=== PATIENT | female | born 1930 | race Caucasian/White ===

== ENCOUNTER 2016-11-10 | Outpatient (CLI) | payer MEDICARE, OTHER | END 2016-11-10 08:12 | disposition home or self-care (01) | CPT/HCPCS: A0425; A0428 ==

== ENCOUNTER 2016-11-10 | Outpatient (CLI) | payer MEDICARE, OTHER | END 2016-11-10 02:51 | disposition critical access hospital (66) | CPT/HCPCS: A0425; A0429 ==

== ENCOUNTER 2016-11-10 03:01 | Emergency (ER) | payer MEDICARE, OTHER ==
[2016-11-10] MEDS ORDERED: HYDROcod/ACETAM 5/325 MG TABLET ONE (05:25)
[2016-11-10] MEDS ORDERED: HYDROcod/ACETAM 5/325 MG TABLET PO STA (05:25)
== END 2016-11-10 08:07 | disposition home or self-care (01) ==
DX: S20.229A Contusion of unspecified back wall of thorax, initial encounter (principal); W18.09XA Striking against other object with subsequent fall, initial encounter; Y92.009 Unspecified place in unspecified non-institutional (private) residence as the place of occurrence of the external cause; M81.0 Age-related osteoporosis without current pathological fracture; Z79.01 Long term (current) use of anticoagulants; Z86.73 Personal history of transient ischemic attack (TIA), and cerebral infarction without residual deficits
CPT/HCPCS: 70450; 72072; 72125; 99283; A9270

== ENCOUNTER 2017-05-07 07:18 | Outpatient (CLI) | payer MEDICARE, OTHER | END 2017-05-07 07:19 | disposition EMS.NT | LOC: EMS 07:18 | PROVIDERS: ATTEND Surgery | DX: M79.604 Pain in right leg (principal); W01.0XXA Fall on same level from slipping, tripping and stumbling without subsequent striking against object, initial encounter; Y92.009 Unspecified place in unspecified non-institutional (private) residence as the place of occurrence of the external cause ==

== ENCOUNTER 2017-05-07 08:17 | Emergency (ER) | payer MEDICARE, OTHER ==
--- NOTE | 2017-05-07 08:50 | ED Physician Documentation ---
History of Present Illness - Stated complaint Stated Complaint: GLF - Chief complaint Chief Complaint: Ext Problem - History obtained from History obtained from: Patient, Family - Additonal information Additional information: This patient is a 86-year-old female brought in for evaluation of a ground- level fall that occurred shortly prior to arrival. History is obtained from the patient and also her nephew who is present in the room. She reports that she appeared to be a little weak for the past few days. The patient complains of a right-sided headache and right lateral hip pain. She denies any significant injury preceding the fall. She denies any syncopal episode. This patient does have a history of multiple medical problems including many recent falls one where she sustained a humerus fracture in the recent past. She does have chronic kidney disease hypertension and has had a gastrointestinal bleed requiring blood transfusion in the past. She also has epilepsy and a distant history of ovarian cancer. She is on anticoagulation. She takes Plavix not Coumadin and any other novel anticoagulant. She denies any chest pain or shortness of breath. She denies any nausea, vomiting, constipation, diarrhea or lower urinary symptoms. There is no complaints of neck pain weakness numbness or tingling. Review of systems: For pertinent positive and negative questions for the review of systems please see history of present illness. Otherwise all other systems have been reviewed and are negative. Dragon disclaimer: Parts of this medical record were created using voice recognition technology. Because of the inherent limitations of this system occasional same sounding word substitutions do occur and persist despite proofreading. Please read the document for context. 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 cancer : Incontinence HEENT: Macular degeneration Psych: None Musculoskeletal: None - Past Surgical History Past Surgical History: Yes /ORACLE IDENTITY MANAGEMENT CONSULTANT: Hysterectomy - Present Medications Home Medications: Ambulatory Orders Medication Instructions Recorded Confirmed Lisinopril [Zestril] 10 mg PO DAILY 07/18/13 11/10/16 Metoprolol Tartrate [Lopressor] 50 mg PO BID 07/18/13 11/10/16 Amlodipine Besylate 7.5 mg PO DAILY 01/02/16 11/10/16 Clopidogrel [Plavix] 75 mg PO DAILY 01/02/16 11/10/16 Hydrochlorothiazide 25 mg PO DAILY 01/02/16 11/10/16 lamoTRIgine [LaMICtal] 100 mg PO BID 01/02/16 11/10/16 Cyclobenzaprine [Flexeril] 10 mg PO TID PRN #10 tablet 11/10/16 Hydrocodone/Acetaminophen 1 - 2 each PO Q6H PRN #14 tablet 11/10/16 [Hydrocodon-Acetaminophen 5-325] - Allergies Allergies/Adverse Reactions: Allergies Allergy/AdvReac Type Severity Reaction Status Date / Time No Known Drug Allergies Allergy Verified 11/10/16 03:15 - Social History Does the pt smoke?: No Smoking Status: Never smoker Does the pt drink ETOH?: No Does the pt have substance abuse?: No - Immunizations Immunizations are current?: No - POLST Patient has POLST: Yes PD ED PE NORMAL - Vitals Vital signs reviewed: Yes - General General: Alert and oriented X 3, No acute distress, Other (Some mild delay in the patient's verbal responses) - HEENT HEENT: Other (Right posterior lateral cephalohematoma) - Neck Neck: Supple, no meningeal sign, No bony TTP, No adenopathy, Thyroid normal, No JVD, No bruit - Cardiac Cardiac: RRR, No murmur, No gallop, No rub - Respiratory Respiratory: No respiratory distress, Clear bilaterally - Abdomen Abdomen: Normal bowel sounds, Soft, Non tender, Non distended - Back Back: No CVA TTP, No spinal TTP - Derm Derm: Normal color, Other (Small abrasion to the right hand, small bruise to the left anterior chest,Small abrasion to the right hand, small bruise to the left anterior chest,) - Extremities Extremities: Other (Small abrasion right hand, normal range of motion of the right hip without limb length discrepancy, tenderness over the lateral greater trochanter area) - Neuro Neuro: Alert and oriented X 3, director of content and programming 2-12 intact, No motor deficit, No sensory deficit Results - Vitals Vitals: Vital Signs - 24 hr 05/07/17 08:25 Temperature 36.4 C L Heart Rate 69 Respiratory 16 Rate Blood Pressure 180/72 H O2 Saturation 98 Oxygen O2 Source Room air - Labs Labs: Laboratory Tests 05/07/17 05/07/17 05/07/17 09:30 09:35 09:35 WBC 12.0 H RBC 3.82 L Hgb 11.4 L Hct 35.0 L MCV 91.5 MCH 29.9 MCHC 32.6 RDW 13.3 Plt Count 267 MPV 7.8 L Neut # 10.2 H Lymph # 1.0 L Swain # 0.7 Eos # 0.1 Baso # 0.0 Absolute Nucleated RBC 0.00 Nucleated RBCs 0.0 PT 10.9 INR 1.0 APTT 25.3 Sodium Potassium Chloride Carbon Dioxide Anion Gap BUN Creatinine Estimated GFR (MDRD) Glucose Calcium Urine Color YELLOW Urine Clarity CLEAR Urine pH 6.0 Ur Specific [place] 1.010 Urine Protein NEGATIVE Urine Glucose (UA) NEGATIVE Urine Ketones NEGATIVE Urine Occult Blood TRACE-LYSE Urine Nitrite NEGATIVE Urine Bilirubin NEGATIVE Urine Urobilinogen 0.2 (NORMAL) Ur Leukocyte Esterase NEGATIVE Ur Microscopic Review NOT INDICATED Urine Culture Comments NOT INDICATED 05/07/17 09:35 WBC RBC Hgb Hct MCV MCH MCHC RDW Plt Count MPV Neut # Lymph # Swain # Eos # Baso # Absolute Nucleated RBC Nucleated RBCs PT INR APTT Sodium 140 Potassium 4.3 Chloride 104 Carbon Dioxide 26 Anion Gap 10.0 BUN 62 H Creatinine 2.2 H Estimated GFR (MDRD) 21 L Glucose 98 Calcium 9.3 Urine Color Urine Clarity Urine pH Ur Specific [place] Urine Protein Urine Glucose (UA) Urine Ketones Urine Occult Blood Urine Nitrite Urine Bilirubin Urine Urobilinogen Ur Leukocyte Esterase Ur Microscopic Review Urine Culture Comments PD MEDICAL DECISION MAKING - ED course ED course: This patient is elderly female who presents after having a mechanical fall this morning. She denies any preceding illness but her nephew does say that she was a little bit moreWeakness last several days. She was complaining of pain and injury to her right posterior lateral scalp, her right hip, and also her right hand. On examination she has a small parietal, occipital contusion on the right side. In regards to her hip she is tender over the greater trochanter and range of motion of the hip is somewhat normal so I suspect an overt or occult hip fracture much less so. In regards her hand there is a very superficial abrasion but there is no evidence of bony abnormality. A CT scan of the patient's head, neck and bony pelvis were performed, reviewed by me, and read by radiology. All of these studies show age-related changes however there are no acute abnormalities seen. There was a mention of moderate diverticulosis on CT scan of the Pelvis but the patient is asymptomatic for diverticulitis. She was able to demonstrate stability on her feet and blood work on this patient demonstrates chronic kidney disease which is known and persistent. There is no evidence of any acute abnormality and her urine is negative for infection. At this point in time the patient is medically stable for discharge to home. Disposition: To home Clinical impression: 1. Status post mechanical fall at home 2. Right occipital parietal cephalhematoma-small 3. Right greater trochanteric hip 4. Chronic kidney disease-stable 5. History of CVA with right-sided weakness-stableI #6 history of gastrointestinal bleed-stable contusion Departure - Departure Disposition: Home, Self Care Clinical Impression: Fall from ground level Contusion of hip and thigh Qualifiers: Encounter type: initial encounter Laterality: right Qualified Code(s): S70.01XA - Contusion of right hip, initial encounter; S70.11XA - Contusion of right thigh, initial encounter Cephalohematoma, non-, traumatic Qualifiers: Encounter type: initial encounter Qualified Code(s): S00.93XA - Contusion of unspecified part of head, initial encounter Condition: Good Instructions: ED Head Injury Closed, ED Hematoma, ED Contusion Hip Follow-Up: Deejay Mauro MD [Primary Care Provider] -
[2017-05-07] MEDS: SODIUM CHLORIDE 0.9% 1,000 ML IV ONE (09:16)
[2017-05-07 09:42] LABS: BASOPHILS % (AUTO) 0.2 %; EOSINOPHILS # (AUTO) 0.1 10^3/uL (0.0-0.7); EOSINOPHILS % (AUTO) 0.9 %; HGB - HEMOGLOBIN 11.4 g/dL (12.0-16.0); LYMPHOCYTES % (AUTO) 8.2 %; MEAN CORPUSCULAR HEMOGLOBIN 29.9 pg (27.0-31.0); MEAN CORPUSCULAR HGB CONC 32.6 g/dL (32.0-36.0); MEAN CORPUSCULAR VOLUME 91.5 fL (81.0-99.0); MEAN PLATELET VOLUME 7.8 fL (7.9-10.8); MONOCYTES # (AUTO) 0.7 10^3/uL (0.0-1.0); MONOCYTES % (AUTO) 5.9 %; NEUTROPHILS # (AUTO) 10.2 10^3/uL (1.5-6.6); NEUTROPHILS % (AUTO) 84.8 %; RED BLOOD COUNT 3.82 10^6/uL (4.20-5.40); RED CELL DISTRIBUTION WIDTH 13.3 % (12.0-15.0)
[2017-05-07 09:47] LABS: BILIRUBIN,URINE NEGATIVE (NEGATIVE)
[2017-05-07 09:49] LABS: CALCIUM 9.3 mg/dL (8.5-10.3); CREATININE 2.2 mg/dL (0.4-1.0); POTASSIUM 4.3 mmol/L (3.5-5.0)
--- NOTE | 2017-05-07 09:51 | CT Preliminary Report ---
Exam: CT Head W/O IMPRESSION: Moderate sized right posterior scalp hematoma. No acute intracranial process. 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 [facility] SITE ID: [id number]
--- NOTE | 2017-05-07 09:53 | CT Report ---
EXAM: CT HEAD WITHOUT CONTRAST EXAM DATE: 05/07/2017 09:07 AM. CLINICAL HISTORY: 86 year-old female post fall with right-sided cephalohematoma. Cephalohematoma. COMPARISON: 11/10/2016 and previous. TECHNIQUE: Multiaxial CT images were obtained from the foramen magnum to the vertex on an emergent ba sis. IV contrast: None. Reformats: Coronal. In accordance with CT protocol optimization, one or more of the following dose reduction techniques w ere utilized for this exam: automated exposure control, adjustment of mA and/or KV based on patient s ize, or use of iterative reconstructive technique. FINDINGS: Parenchyma: Generalized ecvw-sd-tmtkqeik cerebral and cerebellar atrophy, similar to prior exams. No intraparenchymal hemorrhage. No evidence of mass, midline shift, or CT findings of acute infarction. Areas of encephalomalacia in the left frontoparietal region consistent with old CVA, as previously. G ray-white differentiation is distinct. Extraaxial Spaces: Normal for age. No subdural or epidural collections identified. Ventricles: The ventricles and cortical sulci are enlarged, consistent with age-related tissue loss. Sinuses: Imaged paranasal sinuses, orbits, and mastoids show no significant abnormality. Bones: No evidence of fracture or calvarial defect. Other: Diffuse mild chronic microangiopathic white matter changes are evident. Small to moderate sized right posterior parietal scalp hematoma without underlying osseous abnormalit y. IMPRESSION: Moderate sized right posterior scalp hematoma. No acute intracranial process. 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 [facility] Referring Provider Line: [phone] SITE ID: [id number]
[2017-05-07 09:57] LABS: UA CHARGE (STRIP ONLY) YES; UR CULTURE IF IND NOT INDICATED
--- NOTE | 2017-05-07 09:57 | CT Preliminary Report ---
Exam: CT Cervical Spine W/O IMPRESSION: Stable cervical spine. No acute process or acute posttraumatic abnormality. Mild chronic compression deformities lower cervical and upper thoracic spine, stable. [facility] SITE ID: [id number]
--- NOTE | 2017-05-07 10:00 | CT Report ---
EXAM: CT CERVICAL SPINE WITHOUT CONTRAST DATE: 05/07/2017 09:07 AM HISTORY: 86-year-old female post fall with closed head injury. COMPARISONS: Similar study 11/10/2016 and previous. TECHNIQUE: Thin-section axial images were acquired of the cervical spine without contrast on an emerg ent basis. Post-processing: Coronal and sagittal reformats. Other: None. In accordance with CT protocol optimization, one or more of the following dose reduction techniques w ere utilized for this exam: automated exposure control, adjustment of mA and/or KV based on patient s ize, or use of iterative reconstructive technique. FINDINGS: Alignment: Accentuated cervical lordosis, chronic and stable. No subluxations. Bones: No fracture or acute bone lesion. Question of mild chronic compression deformities of the C6 a nd C7 vertebral bodies, similar to earlier studies. Compression deformities upper thoracic spine as w ell, chronic and stable. Interspace Levels/Facets: Multilevel degenerative disk disease, mild to moderate throughout the cervi emily and upper thoracic spine, chronic and stable. Associated degenerative facet disease. Musculature: Normal. No fatty atrophy. Other: The paravertebral and prevertebral soft tissues are normal. The lung apices are clear. Incidental note made of small low-attenuation bilateral thyroid nodules, similar to prior studies. IMPRESSION: Stable cervical spine. No acute process or acute posttraumatic abnormality. Mild chronic compression deformities lower cervical and upper thoracic spine, stable. [facility] Referring Provider Line: [phone] SITE ID: [id number]
[2017-05-07 10:03] LABS: PT - PROTHROMBIN TIME 10.9 secs (9.9-12.6)
--- NOTE | 2017-05-07 10:04 | CT Preliminary Report ---
Exam: CT Pelvis W/O IMPRESSION: No acute process or posttraumatic abnormality involving the pelvis or hips. 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 Incidental note made of moderate to severe diverticulosis of the visualized distal left and sigmoid c olon, without inflammatory change. [facility] SITE ID: [id number]
--- NOTE | 2017-05-07 10:07 | CT Report ---
EXAM: CT BONY PELVIS WITHOUT CONTRAST EXAM DATE: 05/07/2017 09:07 AM. CLINICAL HISTORY: Right hip pain post-fall in an 86-year-old female. COMPARISON: Pelvis and right hip radiographic study performed on 09/08/2011. TECHNIQUE: Thin-section axial images were acquired of the pelvis and both hips without contrast on an emergent basis. Post-processing: Coronal and sagittal reformats. Other: None. In accordance with CT protocol optimization, one or more of the following dose reduction techniques w ere utilized for this exam: automated exposure control, adjustment of mA and/or KV based on patient s ize, or use of iterative reconstructive technique. FINDINGS: Bones: No fracture or acute bone lesion. Sacroiliac Joints: Mild/moderate osteoarthritic changes, age appropriate. No subluxation. Symphysis Pubis: Unremarkable. Right Hip: Moderate to severe osteoarthritis with near kyjt-cv-agbt configuration. No subluxation or joint effusion. Left Hip: Moderate to severe osteoarthritis with near auqy-cd-ioew configuration. No subluxation or j oint effusion. Musculature: Normal. No fatty atrophy. Pelvic Cavity: Moderate to severe diverticulosis of the visualized distal left and sigmoid colon with out inflammatory change. Urinary bladder unremarkable. Uterus surgically absent. No free fluid or hem atoma. Other: No lymphadenopathy. No free air or free fluid. The other visualized soft tissues are unremarka ble. IMPRESSION: No acute process or posttraumatic abnormality involving the pelvis or hips. 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 Incidental note made of moderate to severe diverticulosis of the visualized distal left and sigmoid c olon, without inflammatory change. [facility] Referring Provider Line: [phone] SITE ID: [id number]
[2017-05-07 10:10] LABS: PARTIAL THROMBOPLASTIN TIME 25.3 secs (24.9-33.3)
[2017-05-07 10:29] VITALS: BP 175/63
== END 2017-05-07 10:37 | disposition home or self-care (01) ==
LOC: ED 08:17
DX: S70.01XA Contusion of right hip, initial encounter (principal); S70.11XA Contusion of right thigh, initial encounter; S00.83XA Contusion of other part of head, initial encounter; S60.511A Abrasion of right hand, initial encounter; W01.0XXA Fall on same level from slipping, tripping and stumbling without subsequent striking against object, initial encounter; I45.10 Unspecified right bundle-branch block; R94.31 Abnormal electrocardiogram [ECG] [EKG]; I10 Essential (primary) hypertension; Z86.73 Personal history of transient ischemic attack (TIA), and cerebral infarction without residual deficits; Z85.43 Personal history of malignant neoplasm of ovary
CPT/HCPCS: 36415; 70450; 72125; 72192; 80048; 81001; 81003; 85025; 85610; 85730; 87086; 93005; 99283; 99284

== ENCOUNTER 2017-05-30 09:32 | Outpatient (CLI) | payer MEDICARE, OTHER | END 2017-05-30 09:33 | disposition EMS.NT | LOC: EMS 09:32 | PROVIDERS: ATTEND Surgery | DX: S51.811A Laceration without foreign body of right forearm, initial encounter (principal); W01.0XXA Fall on same level from slipping, tripping and stumbling without subsequent striking against object, initial encounter; Y93.01 Activity, walking, marching and hiking; Y92.008 Other place in unspecified non-institutional (private) residence as the place of occurrence of the external cause ==

== ENCOUNTER 2017-08-19 17:08 | Outpatient (CLI) | payer MEDICARE, OTHER | END 2017-08-19 17:09 | disposition critical access hospital (66) | LOC: EMS 17:08 | PROVIDERS: ATTEND Surgery | DX: R07.89 Other chest pain (principal); S09.90XA Unspecified injury of head, initial encounter; W01.0XXA Fall on same level from slipping, tripping and stumbling without subsequent striking against object, initial encounter; Z79.01 Long term (current) use of anticoagulants; Y93.01 Activity, walking, marching and hiking; Y92.009 Unspecified place in unspecified non-institutional (private) residence as the place of occurrence of the external cause | CPT/HCPCS: A0425; A0427 ==

== ENCOUNTER 2017-08-19 17:20 | Emergency (ER) | payer MEDICARE, OTHER ==
--- NOTE | 2017-08-19 17:41 | ED Physician Documentation ---
History of Present Illness - Stated complaint Stated Complaint: GLF - Chief complaint Chief Complaint: Ext Problem - History obtained from History obtained from: Patient, EMS - History of Present Illness Timing: Today, How many hours ago (1) Pain level max: 5 Pain level now: 5 Improved by: nothing Worsened by: palpation - Additonal information Additional information: Patient is an 86-year-old female who was walking today, slipped tripped and fell backward striking her head. Also landed on the right ribs. Also complains of mild pain to the right hip. Unknown loss of consciousness. She does take Plavix. Nothing makes the pain better, worse with palpation and movement. She was not c-collared or backboarded with EMS. Review of Systems Ten Systems: 10 systems reviewed and negative Constitutional: denies: Fever, Chills Eyes: denies: Decreased vision, Photophobia Ears: denies: Ear pain Nose: denies: Rhinorrhea / runny nose, Congestion Throat: denies: Sore throat Cardiac: denies: Chest pain / pressure Respiratory: denies: Cough, Wheezing GI: denies: Abdominal Pain, Nausea, Vomiting, Diarrhea : denies: Dysuria Skin: denies: Rash Musculoskeletal: denies: Neck pain, Back pain Neurologic: denies: Focal weakness, Numbness, Confused, Altered mental status, Headache PD PAST MEDICAL HISTORY - Past Medical History Past Medical History: Yes Cardiovascular: Hypertension Respiratory: None Neuro: CVA Endocrine/Autoimmune: None GI: Chronic constipation 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 : Incontinence HEENT: Macular degeneration Psych: None Musculoskeletal: None - Past Surgical History Past Surgical History: Yes /SUPERVISOR 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: Hysterectomy - Present Medications Home Medications: Ambulatory Orders Medication Instructions Recorded Confirmed Lisinopril [Zestril] 1 tab PO DAILY 07/18/13 08/19/17 Metoprolol Tartrate [Lopressor] 50 mg PO BID 07/18/13 08/19/17 Amlodipine Besylate 7.5 mg PO DAILY 01/02/16 08/19/17 Clopidogrel [Plavix] 75 mg PO DAILY 01/02/16 08/19/17 Hydrochlorothiazide 25 mg PO DAILY 01/02/16 08/19/17 lamoTRIgine [LaMICtal] 100 mg PO BID 01/02/16 08/19/17 Hydrocodone/Acetaminophen 1 - 2 each PO Q6H PRN #14 tablet 11/10/16 [Hydrocodon-Acetaminophen 5-325] - Allergies Allergies/Adverse Reactions: Allergies Allergy/AdvReac Type Severity Reaction Status Date / Time No Known Drug Allergies Allergy Verified 08/19/17 17:29 - Social History Does the pt smoke?: No Smoking Status: Never smoker Does the pt drink ETOH?: No Does the pt have substance abuse?: No - Immunizations Immunizations are current?: No - POLST Patient has POLST: Yes PD ED PE NORMAL - Vitals Vital signs reviewed: Yes - General General: Alert and oriented X 3, No acute distress, Well developed/nourished - HEENT HEENT: PERRL, EOMI, Ears normal, Moist mucous membranes, Other (Mild occipital hematoma and abrasion to the right occiput.) - Neck Neck: Supple, no meningeal sign, Other (Mild cervical spine tenderness to palpation. No step-off or deformity) - Cardiac Cardiac: RRR, Strong equal pulses - Respiratory Respiratory: No respiratory distress, Clear bilaterally - Abdomen Abdomen: Soft, Non tender, Non distended - Back Back: No spinal TTP - Derm Derm: Warm and dry, Other (Tender to palpation over the right anterior lower ribs, approximately 10 through 12. No crepitus. No ecchymosis.) - Extremities Extremities: No deformity, Other (Mild tenderness to palpation over the right hip. Full range of motion present. Neurovascularly intact) - Neuro Neuro: Alert and oriented X 3, personal security specialist 2-12 intact, No motor deficit, No sensory deficit, Normal speech - Psych Psych: Normal mood, Normal affect Results - Vitals Vitals: Vital Signs - 24 hr 08/19/17 08/19/17 08/19/17 17:26 18:40 20:06 Temperature 36.5 C 36.6 C 36.5 C Heart Rate 80 85 Respiratory 16 15 Rate Blood Pressure 171/73 H 166/77 H O2 Saturation 97 97 Oxygen O2 Source Room air - Labs Labs: Laboratory Tests 08/19/17 08/19/17 08/19/17 17:59 17:59 17:59 WBC 6.9 RBC 4.04 L Hgb 12.3 Hct 37.9 MCV 93.7 MCH 30.5 MCHC 32.6 RDW 14.0 Plt Count 251 MPV 8.0 Neut # 5.4 Lymph # 1.0 L [place] # 0.5 Eos # 0.1 Baso # 0.0 Absolute Nucleated RBC 0.00 Nucleated RBC % 0.0 PT 10.5 INR 0.9 Sodium 138 Potassium 4.0 Chloride 100 L Carbon Dioxide 26 Anion Gap 12.0 BUN 46 H Creatinine 1.8 H Estimated GFR (MDRD) 27 L Glucose 94 Calcium 9.2 Total Bilirubin 0.4 AST 18 ALT 12 Alkaline Phosphatase 95 Total Protein 7.5 Albumin 4.5 Globulin 3.0 Albumin/Globulin Ratio 1.5 Lipase 31 - Rads (name of study) Head CT Radiology: Prelim report reviewed, EMP read contemporaneously, See rad report ( Small to moderate right parieto-occipital scalp hematoma and swelling. No calvarial fracture. 2. Generalized age-related cortical atrophic changes without evidence of acute intracranial abnormality. 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 ) cervical spine CT Radiology: Prelim report reviewed, EMP read contemporaneously, See rad report ( No fracture. Stable anterior compression fractures most notable at C6, C7, T1, T2, and T3 levels. 2. No spondylolisthesis. Exaggerated cervical extension is noted. Normal prevertebral soft tissues. 3. Multilevel degenerative disk and facet arthropathy is unchanged. ) R ribs w chest Radiology: Prelim report reviewed, EMP read contemporaneously, See rad report ( No definite acute fracture; right posterior fifth and sixth rib fractures are of uncertain age. Multiple old left rib fractures. 2. Mild cardiomegaly, increased slightly since 2010, with vascular fullness. ) R hip xray Radiology: Prelim report reviewed, EMP read contemporaneously, See rad report ( No definite acute disease.) PD MEDICAL DECISION MAKING - ED course Complexity details: reviewed results, re-evaluated patient, considered differential, d/w patient, d/w family ED course: Patient is an 86-year-old female who sustained a ground-level fall today. No acute findings on head CT, cervical spine CT, chest and rib x-rays as well as right hip x-ray. Wounds were cleansed and bandaged. No laceration repair. Warnings of infection and instructions on wound care given at bedside. head injury instructions given at bedside Patient and family counseled regarding signs and symptoms for which I believe and urgent re-evaluation would be necessary. Patient with good understanding of and agreement to plan and is comfortable going home at this time This document was made in part using voice recognition software. While efforts are made to proofread this document, sound alike and grammatical errors may occur. Departure - Departure Disposition: 01 Home, Self Care Clinical Impression: Abrasion Fall Qualifiers: Encounter type: initial encounter Qualified Code(s): W19.XXXA - Unspecified fall, initial encounter Head injury Qualifiers: Encounter type: initial encounter Qualified Code(s): S09.90XA - Unspecified injury of head, initial encounter Contusion of rib on right side Qualifiers: Encounter type: initial encounter Qualified Code(s): S20.211A - Contusion of right front wall of thorax, initial encounter Contusion, hip Qualifiers: Encounter type: initial encounter Laterality: right Qualified Code(s): S70.01XA - Contusion of right hip, initial encounter Condition: Good Instructions: ED Contusion Soft Tissue, ED Head Injury Closed Follow-Up: Deejay Mauro MD [Primary Care Provider] - Within 1 week Comments: Your CT scans and xray are normal tonight. Return if you worsen. You can use tylenol for pain. Discharge Date/Time: 08/19/17 20:46
[2017-08-19 18:10] LABS: BASOPHILS % (AUTO) 0.4 %; EOSINOPHILS # (AUTO) 0.1 10^3/uL (0.0-0.7); EOSINOPHILS % (AUTO) 0.9 %; HCT - HEMATOCRIT 37.9 % (37.0-47.0); HGB - HEMOGLOBIN 12.3 g/dL (12.0-16.0); LYMPHOCYTES % (AUTO) 13.9 %; MEAN CORPUSCULAR HEMOGLOBIN 30.5 pg (27.0-31.0); MEAN CORPUSCULAR HGB CONC 32.6 g/dL (32.0-36.0); MEAN CORPUSCULAR VOLUME 93.7 fL (81.0-99.0); MONOCYTES # (AUTO) 0.5 10^3/uL (0.0-1.0); MONOCYTES % (AUTO) 7.4 %; NEUTROPHILS # (AUTO) 5.4 10^3/uL (1.5-6.6); NEUTROPHILS % (AUTO) 77.4 %; RED BLOOD COUNT 4.04 10^6/uL (4.20-5.40); UNCORRECTED WHITE BLOOD COUNT 6.9 x10^3/uL; WHITE BLOOD COUNT 6.9 x10^3/uL (4.8-10.8)
[2017-08-19 18:15] LABS: INR 0.9 (0.8-1.2); PT - PROTHROMBIN TIME 10.5 secs (9.9-12.6)
[2017-08-19 18:23] LABS: ALBUMIN/GLOBULIN RATIO 1.5 (1.0-2.2); BILIRUBIN,TOTAL 0.4 mg/dL (0.2-1.0); CALCIUM 9.2 mg/dL (8.5-10.3); CREATININE 1.8 mg/dL (0.4-1.0); TOTAL PROTEIN 7.5 g/dL (6.7-8.2)
--- NOTE | 2017-08-19 19:02 | XRAY Preliminary Report ---
Exam: XR RIBS W/PA CHEST RT IMPRESSION: 1. No definite acute fracture; right posterior fifth and sixth rib fractures are of uncertain age. Mu ltiple old left rib fractures. 2. Mild cardiomegaly, increased slightly since 2010, with vascular fullness. [facility] SITE ID: [id number]
--- NOTE | 2017-08-19 19:04 | XRAY Report ---
EXAM: RIGHT RIB RADIOGRAPHY EXAM DATE: 08/19/2017 06:01 PM. CLINICAL HISTORY: Fall, R lower rib injury, anterior. COMPARISON: Chest dated 08/31/2011. TECHNIQUE: 1 view of the chest and 2 views of the ribs. Suboptimal penetration and resolution. FINDINGS: Bones: Fractures of posterior right fifth and sixth ribs, age unknown; skin marker is much more cauda l. Multiple old left rib fractures. Osteopenia, degenerative changes. Lungs: Clear. No effusion or pneumothorax. Mediastinum: Mild cardiomegaly, increased. Diffuse ectasia of aorta. Chronic hilar fullness, mild vas cular fullness. Other: None. IMPRESSION: 1. No definite acute fracture; right posterior fifth and sixth rib fractures are of uncertain age. Mu ltiple old left rib fractures. 2. Mild cardiomegaly, increased slightly since 2010, with vascular fullness. [facility] Referring Provider Line: [phone] SITE ID: [id number]
--- NOTE | 2017-08-19 19:05 | XRAY Preliminary Report ---
Exam: XR HIP W/PELVIS 2-3V RT IMPRESSION: No definite acute disease. [facility] SITE ID: [id number]
--- NOTE | 2017-08-19 19:07 | XRAY Report ---
EXAM: RIGHT HIP AND PELVIS RADIOGRAPHY EXAM DATE: 08/19/2017 06:45 PM. HISTORY: Fall, R hip injury. COMPARISONS: 09/08/2011. TECHNIQUE: 1 view of the pelvis and 1 view of the hip. FINDINGS: Bones: Normal. No fracture or bone lesion. Joints: Bilateral hip joint space narrowing with marginal lipping on the left. Unremarkable SI joints and pubic symphysis. Degenerative changes lower lumbar spine. Soft Tissues: Soft tissue calcifications related to left greater trochanter. IMPRESSION: No definite acute disease. [facility] Referring Provider Line: [phone] SITE ID: [id number]
--- NOTE | 2017-08-19 19:54 | CT Preliminary Report ---
Exam: CT HEAD W/O IMPRESSION: 1. Small to moderate right parieto-occipital scalp hematoma and swelling. No calvarial fracture. 2. Generalized age-related cortical atrophic changes without evidence of acute intracranial abnormali ty. 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 [facility] SITE ID: [id number]
[2017-08-19 20:06] VITALS: BP 166/77
--- NOTE | 2017-08-19 20:12 | CT Preliminary Report ---
Exam: CT CERVICAL SPINE W/O IMPRESSION: 1. No fracture. Stable anterior compression fractures most notable at C6, C7, T1, T2 and T3 levels. 2. No spondylolisthesis. Exaggerated cervical extension is noted. Normal prevertebral soft tissues. 3. Multilevel degenerative disk and facet arthropathy is unchanged. [facility] SITE ID: [id number]
--- NOTE | 2017-08-19 20:15 | CT Report ---
EXAM: CT HEAD EXAM DATE: 08/19/2017 07:23 PM. CLINICAL HISTORY: Fall, occipital head injury. COMPARISON: 05/07/2017. TECHNIQUE: Multiaxial CT images were obtained from the foramen magnum to the vertex. IV contrast: Non e. Reformats: Coronal. In accordance with CT protocol optimization, one or more of the following dose reduction techniques w ere utilized for this exam: automated exposure control, adjustment of mA and/or KV based on patient s ize, or use of iterative reconstructive technique. FINDINGS: Parenchyma: No intraparenchymal hemorrhage. No evidence of mass, midline shift, or CT findings of acu te infarction. Burleson-white differentiation is distinct. Chronic cortical infarct in the left frontal l obe middle vertex. Moderate soft tissue swelling in the right occipital parietal region. No calvarial fracture. Extraaxial Spaces: Normal for age. No subdural or epidural collections identified. Ventricles: The ventricles and cortical sulci are enlarged, consistent with age-related tissue loss. Sinuses and orbits: Small right maxillary sinus polyp. Otherwise, the imaged paranasal sinuses, orbit s, and mastoids show no significant abnormality. Bones: No evidence of fracture or calvarial defect. Other: Diffuse chronic microangiopathic white matter changes are evident. Extensive coronary artery c alcifications are present in the cavernous carotid regions. IMPRESSION: 1. Small to moderate right parieto-occipital scalp hematoma and swelling. No calvarial fracture. 2. Generalized age-related cortical atrophic changes without evidence of acute intracranial abnormali ty. 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 [facility] Referring Provider Line: [phone] SITE ID: [id number]
--- NOTE | 2017-08-19 21:09 | CT Report ---
EXAM: CT CERVICAL SPINE WITHOUT CONTRAST DATE: 08/19/2017 07:32 PM HISTORY: Fall, neck pain. COMPARISONS: None. TECHNIQUE: Thin-section axial images were acquired of the cervical spine without contrast. Post-proce ssing: Coronal and sagittal reformats. Other: None. In accordance with CT protocol optimization, one or more of the following dose reduction techniques w ere utilized for this exam: automated exposure control, adjustment of mA and/or KV based on patient s ize, or use of iterative reconstructive technique. FINDINGS: Alignment: Exaggerated hyperextension of the cervical spine is noted. No spondylolisthesis is present . Bones: Osteopenic patient with no acute fracture noted. There are multiple stable lower cervical and upper thoracic spine compression fractures unchanged since a study performed 05/07/2017. There is a s table 30% superior endplate anterior wedging fracture at C6. Stable 40% anterior wedging at C7. Stabl e 10% T1 anterior, 40% T2, and 30% T3 anterior wedging. Interspace Levels/Facets: Stable multilevel degenerative disk and facet arthropathy noted throughout the cervical spine. Overall degree is unchanged since the prior study. No evidence of focal progressi ve facet or degenerative disk disease. Musculature: Normal. No fatty atrophy. Other: The paravertebral and prevertebral soft tissues are normal. The lung apices are clear. 0.9 cm low-density right thyroid nodule on image 61. IMPRESSION: 1. No fracture. Stable anterior compression fractures most notable at C6, C7, T1, T2, and T3 levels. 2. No spondylolisthesis. Exaggerated cervical extension is noted. Normal prevertebral soft tissues. 3. Multilevel degenerative disk and facet arthropathy is unchanged. [facility] Referring Provider Line: [phone] SITE ID: [id number]
== END 2017-08-19 20:46 | disposition home or self-care (01) ==
LOC: EDUNIT# → ED 17:20
DX: S09.90XA Unspecified injury of head, initial encounter (principal); S20.211A Contusion of right front wall of thorax, initial encounter; S70.01XA Contusion of right hip, initial encounter; W01.0XXA Fall on same level from slipping, tripping and stumbling without subsequent striking against object, initial encounter; I10 Essential (primary) hypertension; Z86.73 Personal history of transient ischemic attack (TIA), and cerebral infarction without residual deficits; Z85.43 Personal history of malignant neoplasm of ovary
CPT/HCPCS: 36415; 70450; 72125; 80053; 83690; 85025; 85610; 99283; 99284

== ENCOUNTER 2017-09-10 15:20 | Outpatient (CLI) | payer MEDICARE, OTHER | END 2017-09-10 15:21 | disposition EMS.NT | LOC: EMS 15:20 | PROVIDERS: ATTEND Surgery | DX: Z03.89 Encounter for observation for other suspected diseases and conditions ruled out (principal); W18.30XA Fall on same level, unspecified, initial encounter; Y92.003 Bedroom of unspecified non-institutional (private) residence as the place of occurrence of the external cause ==

== ENCOUNTER 2017-11-05 06:12 | Outpatient (CLI) | payer MEDICARE, OTHER ==
[2017-11-05] MEDS ORDERED: SODIUM CHLORIDE 0.9% 1,000 ML IV ONE (12:20)
[2017-11-05] MEDS ORDERED: BUPIVACAINE 0.25%-EPI 1:200000 PF 30 ML VIAL SUBQ ONE (13:06)
[2017-11-05] MEDS ORDERED: LACTATED RINGERS 1,000 ML IV ONE (13:40)
--- NOTE | 2017-11-05 18:02 | XRAY Report ---
EXAM: FLUOROSCOPIC GUIDANCE EXAM DATE: 11/05/2017 02:03 PM. CLINICAL HISTORY: Right hip fracture. COMPARISON: None. FINDINGS: Intraoperative fluoroscopy for surgical guidance IMPRESSION: Fluoroscopic guidance provided for Dr. Mancera. Total fluoroscopy time: 27 seconds. Number o f images: 4. CANDICE Referring Provider Line: [phone] SITE ID: [id number]
== END 2017-11-05 06:13 | disposition critical access hospital (66) ==
LOC: EMS 06:12
PROVIDERS: ATTEND Surgery
DX: M25.551 Pain in right hip (principal); S09.90XA Unspecified injury of head, initial encounter; Z79.01 Long term (current) use of anticoagulants; W22.8XXA Striking against or struck by other objects, initial encounter; W18.30XA Fall on same level, unspecified, initial encounter; Y92.009 Unspecified place in unspecified non-institutional (private) residence as the place of occurrence of the external cause
CPT/HCPCS: 73501; A0425; A0429; C1713; J7120

== ENCOUNTER 2017-11-05 06:21 | Inpatient (IN) | payer MEDICARE, OTHER ==
--- NOTE | 2017-11-05 07:33 | XRAY Report ---
EXAM: RIGHT HIP AND PELVIS RADIOGRAPHY EXAM DATE: 11/05/2017 07:16 AM. HISTORY: Fall, right hip pain. COMPARISONS: 08/19/2017. TECHNIQUE: 1 view of the pelvis and 2 views of the hip. FINDINGS: Bones: Mildly displaced and comminuted intertrochanteric right proximal femur fracture. Osteopenia. Joints: No malalignment. Moderate degenerative changes in both hips. Soft Tissues: Normal. No soft tissue swelling. IMPRESSION: Mildly displaced and comminuted intertrochanteric right proximal femur fracture. [facility] Referring Provider Line: [phone] SITE ID: [id number]
--- NOTE | 2017-11-05 07:33 | XRAY Preliminary Report ---
Exam: XR HIP W/PELVIS 2-3V RT IMPRESSION: Mildly displaced and comminuted intertrochanteric right proximal femur fracture. [facility] SITE ID: [id number]
--- NOTE | 2017-11-05 07:40 | CT Report ---
EXAM: CT HEAD EXAM DATE: 11/05/2017 07:14 AM. CLINICAL HISTORY: 86-year-old woman status post fall with head injury and currently on Plavix. COMPARISON: 08/19/2017. TECHNIQUE: Multiaxial CT images were obtained from the foramen magnum to the vertex. Reformats: Coron al. IV contrast: None. In accordance with CT protocol optimization, one or more of the following dose reduction techniques w ere utilized for this exam: automated exposure control, adjustment of mA and/or KV based on patient s ize, or use of iterative reconstructive technique. FINDINGS: Parenchyma: No evidence of acute infarct, hemorrhage, or mass lesion. Scattered encephalomalacia is p resent in the posteromedial left frontal lobe, unchanged from the 08/19/2017 exam and consistent with remote infarct. Otherwise, the parenchyma demonstrates mild periventricular hypoattenuation, a commo n finding in this age group and also unchanged. Ventricles and Extra-axial Spaces: Ventricles are symmetric and unchanged in size. No extra-axial hem orrhage or fluid collection. Orbits: Unremarkable except for left-sided lens replacement surgery. Sinuses: The paranasal sinuses are clear except for a mucous retention cyst in the right maxillary si nus. Mastoid air cells are clear. Extracranial Soft Tissues and Bones: Subgaleal hematoma is present over the right parietal bone. No c alvarial fractures. IMPRESSION: 1. No acute intracranial abnormality. Specifically, no evidence of intracranial hemorrhage or calvari al fracture. 2. Right parietal scalp hematoma. 3. Encephalomalacia in the left frontal lobe, unchanged from the 08/19/2017 exam and consistent with remote infarct. [facility] Referring Provider Line: [phone] SITE ID: [id number]
--- NOTE | 2017-11-05 07:53 | CT Report ---
EXAM: CT CERVICAL SPINE WITHOUT CONTRAST DATE: 11/05/2017 07:15 AM. HISTORY: 86-year-old woman status post fall with head injury and on Plavix. COMPARISONS: 08/19/2017. TECHNIQUE: Thin-section axial images were acquired of the cervical spine without contrast. Post-proce ssing: Coronal and sagittal reformats. Other: None. In accordance with CT protocol optimization, one or more of the following dose reduction techniques w ere utilized for this exam: automated exposure control, adjustment of mA and/or KV based on patient s ize, or use of iterative reconstructive technique. FINDINGS: Alignment: No significant spondylolisthesis. There is exaggeration of normal cervical lordosis, as on 08/19/2017 exam. Bones: No fracture or bone lesion. Interspace Levels/Facets: C1-C2: Unremarkable. C2-C3: Unremarkable. C3-C4: Posterior disk osteophyte complex resulting mild narrowing of the central canal, unchanged. Un covertebral joint hypertrophy and facet hypertrophy results in mild narrowing of the neural foramina bilaterally, unchanged. C4-C5: Posterior disk osteophyte complex results in mild narrowing of the central canal, unchanged. T here is mild uncovertebral joint hypertrophy without significant narrowing of the neural foramina. C5-C6: No significant central canal stenosis. Uncovertebral joint hypertrophy and facet hypertrophy r esult in minimal narrowing of the neural foramina bilaterally, unchanged. C6-C7: Posterior disk osteophyte complex results in minimal narrowing of the central canal, unchanged . No significant neural foraminal narrowing. C7-T1: Unremarkable. Musculature: Normal. No fatty atrophy. Other: The paravertebral and prevertebral soft tissues are unremarkable. IMPRESSION: 1. No acute fracture or malalignment. 2. Mild multilevel degenerative changes without significant central canal or neural foraminal narrowi ng, unchanged from the 08/19/2017 exam. [facility] Referring Provider Line: [phone] SITE ID: [id number]
[2017-11-05] MEDS ORDERED: SODIUM CHLORIDE 0.9% 1,000 ML IV ONE ×2 (07:56→12:20)
[2017-11-05] MEDS ORDERED: HYDROmorphone 1 MG/ML SYRINGE IVP STA (07:56)
[2017-11-05] MEDS ORDERED: ONDANSETRON 4 MG/2 ML VIAL IVP STA (07:56)
--- NOTE | 2017-11-05 07:59 | ED Physician Documentation ---
PD HPI LOWER EXT INJURY - Stated complaint Stated Complaint: GLF - Chief complaint Chief Complaint: Trauma Ext - History obtained from History obtained from: Patient, Family - History of Present Illness PD HPI LOW EXT INJURY LOCATION: Right, Hip Type of injury: Fall Where injury occurred: Home Timing - onset: Enter time (0200), Today Timing - duration: Hours Timing - details: Abrupt onset, Still present Improved by: Rest, Immobilization Worsened by: Moving, Palpating Associated symptoms: No: Weakness, Numbness, Tingling Contributing factors: No: Anticoagulated Similar symptoms before: Has not had sx before Recently seen: Clinic - Additional information Additional information: 86-year-old noncompliant female has had a fall in her closet this morning at 2: 00 in the morning. She does have a grand nephew that cares for her in her home and he put her back into her bed. She was unable to get comfortable even with some Tylenol and eventually called the ambulance. The patient does have some shortening of the right lower extremity and more could hip pain. She does have a cephalhematoma on her head but did not have loss of consciousness. Review of Systems Constitutional: denies: Fever Eyes: denies: Decreased vision Ears: denies: Ear pain Nose: denies: Congestion Throat: denies: Sore throat Cardiac: denies: Chest pain / pressure, Palpitations Respiratory: denies: Dyspnea, Cough GI: denies: Abdominal Pain, Nausea, Vomiting, Constipation, Diarrhea : denies: Dysuria Skin: denies: Rash Musculoskeletal: reports: Neck pain, Extremity pain, Joint pain Neurologic: reports: Generalized weakness. denies: Focal weakness, Numbness PD PAST MEDICAL HISTORY - Past Medical History Cardiovascular: Hypertension Respiratory: None Neuro: CVA Endocrine/Autoimmune: None GI: Chronic constipation [employer]: Ovarian cancer : Incontinence HEENT: Macular degeneration Psych: None Musculoskeletal: None - Past Surgical History Past Surgical History: Yes /[employer]: Hysterectomy - Present Medications Home Medications: Ambulatory Orders Medication Instructions Recorded Confirmed Lisinopril [Zestril] 1 tab PO DAILY 07/18/13 08/19/17 Metoprolol Tartrate [Lopressor] 50 mg PO BID 07/18/13 08/19/17 Amlodipine Besylate 7.5 mg PO DAILY 01/02/16 08/19/17 Clopidogrel [Plavix] 75 mg PO DAILY 01/02/16 08/19/17 Hydrochlorothiazide 25 mg PO DAILY 01/02/16 08/19/17 lamoTRIgine [LaMICtal] 100 mg PO BID 01/02/16 08/19/17 - Allergies Allergies/Adverse Reactions: Allergies Allergy/AdvReac Type Severity Reaction Status Date / Time No Known Drug Allergies Allergy Verified 11/05/17 06:29 - Social History Does the pt smoke?: No Smoking Status: Never smoker Does the pt drink ETOH?: No Does the pt have substance abuse?: No - Immunizations Immunizations are current?: No - POLST Patient has POLST: Yes PD ED PE NORMAL - Vitals Vital signs reviewed: Yes (hypertension) - General General: Alert and oriented X 3, No acute distress, Well developed/nourished - HEENT HEENT: PERRL, EOMI, Other (There is a firm hematoma to the right parietal/ occipital area. The mucous membranes are dry. ) - Neck Neck: Supple, no meningeal sign, Other (There is mild mid cervical spine tenderness) - Cardiac Cardiac: RRR, Other (2/6 holosystolic murmer at LSB) - Respiratory Respiratory: No respiratory distress, Clear bilaterally - Abdomen Abdomen: Soft - Back Back: No CVA TTP, No spinal TTP - Derm Derm: Normal color, Warm and dry, No rash - Extremities Extremities: Other (There is shortening and external rotation to the right LE with pain over the trohchanter. ROM testing is not done. ) - Neuro Neuro: Alert and oriented X 3, No motor deficit, No sensory deficit, Normal speech Eye Opening: Spontaneous Motor: Obeys Commands Verbal: Oriented GCS Score: 15 - Psych Psych: Normal mood, Normal affect Results - Vitals Vitals: Vital Signs - 24 hr 11/05/17 06:28 Temperature 37.0 C Heart Rate 67 Respiratory 18 Rate Blood Pressure 169/72 H O2 Saturation 95 Oxygen O2 Source Room air - Labs Labs: Laboratory Tests 11/05/17 11/05/17 11/05/17 06:10 06:10 06:10 WBC 12.5 H RBC 3.51 L Hgb 10.9 L Hct 32.5 L MCV 92.7 MCH 31.2 H MCHC 33.7 RDW 14.3 Plt Count 260 MPV 8.4 Neut # 11.1 H Lymph # 0.7 L Lyman # 0.6 Eos # 0.0 Baso # 0.0 Absolute Nucleated RBC 0.00 Nucleated RBC % 0.0 Sodium 141 Potassium 4.1 Chloride 104 Carbon Dioxide 27 Anion Gap 10.0 BUN 45 H Creatinine 2.0 H Estimated GFR (MDRD) 24 L Glucose 108 H Calcium 9.1 Total Bilirubin 0.3 AST 16 ALT 14 Alkaline Phosphatase 101 Troponin I < 0.04 Total Protein 6.7 Albumin 3.9 Globulin 2.8 Albumin/Globulin Ratio 1.4 Lipase 23 - Rads (name of study) Right hip Radiology: Prelim report reviewed (Impression: Mildly displaced and comminuted intertrochanteric right proximal femur fracture.), EMP read indepedently, See rad report CT head Radiology: Prelim report reviewed (Impression: 1. No acute intracranial abnormality. Specifically, no evidence of intracranial hemorrhage or calvarial fracture. 2. Right parietal scalp hematoma. 3. Encephalomalacia in the left frontal lobe, unchanged from 08/19/2017 exam and consistent with remote infarct. ), EMP read indepedently, See rad report CT cervical spine without Radiology: Prelim report reviewed (Impression: 1. No acute fracture or malalignment. 2. Mild multi-level degenerative changes without significant central canal or neural foraminal narrowing, unchanged from 08/19/2017 exam.), EMP read indepedently, See rad report Procedures - IVC sono (time) 0750 Bedside IVC sono: IVC measures (cm) (0.9), IVC collapsed c insp (cm) (complete) , Dehydration PD MEDICAL DECISION MAKING - ED course Complexity details: reviewed old records, reviewed results, re-evaluated patient , considered differential, d/w patient, d/w family ED course: 86-year-old female who lives at home with a caregiver has fallen her closet and broken her right hip. A martinez is placed, the patient is given narcotic pain medication for pain control and Dr. Mancera is consulted in the case. Departure - Departure Disposition: 66 [facility] DC/Xfer Clinical Impression: Dehydration Intertrochanteric fracture of right femur Qualifiers: Encounter type: initial encounter Fracture type: closed Fracture alignment: displaced Qualified Code(s): S72.141A - Displaced intertrochanteric fracture of right femur, initial encounter for closed fracture Condition: Stable Discharge Date/Time: 11/05/17 09:53
[2017-11-05 08:10] LABS: BASOPHILS % (AUTO) 0.2 %; EOSINOPHILS % (AUTO) 0.3 %; HGB - HEMOGLOBIN 10.9 g/dL (12.0-16.0); LYMPHOCYTES # (AUTO) 0.7 10^3/uL (1.5-3.5); LYMPHOCYTES % (AUTO) 5.3 %; MEAN CORPUSCULAR HEMOGLOBIN 31.2 pg (27.0-31.0); MEAN CORPUSCULAR HGB CONC 33.7 g/dL (32.0-36.0); MEAN CORPUSCULAR VOLUME 92.7 fL (81.0-99.0); MEAN PLATELET VOLUME 8.4 fL (7.9-10.8); MONOCYTES # (AUTO) 0.6 10^3/uL (0.0-1.0); MONOCYTES % (AUTO) 5.1 %; NEUTROPHILS # (AUTO) 11.1 10^3/uL (1.5-6.6); NEUTROPHILS % (AUTO) 89.1 %; PLT - PLATELET COUNT 260 10^3/uL (130-450); RED BLOOD COUNT 3.51 10^6/uL (4.20-5.40); RED CELL DISTRIBUTION WIDTH 14.3 % (12.0-15.0); WHITE BLOOD COUNT 12.5 x10^3/uL (4.8-10.8)
[2017-11-05 08:21] LABS: ALBUMIN 3.9 g/dL (3.2-5.5); ALBUMIN/GLOBULIN RATIO 1.4 (1.0-2.2); BILIRUBIN,TOTAL 0.3 mg/dL (0.2-1.0); CALCIUM 9.1 mg/dL (8.5-10.3); TOTAL PROTEIN 6.7 g/dL (6.7-8.2)
[2017-11-05] MEDS ORDERED: SODIUM CHLORIDE FLUSH 0.9% 10 ML SYRINGE IVP PRN ×2 (09:07→13:48)
[2017-11-05] MEDS ORDERED: TEMAZEPAM 15 MG CAPSULE PO PRN (09:07)
--- NOTE | 2017-11-05 09:07 | HISTORY & PHYSICAL EXAMINATION ---
Chief Complaint - Chief Complaint Chief Complaint: fall, fractured hip History of Present Illness - Admitted From Admitted From:: ED - History Obtained From Records Reviewed: yes History obtained from: ED, son-Lalo was the primary interviewee, patient Exam Limitations: AMS of patient, able to obtain information from son. - History of Present Illness HPI Comment/Other: Quiana Tijerina is an elderly, well-appearing 86-year old female with a past medical history of CVA-residual mental capacity, hypertension, chronic constipation, ovarian cancer, urinary incontinence, and vision loss. She presented to the ED via EMS who arrived at her home after the life-line alert was activated. Patient was found in a closet around 2AM, because it was reported that she was getting ready for a baby shower later today and was confused about what time it was. According to her son, Osvaldo, she has been more confused for up to a week before this fall. Once the patient arrived in the ED she was found to have a suspected fractured hip, x-ray confirmed, an elevated WBC count of 15.4, and foul smelling urine. Patient will be admitted and cleared for surgery with Dr. Mancera, Orthopedic surgery. 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 She is the only one left living. Living arrangement: At home Living Situation: Alone, With caregiver(s) (daily hired care-givers.) Social History Notes: Patient lives alone. She has always lived on this [place] and currently resides in [place]. 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 Her at age 60, and she has never re-. She had one son, Osvaldo and one daughter who is now . - Substance History Use: Uses substance without health or social issues: NONE Abuse: Recurrent use of substance despite neg consequences: NONE Dependence: Experiences withdrawal or developed tolerances: NONE - POLST Patient has POLST: Yes POLST Status: Full Code Meds/Allgy - Home Medications Home Medications: Ambulatory Orders Medication Instructions Recorded Confirmed Lisinopril [Zestril] 1 tab PO DAILY 07/18/13 08/19/17 Metoprolol Tartrate [Lopressor] 50 mg PO BID 07/18/13 08/19/17 Amlodipine Besylate 7.5 mg PO DAILY 01/02/16 08/19/17 Clopidogrel [Plavix] 75 mg PO DAILY 01/02/16 08/19/17 Hydrochlorothiazide 25 mg PO DAILY 01/02/16 08/19/17 lamoTRIgine [LaMICtal] 100 mg PO BID 01/02/16 08/19/17 - Allergies Allergies/Adverse Reactions: Allergies Allergy/AdvReac Type Severity Reaction Status Date / Time No Known Drug Allergies Allergy Verified 11/05/17 06:29 Review of Systems - Constitutional Constitutional: reports: Poor appetite - Eyes Eyes: reports: Field loss, Vision loss - Gastrointestinal Gastrointestinal: reports: Reflux/heartburn - Genitourinary Genitourinary: reports: Dysuria, Incontinence, Nocturia - Neurological Neurological: reports: Memory problems, Pre-existing deficit, Other (history of CVA) - All Other Systems All Other Systems: reports: Reviewed and negative Exam - Vital Signs Reviewed Vital Signs: Yes Vital Signs: Vital Signs x48h Temp Pulse Resp BP Pulse Ox 11/05/17 06:28 37.0 C 67 18 169/72 H 95 - Physical Exam General Appearance: positive: Alert, Moderate distress, Other (confused, reaching for things in the air, pin-point pupils d/t narcotics.) Eyes Bilateral: positive: Normal inspection ENT: positive: ENT inspection nml, Pharynx nml, Dry mucous membranes Neck: positive: Nml inspection, Thyroid nml, Stiff neck Respiratory: positive: Chest non-tender, No respiratory distress, Breath sounds nml Cardiovascular: positive: Regular rate & rhythm, No murmur, No gallop Peripheral Pulses: positive: 2+ Abdomen: positive: Non-tender, No organomegaly, Nml bowel sounds, No distention Back: positive: Nml inspection Skin: positive: No rash, Warm, Dry Extremities: positive: Nml appearance, Pedal edema, Other (right leg with loss of motion, painful and fracture.) Neurologic/Psychiatric: positive: Disoriented to person, Disoriented to place, Disoriented to time, Weakness, Sensory loss, Depressed mood/affect Reflexes: Bicep (R): 2+, Bicep (L): 2+ Conclusion/Plan - Problem List (1) Intertrochanteric fracture of right femur Conclusion/Plan: Patient was found by EMS in her closet after a fall with injury to right hip. X -rays confirm fracture, ortho surgery plans to operate today. Plan: Medical clearance by hospitalist. Patient has no alarming findings on exam, during admission interview or upon chart review. Risk factor for sudden cardiac event is there due to previous CVA, and patient's age. Informed son, Osvaldo of these finding and Dr. Mancera is aware. Plans to proceed with surgical intervention. Qualifiers: Encounter type: initial encounter Fracture type: closed Fracture alignment: displaced Qualified Code(s): S72.141A - Displaced intertrochanteric fracture of right femur, initial encounter for closed fracture (2) Fall Conclusion/Plan: Patient has a Life-line that is provided by this hospital. Patient has not had several falls, and none with injury prior to this event. I suspect UTI, dehydration was the primary cause. Plan: Fall precautions and avoid long-term narcotics. Qualifiers: Encounter type: initial encounter Qualified Code(s): W19.XXXA - Unspecified fall, initial encounter (3) Hypertension Conclusion/Plan: Patient has a prominent history of this and is on several agents that seems to be the right formula for her per her son, Osvaldo. She has seen a oil field pumper and PCP to make adjustments. Plan: continue medical management. (4) CVA, old, cognitive deficits Conclusion/Plan: Patient has a history of this which has left her with mild memory deficits and cognitive functioning. Plan: Resume plavix after surgery. (5) Chronic constipation Conclusion/Plan: Patient suspected to have slow bowels due to antihypertensive medications. Plan: Prescribed extra bowel medications, especially post op. Code status: FULL per son, who is POA-see POLST. DVT prophlaxis: SCDs, then Lovenox post op, continue Plavix after surgery. - Lab Results Lab results reviewed: Yes Fish Bones: 11/05/17 06:10 11/05/17 06:10 - Diagnostic Imaging Results Diagnostic Imaging Results: positive: Prelim report reviewed, Final report reviewed - EKG Results EKG Interpreted Independently: Yes Core Measures - Anticipated LOS I expect patient to be DC'd or transferred within 96 hours.: Yes - DVT/VTE - Prophylaxis VTE/DVT Device ordered at admit?: Yes VTE/DVT Prophylaxis med ordered at admit?: No Not Ordered - Medical Reason: Contraindicated - Stroke - Rehab Assessment Rehab services assessment to be ordered?: Yes - AMI - Statin at Admit Aspirin Prescribed on Admit: No Not Ordered - Medical Reason: Contraindicated
[2017-11-05 09:29] LABS: BILIRUBIN,URINE NEGATIVE (NEGATIVE); GLUCOSE, URINE (UA) NEGATIVE (NEGATIVE); KETONES,URINE (UA) NEGATIVE (NEGATIVE); LEUKOCYTE ESTERASE, URINE NEGATIVE (NEGATIVE); NITRITE,URINE NEGATIVE (NEGATIVE); OCCULT BLOOD,URINE TRACE-INTA (NEGATIVE); PROTEIN,URINE NEGATIVE (NEGATIVE); UROBILINOGEN,URINE 0.2 (NORMAL) E.U./dL (NORMAL)
[2017-11-05 09:33] LABS: CLARITY,URINE CLEAR (CLEAR)
[2017-11-05] MEDS ORDERED: SODIUM CHLORIDE 0.9% 1,000 ML IV SCH (10:00)
--- NOTE | 2017-11-05 10:51 | PROVIDER PROGRESS NOTE ---
Subjective - Prog Note Date Prog Note Date: 11/05/17 Prog Note Time: 10:47 - Subjective Pt reports feeling: Worse (Painful right hip after a fall this early AM. No LOC or other injury. Unable to stand or weight bear on right after the fall. Taken to ED where XR show her right IT hip fracture. Last ate last PM. No distal weakness/numbness) Objective - Vital Signs/Intake & Output Vital Signs: Vital Signs x48h Temp Pulse Pulse Resp BP Pulse Ox 11/05/17 10:20 36.4 C L 87 18 148/67 H 93 11/05/17 09:36 68 16 Intake & Output: Intake & Output 11/02/17 11/03/17 11/04/17 11/05/17 23:59 23:59 23:59 23:59 Intake Total 1000 Balance 1000 - Lab Results Fish Bones: 11/05/17 06:10 11/05/17 06:10 Other Labs: Lab Results x24hrs 11/05/17 Range/Units 09:26 Urine Color YELLOW Urine Clarity CLEAR (CLEAR) Urine pH 6.0 (5.0-7.5) PH Ur Specific [place] 1.020 (1.002-1.030) Urine Protein NEGATIVE (NEGATIVE) mg/dL Urine Glucose (UA) NEGATIVE (NEGATIVE) mg/dL Urine Ketones NEGATIVE (NEGATIVE) mg/dL Urine Occult Blood TRACE-INTA (NEGATIVE) Urine Nitrite NEGATIVE (NEGATIVE) Urine Bilirubin NEGATIVE (NEGATIVE) Urine Urobilinogen 0.2 (NORMAL) (NORMAL) E.U./dL Ur Leukocyte Esterase NEGATIVE (NEGATIVE) Ur Microscopic Review NOT INDICATED Urine Culture Comments NOT INDICATED - Diagnostic Imaging Diagnostic Imaging Comments: XR show right IT hip fracture Assessment/Plan - Problem List (1) Intertrochanteric fracture of right femur Impression: PLAN: Medical service has cleared for hip surgery today. Plan short interTan nailing of right hip fracture today. Risk and benefits of surgery explained to patient's son, who has POA. Consent signed. Leg marked. Qualifiers: Encounter type: initial encounter Fracture type: closed Fracture alignment: displaced Qualified Code(s): S72.141A - Displaced intertrochanteric fracture of right femur, initial encounter for closed fracture
[2017-11-05] MEDS ORDERED: ceFAZolin 2 GM/50 ML 2 GM/50 ML BAG IV SCH (11:30)
[2017-11-05] MEDS ORDERED: ONDANSETRON 4 MG/2 ML VIAL IVP ONE (13:05)
[2017-11-05] MEDS ORDERED: PROPOFOL 200 MG/20 ML VIAL IVP ONE (13:05)
[2017-11-05] MEDS ORDERED: fentaNYL 100 MCG/2 ML VIAL IVP ONE (13:05)
[2017-11-05] MEDS ORDERED: ACETAMINOPHEN 1,000 MG/100 ML 100 ML IV ONE (13:05)
[2017-11-05] MEDS ORDERED: ePHEDrine 50 MG/ML VIAL IVP ONE (13:05)
[2017-11-05] MEDS ORDERED: LIDOCAINE-MPF 2% 5 ML VIAL IM ONE (13:05)
[2017-11-05] MEDS ORDERED: BUPIVACAINE 0.25%-EPI 1:200000 PF 30 ML VIAL SUBQ ONE (13:06)
[2017-11-05] MEDS: SODIUM CHLORIDE FLUSH 0.9% 10 ML SYRINGE IVP SCH ×2 (13:22→18:20)
[2017-11-05] MEDS ORDERED: LACTATED RINGERS 1,000 ML IV ONE (13:40)
[2017-11-05] MEDS ORDERED: DOCUSATE SODIUM 100 MG CAPSULE PO PRN (13:48)
[2017-11-05] MEDS ORDERED: PROCHLORPERAZINE 10 MG/2 ML VIAL IVP PRN (13:48)
[2017-11-05] MEDS ORDERED: ACETAMINOPHEN 325 MG TABLET PO PRN (13:48)
[2017-11-05] MEDS ORDERED: SENNA 8.6 MG TABLET PO PRN (13:48)
[2017-11-05] MEDS ORDERED: ONDANSETRON 4 MG/2 ML VIAL IVP PRN (13:48)
--- NOTE | 2017-11-05 13:48 | OPERATIVE REPORT ---
Operative Report - General Admit Date: 11/05/17 Procedure Date: 11/05/17 Planned Procedure: Short interTan nailing of right hip fracture Pre-Op Diagnosis: Right hip fracture Procedure Performed: Short interTan nailing of right hip fracture Post Op Diagnosis: Same - Procedure Note Primary Surgeon: Jolanta Mancera Secondary Surgeon: None Anesthesia Provider: Tr Lyles CRNA Anesthesia Technique: General LMA IV Fluids (mL): 1,000 Estimated Blood Loss (mL): 75 Complications: None
[2017-11-05] MEDS ORDERED: SODIUM CHLORIDE FLUSH 0.9% 10 ML SYRINGE IVP SCH (14:00)
[2017-11-05] MEDS ORDERED: HYDROmorphone 1 MG/ML SYRINGE ONE (14:09)
[2017-11-05] MEDS: SODIUM CHLORIDE 0.9% 1,000 ML IV SCH (14:48)
--- NOTE | 2017-11-05 18:02 | XRAY Report ---
REVISED: REPORT ORIGINALLY SIGNED ON 11/05/2017 @1802; REPORT MOVED TO CORRECT ACCOUNT ON 11/22/2017 jll. EXAM: FLUOROSCOPIC GUIDANCE EXAM DATE: 11/05/2017 02:03 PM. CLINICAL HISTORY: Right hip fracture. COMPARISON: None. FINDINGS: Intraoperative fluoroscopy for surgical guidance IMPRESSION: Fluoroscopic guidance provided for Dr. Mancera. Total fluoroscopy time: 27 seconds. Number of images: 4. KENNETHA Referring Provider Line: [phone] SITE ID: [id number]
[2017-11-05] MEDS: ACETAMINOPHEN 1,000 MG/100 ML 100 ML IV PRN (18:07)
[2017-11-05] MEDS: MORPHINE 2 MG/ML SYRINGE IVP PRN ×3 (18:07→22:20)
[2017-11-05] MEDS: ceFAZolin 2 GM/50 ML 2 GM/50 ML BAG IV SCH (18:20)
[2017-11-06] MEDS: SODIUM CHLORIDE 0.9% 1,000 ML IV SCH ×3 (01:32→18:09)
[2017-11-06] MEDS: MORPHINE 2 MG/ML SYRINGE IVP PRN ×2 (01:32→06:57)
[2017-11-06] MEDS: ACETAMINOPHEN 1,000 MG/100 ML 100 ML IV PRN ×3 (01:44→16:22)
[2017-11-06] MEDS: ceFAZolin 2 GM/50 ML 2 GM/50 ML BAG IV SCH (02:20)
[2017-11-06 05:49] LABS: BASOPHILS % (AUTO) 0.2 %; EOSINOPHILS % (AUTO) 0.1 %; HGB - HEMOGLOBIN 7.6 g/dL (12.0-16.0); LYMPHOCYTES # (AUTO) 0.7 10^3/uL (1.5-3.5); LYMPHOCYTES % (AUTO) 6.9 %; MEAN CORPUSCULAR HEMOGLOBIN 31.6 pg (27.0-31.0); MEAN CORPUSCULAR HGB CONC 33.5 g/dL (32.0-36.0); MEAN CORPUSCULAR VOLUME 94.3 fL (81.0-99.0); MEAN PLATELET VOLUME 7.9 fL (7.9-10.8); MONOCYTES # (AUTO) 0.8 10^3/uL (0.0-1.0); MONOCYTES % (AUTO) 7.9 %; NEUTROPHILS % (AUTO) 84.9 %; PLT - PLATELET COUNT 202 10^3/uL (130-450); RED CELL DISTRIBUTION WIDTH 14.5 % (12.0-15.0); WHITE BLOOD COUNT 10.6 x10^3/uL (4.8-10.8)
[2017-11-06] MEDS: SODIUM CHLORIDE FLUSH 0.9% 10 ML SYRINGE IVP SCH ×3 (05:56→19:11)
--- NOTE | 2017-11-06 06:18 | CONSULTATION NOTE ---
DATE OF SERVICE: Physician: Joel Mancera MD DATE OF CONSULTATION: 11/05/2016 REFERRING PHYSICIAN: Zachary Benitez MD HISTORY OF PRESENT ILLNESS: The patient is an 86-year-old woman who apparently fell early on the morning of her admission as she was attempting to retrieve some clothes from a closet at home. She l anded on the right side. Denied any loss of consciousness or other injuries, was unable to stand or weightbea r due to pain. Was taken by ambulance to the emergency room here at [facility] where x-ray reve aled her right intertrochanteric hip fracture. She denied any distal weakness or numbness. No prior hip frac tures. PHYSICAL EXAMINATION: Patient's right leg is slightly shortened and externally rotated. There is pa inful range of motion to the right hip today. She spontaneously moves her toes and ankle today. Sensation appeared to be intact. Good capillary filling noted of the digits as well. X-rays that were taken of the right hip shows some mild comminution to her right intertrochanteric hi p fracture. ASSESSMENT 1. Closed right intertrochanteric hip fracture. 2. Chronic renal insufficiency. 3. History of hypertension. PLAN: Patient has been evaluated by the Medical Service who feels she is clinically stable to geovanna saavedra with surgical stabilization of her hip fracture. I spoke with the patient and her son, who has power of a ttorney with regards to treatment options. They have agreed to proceed with surgical fixation of the hip fra cture. We will plan on a short Intertan nailing of the right hip later this morning. Risk and benefits of s arun were explained to the patient and her son. They appeared to understand the risks and wish to proceed with surgery as planned. Consent has been signed. Leg has been marked. TD: 11/06/2017 07:17
[2017-11-06 06:34] LABS: % IRON SATURATION 4 % (20-50); BUN - BLOOD UREA NITROGEN 38 mg/dL (6-20); CALCIUM 8.1 mg/dL (8.5-10.3); CARBON DIOXIDE - CO2 25 mmol/L (21-32); CHLORIDE 108 mmol/L (101-111); CREATININE 1.8 mg/dL (0.4-1.0); GFR - MDRD 27 (>89); GLUCOSE 124 mg/dL (70-100); IRON 8 ug/dL (28-170); SODIUM 140 mmol/L (135-145); TOTAL IRON BINDING CAPACITY 206 ug/dL (250-450); TRANSFERRIN 147 mg/dL (192-382)
[2017-11-06 07:10] LABS: ALBUMIN 3.1 g/dL (3.2-5.5); ALBUMIN/GLOBULIN RATIO 1.4 (1.0-2.2); ALKALINE PHOSPHATASE 68 IU/L (42-121); ALT ALANINE AMINOTRANSFERASE < 10 IU/L (10-60); AST ASPARTATE AMINOTRANSFERASE 18 IU/L (10-42); BILIRUBIN,TOTAL 0.2 mg/dL (0.2-1.0); TOTAL PROTEIN 5.3 g/dL (6.7-8.2)
--- NOTE | 2017-11-06 08:05 | PROVIDER PROGRESS NOTE ---
Subjective - Prog Note Date Prog Note Date: 11/06/17 Prog Note Time: 08:04 - Subjective Pt reports feeling: Improved Subjective: Quiana says she is feeling well this morning and offers no complaints. She denies SOB, chest pain, N/V or a new cough. Current Medications - Current Medications Current Medications: Active Medications Acetaminophen (Tylenol) 650 mg PO Q4HR PRN PRN Reason: Pain 1 to 4 Acetaminophen (Tylenol) 650 - 975 mg PO Q4HR PRN PRN Reason: PAIN Acetaminophen/Hydrocodone Bitart ([place] 5/325) 1 tab PO Q4HR PRN PRN Reason: Pain 5 to 7 Enoxaparin Sodium (Lovenox) 30 mg SUBQ DAILY ALYSSA Famotidine (Pepcid) 20 mg PO DAILY [facility] Acetaminophen (Ofirmev) 100 mls @ 400 mls/hr IV Q6HR PRN PRN Reason: PAIN Last Infusion: 11/06/17 02:47 Dose: Infused Sodium Chloride (Normal Saline 0.9%) 1,000 mls @ 100 mls/hr IV .Q10H [facility] Last Infusion: 11/06/17 03:31 Dose: 100 mls/hr Morphine Sulfate (Morphine) 2 mg IVP Q2HR PRN PRN Reason: PAIN Last Admin: 11/06/17 06:57 Dose: 2 mg Ondansetron HCl (Zofran Inj) 4 mg IVP Q6HR PRN PRN Reason: Nausea / Vomiting Last Admin: 11/05/17 19:41 Dose: 4 mg Polyethylene Glycol (Miralax) 17 gm PO DAILY [facility] Prochlorperazine Edisylate (Compazine Inj) 10 mg IVP Q6HR PRN PRN Reason: Nausea / Vomiting Sodium Chloride (Normal Saline Flush 0.9%) 10 ml IVP PRN PRN PRN Reason: NEEDED PER PROVIDER ORDERS Last Admin: 11/05/17 11:02 Dose: 10 ml Sodium Chloride (Normal Saline Flush 0.9%) 10 ml IVP Q8HR ALYSSA Last Admin: 11/06/17 05:56 Dose: Not Given Temazepam (Restoril) 15 mg PO QPM PRN PRN Reason: Insomnia Lisinopril [Zestril] 1 tab PO DAILY 07/18/13 Metoprolol Tartrate [Lopressor] 50 mg PO BID 07/18/13 Amlodipine Besylate 7.5 mg PO DAILY 01/02/16 Clopidogrel [Plavix] 75 mg PO DAILY 01/02/16 Hydrochlorothiazide 25 mg PO DAILY 01/02/16 lamoTRIgine [LaMICtal] 100 mg PO BID 01/02/16 Objective - Vital Signs/Intake & Output Reviewed Vital Signs: Yes Vital Signs: Vital Signs x48h Temp Pulse Resp BP Pulse Ox 11/06/17 05:00 36.7 C 87 18 121/43 L 96 11/06/17 00:22 36.8 C 93 18 111/79 96 Intake & Output: Intake & Output 11/03/17 11/04/17 11/05/17 11/06/17 23:59 23:59 23:59 23:59 Intake Total 2250 1170 Output Total 475 300 Balance 1775 870 - Objective General Appearance: positive: No acute distress, Alert Eyes Bilateral: positive: Normal inspection Eyes: OU Conjunctivae pale, OU Scleral icterus ENT: positive: ENT inspection nml, Pharynx nml, No signs of dehydration Neck: positive: Nml inspection, Thyroid nml, No JVD, Trachea midline Respiratory: positive: Chest non-tender, No respiratory distress, Other (few crackles bilateral lower lobes.) Cardiovascular: positive: Regular rate & rhythm, No murmur, No gallop Peripheral Pulses: 2+ Radial (R), 2+ Radial (L) Abdomen: positive: Non-tender, No organomegaly, Nml bowel sounds, No distention Back: positive: Nml inspection Skin: positive: No rash, Warm, Dry, Pallor Extremities: positive: Non-tender, Full ROM, Nml appearance Neurologic/Psychiatric: positive: Oriented x3, CN's nml (2-12), Weakness, Sensory loss, Depressed mood/affect Reflexes: Bicep (R): 2+, Bicep (L): 2+ - Lab Results Fish Bones: 11/06/17 05:31 11/06/17 05:31 Other Labs: Lab Results x24hrs 11/06/17 11/06/17 11/05/17 Range/Units 05:31 05:31 09:26 WBC 10.6 (4.8-10.8) x10^3/uL RBC 2.40 L (4.20-5.40) 10^6/uL Hgb 7.6 L (12.0-16.0) g/dL Hct 22.6 L (37.0-47.0) % MCV 94.3 (81.0-99.0) fL MCH 31.6 H (27.0-31.0) pg MCHC 33.5 (32.0-36.0) g/dL RDW 14.5 (12.0-15.0) % Plt Count 202 (130-450) 10^3/uL MPV 7.9 (7.9-10.8) fL Neut # 9.0 H (1.5-6.6) 10^3/uL Lymph # 0.7 L (1.5-3.5) 10^3/uL [place] # 0.8 (0.0-1.0) 10^3/uL Eos # 0.0 (0.0-0.7) 10^3/uL Baso # 0.0 (0.0-0.1) 10^3/uL Absolute Nucleated RBC 0.01 x10^3/uL Nucleated RBC % 0.1 /100WBC Sodium 140 (135-145) mmol/L Potassium 4.2 (3.5-5.0) mmol/L Chloride 108 (101-111) mmol/L Carbon Dioxide 25 (21-32) mmol/L Anion Gap 7.0 (6-13) BUN 38 H (6-20) mg/dL Creatinine 1.8 H (0.4-1.0) mg/dL Estimated GFR (MDRD) 27 L (>89) Glucose 124 H (70-100) mg/dL Calcium 8.1 L (8.5-10.3) mg/dL Iron 8 L (28-170) ug/dL TIBC 206 L (250-450) ug/dL % Saturation 4 L (20-50) % Transferrin 147 L (192-382) mg/dL Total Bilirubin 0.2 (0.2-1.0) mg/dL AST 18 (10-42) IU/L ALT < 10 L (10-60) IU/L Alkaline Phosphatase 68 (42-121) IU/L Total Protein 5.3 L (6.7-8.2) g/dL Albumin 3.1 L (3.2-5.5) g/dL Globulin 2.2 (2.1-4.2) g/dL Albumin/Globulin Ratio 1.4 (1.0-2.2) Urine Color YELLOW Urine Clarity CLEAR (CLEAR) Urine pH 6.0 (5.0-7.5) PH Ur Specific [place] 1.020 (1.002-1.030) Urine Protein NEGATIVE (NEGATIVE) mg/dL Urine Glucose (UA) NEGATIVE (NEGATIVE) mg/dL Urine Ketones NEGATIVE (NEGATIVE) mg/dL Urine Occult Blood TRACE-INTA (NEGATIVE) Urine Nitrite NEGATIVE (NEGATIVE) Urine Bilirubin NEGATIVE (NEGATIVE) Urine Urobilinogen 0.2 (NORMAL) (NORMAL) E.U./dL Ur Leukocyte Esterase NEGATIVE (NEGATIVE) Ur Microscopic Review NOT INDICATED Urine Culture Comments NOT INDICATED - Diagnostic Imaging Diagnostic Imaging Results: positive: Final report reviewed Assessment/Plan - Problem List (1) Intertrochanteric fracture of right femur Impression: Patient was found by EMS in her closet after a fall with injury to right hip. X -rays confirm fracture. Dr. Mancera performed surgery on 11/06/17, no complications. Blood counts have dropped, but likely from the fall rather than from surgical causes. Plan: PT therapy, but on hold until PRBCs are given and blood counts are greater than 8 and 25. Qualifiers: Encounter type: initial encounter Fracture type: closed Fracture alignment: displaced Qualified Code(s): S72.141A - Displaced intertrochanteric fracture of right femur, initial encounter for closed fracture (2) Fall Impression: Patient has a Life-line that is provided by this hospital. Patient has not had several falls, and none with injury prior to this event. I suspect UTI, dehydration was the primary cause of this fall. Urine studies are inconclusive. Plan: Fall precautions and avoid long-term narcotics. Qualifiers: Encounter type: initial encounter Qualified Code(s): W19.XXXA - Unspecified fall, initial encounter (3) Hypertension Impression: Patient has a prominent history of this and is on several agents that seems to be the right formula for her per her son, Osvaldo. She has seen a sales effectiveness manager and PCP to make adjustments. Plan: continue medical management. (4) Chronic constipation Impression: Patient suspected to have slow bowels due to antihypertensive medications. Plan: Prescribed extra bowel medications, especially post op. Senna resumed, and will add a suppository and an enema. (5) Iron deficiency anemia Impression: Iron studies were abnormal today, and reduced H/H since admission. This morning hemoglobin down to 7.6. Plan: Ferrous sulfate. PRBC's ordered by Dr. Mancera. We will continue to monitor CBC daily. 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 Plan: Resume plavix after surgery and give lovenox per ortho surgery. (7) Delirium due to known physiological condition Impression: Patient has shown signs of confusion and at one point pulled out her IV that was just finishing her PRBCs. Patient has been reaching for things in the air. Plan: Limit narcotics. IV tylenol for pain should be given first.
[2017-11-06] MEDS: SENNA 8.6 MG TABLET PO SCH (09:04)
[2017-11-06] MEDS: POLYETHYLENE GLYCOL 3350 17 GM PACKET PO SCH (09:04)
[2017-11-06] MEDS: FERROUS SULFATE 325 MG TABLET PO SCH ×2 (09:04→16:49)
[2017-11-06] MEDS: FAMOTIDINE 20 MG TABLET PO SCH (09:04)
[2017-11-06] MEDS: ENOXAPARIN 30 MG/0.3 ML SYRINGE SUBQ SCH (09:10)
--- NOTE | 2017-11-06 09:28 | OPERATIVE REPORT ---
DATE OF SERVICE: 11/05/2017 Physician: Joel Mancera MD DATE OF SURGERY: 11/05/2016 PREOPERATIVE DIAGNOSIS: Closed right intertrochanteric hip fracture. POSTOPERATIVE DIAGNOSIS: Closed right intertrochanteric hip fracture. NAME OF PROCEDURE: Closed reduction and short Intertan nailing of right hip fracture. SURGEON: Joel Mancera MD ANESTHESIA: General. DESCRIPTION OF PROCEDURE: The patient was taken to the operating room on the morning of the 2017 where she was placed under general anesthesia without any complications. She was then positione d supine onto the fracture table. Her left un-fractured extremity was then flexed and widely abducted and hel d in a well leg blevins. The fractured right lower extremity was then placed into longitudinal traction with the leg internally rotated about 15 degrees. Fluoroscopic views AP and lateral projection showed a good redu ction of our fracture and good visualization of the proximal femur and hip. We then prepped and draped the la teral aspect of her right hip in usual fashion for our procedure. Small oblique skin incision was made jus t proximal at tip of the greater trochanter. We then dissected to the tip of the greater trochanter. This is where we placed the tip of our threaded guidewire. Fluoroscopic view confirmed the location of the t ip at the tip of the greater trochanter. With power, we did advance this guide pin through the greater trochan ter and into the proximal femur just to the level of the lessor trochanter. A lateral view of our proximal fe mur showed the pin to be in the satisfactory position in the lateral projection as well. Using a soft ti ssue protector, we then proceeded to ream the proximal femur with a 60 mm channel reamer through our tissu e protector. This was advanced to the level of the lessor trochanter. We then removed our guide pin a nd the channel reamer from the bream proximal femur. We then placed a selected right short Intertan nail wi th the insertion rig down the prepared proximal femur. The implant was a 10 mm diameter x 18 cm length, 125 degree angled nail. Fluoroscopic views were then used to determine the length and depth of penetration of o ur nail down the proximal femur. Once this was in satisfactory position, we then proceeded to insert the obl ique guidewire through the oblique hole of the proximal end of our nail using the alignment guide and the appropriate drill sleeves. Fluoroscopic views showed that our guide pin was in the proper position i n both AP and lateral projection and a proper depth to within a few millimeters of subchondral bone in the femo ral head. Satisfied with this, we then proceeded to remove the pin guide from our sleeve and this was then fol lowed up with a cannulated reamer. We reamed over our nail to prepare the proximal femur up to within a few millimeters of subchondral bone of the femoral head. We then removed the cannulated reamer and then inserted our selected subtrochanteric hip lag screw, which measured 105 mm in length x 11 mm in diameter. Thi s was inserted with our insertion guide so that the tip of the nail was within a few millimeters of the sub chondral bone in AP and lateral projections. Satisfied with this, we then removed our guide pin and the inser tion apparatus for putting in the hip lag screw. Through a small skin incision and with the combined silv er and gold drill sleeves, we inserted this into the static hole in the alignment jig, advancing it through the small incision to the lateral femoral cortex of the proximal femur. We then used the 4 mm drill sleeve and advanced it through our drill sleeves until it penetrated both cortices of the proximal femoral shaft. We det ermined after the drill that we would use a 30 mm x 5 mm distal locking screw. This was attached on the inse rtion apparatus and this was then inserted through the gold sleeve after the silver sleeve had been removed . After we seated our screw, x-rays confirmed this was bicortical. We then obtained final x-rays AP and late ral projection of hip and the nail and the proximal end of the nail showing the fracture to be near anato mical position and a nice reduction. We then removed the alignment guide and insertion guide from the prox imal nail. We also locked the set screw in the proximal end of the nail tightening it with the hinged scr ew front loader residential driver and then backing off 90 degrees after we had tightened it completely. We then irrigated the wounds o ut thoroughly with saline. Then closed the wound with layers using varied simple stitch of 0 Vicryl to approximate the fascia casie incision, varied simple stitches of 2-0 Vicryl used to approximate subcut aneous tissues and then proximal 2 incisions. Finally, skin kay used to approximate the skin edges of a ll the wounds. A 20 mL of 0.5% Marcaine with epinephrine was then used to provide local anesthesia of our s urgical sites. Patient then had her wounds dressed. We then transferred off the fracture table onto the bed and taken to recovery room in satisfactory condition. ESTIMATED BLOOD LOSS: 75 mL. REPLACEMENT: 1000 mL crystalloid. INTRAOPERATIVE COMPLICATIONS: None. PLAN: Patient will be walker ambulating with physical therapy, weightbearing as tolerated in this ex tremity. TD: 11/06/2017 10:27
[2017-11-06] MEDS: HYDROcod/ACETAM 5/325 MG TABLET PO PRN (12:16)
--- NOTE | 2017-11-06 12:31 | PROVIDER PROGRESS NOTE ---
Subjective - Prog Note Date Prog Note Date: 11/06/17 Prog Note Time: 12:29 - Subjective Pt reports feeling: Improved (Intermittent pain in hip as expected. No distal weakness/numbness) Objective - Vital Signs/Intake & Output Vital Signs: Vital Signs x48h Temp Pulse Pulse Resp BP BP Pulse Ox 11/06/17 11:54 36.7 C 99 16 147/75 H 11/06/17 11:31 36.7 C 87 14 111/52 L 11/06/17 08:11 36.9 C 89 18 127/50 L 99 11/06/17 05:00 36.7 C 87 18 121/43 L 96 Intake & Output: Intake & Output 11/03/17 11/04/17 11/05/17 11/06/17 23:59 23:59 23:59 23:59 Intake Total 2250 1520 Output Total 475 300 Balance 1775 1220 - Lab Results Fish Bones: 11/06/17 05:31 11/06/17 05:31 Other Labs: Lab Results x24hrs 11/06/17 11/06/17 Range/Units 05:31 05:31 WBC 10.6 (4.8-10.8) x10^3/uL RBC 2.40 L (4.20-5.40) 10^6/uL Hgb 7.6 L (12.0-16.0) g/dL Hct 22.6 L (37.0-47.0) % MCV 94.3 (81.0-99.0) fL MCH 31.6 H (27.0-31.0) pg MCHC 33.5 (32.0-36.0) g/dL RDW 14.5 (12.0-15.0) % Plt Count 202 (130-450) 10^3/uL MPV 7.9 (7.9-10.8) fL Neut # 9.0 H (1.5-6.6) 10^3/uL Lymph # 0.7 L (1.5-3.5) 10^3/uL [place] # 0.8 (0.0-1.0) 10^3/uL Eos # 0.0 (0.0-0.7) 10^3/uL Baso # 0.0 (0.0-0.1) 10^3/uL Absolute Nucleated RBC 0.01 x10^3/uL Nucleated RBC % 0.1 /100WBC Sodium 140 (135-145) mmol/L Potassium 4.2 (3.5-5.0) mmol/L Chloride 108 (101-111) mmol/L Carbon Dioxide 25 (21-32) mmol/L Anion Gap 7.0 (6-13) BUN 38 H (6-20) mg/dL Creatinine 1.8 H (0.4-1.0) mg/dL Estimated GFR (MDRD) 27 L (>89) Glucose 124 H (70-100) mg/dL Calcium 8.1 L (8.5-10.3) mg/dL Iron 8 L (28-170) ug/dL TIBC 206 L (250-450) ug/dL % Saturation 4 L (20-50) % Transferrin 147 L (192-382) mg/dL Total Bilirubin 0.2 (0.2-1.0) mg/dL AST 18 (10-42) IU/L ALT < 10 L (10-60) IU/L Alkaline Phosphatase 68 (42-121) IU/L Total Protein 5.3 L (6.7-8.2) g/dL Albumin 3.1 L (3.2-5.5) g/dL Globulin 2.2 (2.1-4.2) g/dL Albumin/Globulin Ratio 1.4 (1.0-2.2) - Other Results/Comments Other Results/Comments: EXAM: Dressing intact. N/V ok distally. Mild pain with hip rotation. Assessment/Plan - Problem List (1) Intertrochanteric fracture of right femur Impression: - Satis post op PLAN: Mobilize as tolerated. To SNF in 1-2 days. Qualifiers: Encounter type: initial encounter Fracture type: closed Fracture alignment: displaced Qualified Code(s): S72.141A - Displaced intertrochanteric fracture of right femur, initial encounter for closed fracture
--- NOTE | 2017-11-06 15:25 | XRAY Report ---
EXAM: CHEST RADIOGRAPHY EXAM DATE: 11/06/2017 01:26 PM. CLINICAL HISTORY: Shortness of breath. COMPARISON: 02/08/2014. TECHNIQUE: 1 view. FINDINGS: Lungs/Pleura: There is a new linear bandlike density in the right midlung. There is new elevation of the medial left hemidiaphragm with a patchy left lower lobe density obscuring the contour of the diap hragm. Mediastinum: Heart size is normal. There is moderate aortic arch atherosclerosis. Other: There are posterior lateral right rib fractures which appear chronic but new since previous. IMPRESSION: 1. New left lower lobe airspace density with elevated left diaphragm. Differential including pneumoni a and basilar atelectasis. 2. New right midlung zone atelectasis or scar. [facility] Referring Provider Line: [phone] SITE ID: [id number]
[2017-11-06] MEDS: HYDROmorphone 1 MG/ML SYRINGE IVP PRN ×2 (16:22→20:14)
[2017-11-06] MEDS ORDERED: BISACODYL 10 MG SUPP PR SCH (17:49)
[2017-11-06] MEDS: PIPERACILLIN/TAZOBACTAM 3.375 GM in SODIUM CHLORIDE 0.9% MINIBAG 100 ML IV SCH (19:10)
[2017-11-06] MEDS ORDERED: HALOPERIDOL 5 MG/ML VIAL IVP ONE (21:39)
[2017-11-07] MEDS: PIPERACILLIN/TAZOBACTAM 3.375 GM in SODIUM CHLORIDE 0.9% MINIBAG 100 ML IV SCH ×4 (01:47→19:46)
[2017-11-07] MEDS: ACETAMINOPHEN 1,000 MG/100 ML 100 ML IV PRN (03:29)
[2017-11-07] MEDS: HYDROmorphone 1 MG/ML SYRINGE IVP PRN (05:07)
[2017-11-07] MEDS: SODIUM CHLORIDE FLUSH 0.9% 10 ML SYRINGE IVP SCH ×3 (05:08→21:06)
[2017-11-07] MEDS: SODIUM CHLORIDE 0.9% 1,000 ML IV SCH ×2 (05:08→17:28)
[2017-11-07 06:30] LABS: BASOPHILS % (AUTO) 0.2 %; HGB - HEMOGLOBIN 7.8 g/dL (12.0-16.0); LYMPHOCYTES # (AUTO) 0.4 10^3/uL (1.5-3.5); MEAN CORPUSCULAR HEMOGLOBIN 30.4 pg (27.0-31.0); MEAN CORPUSCULAR HGB CONC 32.6 g/dL (32.0-36.0); MEAN CORPUSCULAR VOLUME 93.2 fL (81.0-99.0); MEAN PLATELET VOLUME 8.2 fL (7.9-10.8); MONOCYTES # (AUTO) 0.8 10^3/uL (0.0-1.0); MONOCYTES % (AUTO) 5.5 %; NEUTROPHILS # (AUTO) 13.2 10^3/uL (1.5-6.6); NEUTROPHILS % (AUTO) 91.3 %; PLT - PLATELET COUNT 173 10^3/uL (130-450); RED BLOOD COUNT 2.56 10^6/uL (4.20-5.40); RED CELL DISTRIBUTION WIDTH 15.2 % (12.0-15.0); WHITE BLOOD COUNT 14.4 x10^3/uL (4.8-10.8)
[2017-11-07 06:38] LABS: ALBUMIN 2.6 g/dL (3.2-5.5); ALBUMIN/GLOBULIN RATIO 1.2 (1.0-2.2); ALKALINE PHOSPHATASE 61 IU/L (42-121); ALT ALANINE AMINOTRANSFERASE < 10 IU/L (10-60); AST ASPARTATE AMINOTRANSFERASE 18 IU/L (10-42); BILIRUBIN,TOTAL 0.6 mg/dL (0.2-1.0); BUN - BLOOD UREA NITROGEN 36 mg/dL (6-20); CALCIUM 7.9 mg/dL (8.5-10.3); CARBON DIOXIDE - CO2 22 mmol/L (21-32); CHLORIDE 113 mmol/L (101-111); CREATININE 1.6 mg/dL (0.4-1.0); GFR - MDRD 30 (>89); GLUCOSE 107 mg/dL (70-100); SODIUM 141 mmol/L (135-145); TOTAL PROTEIN 4.8 g/dL (6.7-8.2)
[2017-11-07] MEDS: FAMOTIDINE 20 MG TABLET PO SCH (09:24)
[2017-11-07] MEDS: DOCUSATE SODIUM 250 MG CAPSULE PO SCH (09:24)
[2017-11-07] MEDS: SENNA 8.6 MG TABLET PO SCH (09:24)
[2017-11-07] MEDS: FERROUS SULFATE 325 MG TABLET PO SCH ×2 (09:24→17:29)
[2017-11-07] MEDS: ENOXAPARIN 30 MG/0.3 ML SYRINGE SUBQ SCH (09:25)
[2017-11-07] MEDS: POLYETHYLENE GLYCOL 3350 17 GM PACKET PO SCH (09:25)
--- NOTE | 2017-11-07 10:06 | PROVIDER PROGRESS NOTE ---
Subjective - Prog Note Date Prog Note Date: 11/07/17 Prog Note Time: 10:04 - Subjective Pt reports feeling: No change Subjective: Quiana is much less confused today and she has had visitors for most of the day. She denies SOB, chest pain, N/V or a worsening cough. She had 3 weak attempts at her incentive spirometer. Current Medications - Current Medications Current Medications: Active Medications Acetaminophen (Tylenol) 650 mg PO Q4HR PRN PRN Reason: Pain 1 to 4 Acetaminophen (Tylenol) 650 - 975 mg PO Q4HR PRN PRN Reason: PAIN Acetaminophen/Hydrocodone Bitart ([place] 5/325) 1 tab PO Q4HR PRN PRN Reason: Pain 5 to 7 Last Admin: 11/06/17 12:16 Dose: 1 tab Docusate Sodium (Colace 250mg Capsule) 250 - 500 mg PO DAILY [facility] Last Admin: 11/07/17 09:24 Dose: 250 mg Enoxaparin Sodium (Lovenox) 30 mg SUBQ DAILY [facility] Last Admin: 11/07/17 09:25 Dose: 30 mg Famotidine (Pepcid) 20 mg PO DAILY [facility] Last Admin: 11/07/17 09:24 Dose: 20 mg Ferrous Sulfate (Feosol) 325 mg PO BIDWM [facility] Last Admin: 11/07/17 09:24 Dose: 325 mg Hydromorphone HCl (Dilaudid Inj Syringe) 0.5 mg IVP Q4H PRN PRN Reason: PAIN Last Admin: 11/07/17 05:07 Dose: 0.5 mg Acetaminophen (Ofirmev) 100 mls @ 400 mls/hr IV Q6HR PRN PRN Reason: PAIN Last Infusion: 11/07/17 04:13 Dose: Infused Sodium Chloride (Normal Saline 0.9%) 1,000 mls @ 100 mls/hr IV .Q10H [facility] Last Admin: 11/07/17 05:08 Dose: 100 mls/hr Piperacillin Sod/Tazobactam (Sod 3.375 gm/ Sodium Chloride) 100 mls @ 200 mls/ hr IV Q6H [facility] Last Infusion: 11/07/17 06:50 Dose: Infused Ondansetron HCl (Zofran Inj) 4 mg IVP Q6HR PRN PRN Reason: Nausea / Vomiting Last Admin: 11/05/17 19:41 Dose: 4 mg Polyethylene Glycol (Miralax) 17 gm PO DAILY [facility] Last Admin: 11/07/17 09:25 Dose: Not Given Prochlorperazine Edisylate (Compazine Inj) 10 mg IVP Q6HR PRN PRN Reason: Nausea / Vomiting Senna (Senokot) 8.6 mg PO DAILY [facility] Last Admin: 11/07/17 09:24 Dose: 8.6 mg Sodium Chloride (Normal Saline Flush 0.9%) 10 ml IVP PRN PRN PRN Reason: NEEDED PER PROVIDER ORDERS Last Admin: 11/05/17 11:02 Dose: 10 ml Sodium Chloride (Normal Saline Flush 0.9%) 10 ml IVP Q8HR [facility] Last Admin: 11/07/17 05:08 Dose: Not Given Temazepam (Restoril) 15 mg PO QPM PRN PRN Reason: Insomnia Lisinopril [Zestril] 1 tab PO DAILY 07/18/13 Metoprolol Tartrate [Lopressor] 50 mg PO BID 07/18/13 Amlodipine Besylate 7.5 mg PO DAILY 01/02/16 Clopidogrel [Plavix] 75 mg PO DAILY 01/02/16 Hydrochlorothiazide 25 mg PO DAILY 01/02/16 lamoTRIgine [LaMICtal] 100 mg PO BID 01/02/16 Objective - Vital Signs/Intake & Output Reviewed Vital Signs: Yes Vital Signs: Vital Signs x48h Temp Pulse Resp BP Pulse Ox 11/07/17 07:47 36.7 C 90 16 150/61 H 95 Intake & Output: Intake & Output 11/04/17 11/05/17 11/06/17 11/07/17 23:59 23:59 23:59 23:59 Intake Total 2250 3471 1394.667 Output Total 475 750 375 Balance 1775 2721 1019.667 - Objective General Appearance: positive: No acute distress, Alert Eyes Bilateral: positive: Normal inspection Eyes: OU Conjunctivae pale, OU Scleral icterus ENT: positive: ENT inspection nml, Pharynx nml, Dry mucous membranes Neck: positive: Nml inspection, Thyroid nml, No JVD, Trachea midline Respiratory: positive: Chest non-tender, No respiratory distress, Wheezes, Rales (Left base) Cardiovascular: positive: Regular rate & rhythm, No gallop, Systolic murmur, Decreased pulse(s) Peripheral Pulses: 2+ Radial (R), 2+ Radial (L) Abdomen: positive: Non-tender, No organomegaly, Nml bowel sounds, No distention Back: positive: Nml inspection Skin: positive: No rash, Warm, Dry, Pallor Extremities: positive: Pedal edema, Joint swelling, Other (post op right hip fracture.) Neurologic/Psychiatric: positive: Disoriented to time, Weakness, Sensory loss, Depressed mood/affect Reflexes: Bicep (R): 3+, Bicep (L): 3+ - Lab Results Fish Bones: 11/07/17 06:17 11/07/17 06:17 Other Labs: Lab Results x24hrs 11/07/17 11/07/17 11/07/17 Range/Units 06:17 06:17 06:17 WBC 14.4 H (4.8-10.8) x10^3/uL RBC 2.56 L (4.20-5.40) 10^6/uL Hgb 7.8 L (12.0-16.0) g/dL Hct 23.8 L (37.0-47.0) % MCV 93.2 (81.0-99.0) fL MCH 30.4 (27.0-31.0) pg MCHC 32.6 (32.0-36.0) g/dL RDW 15.2 H (12.0-15.0) % Plt Count 173 (130-450) 10^3/uL MPV 8.2 (7.9-10.8) fL Neut # 13.2 H (1.5-6.6) 10^3/uL Lymph # 0.4 L (1.5-3.5) 10^3/uL [place] # 0.8 (0.0-1.0) 10^3/uL Eos # 0.0 (0.0-0.7) 10^3/uL Baso # 0.0 (0.0-0.1) 10^3/uL Absolute Nucleated RBC 0.00 x10^3/uL Nucleated RBC % 0.0 /100WBC Sodium 141 (135-145) mmol/L Potassium 3.8 (3.5-5.0) mmol/L Chloride 113 H (101-111) mmol/L Carbon Dioxide 22 (21-32) mmol/L Anion Gap 6.0 (6-13) BUN 36 H (6-20) mg/dL Creatinine 1.6 H (0.4-1.0) mg/dL Estimated GFR (MDRD) 30 L (>89) Glucose 107 H (70-100) mg/dL Lactic Acid 0.6 (0.5-2.2) mmol/L Calcium 7.9 L (8.5-10.3) mg/dL Total Bilirubin 0.6 (0.2-1.0) mg/dL AST 18 (10-42) IU/L ALT < 10 L (10-60) IU/L Alkaline Phosphatase 61 (42-121) IU/L Total Protein 4.8 L (6.7-8.2) g/dL Albumin 2.6 L (3.2-5.5) g/dL Globulin 2.2 (2.1-4.2) g/dL Albumin/Globulin Ratio 1.2 (1.0-2.2) - Diagnostic Imaging Diagnostic Imaging Results: positive: Final report reviewed Assessment/Plan - Problem List (1) Intertrochanteric fracture of right femur Impression: Patient was found by EMS in her closet after a fall with injury to right hip. X -rays confirm fracture. Dr. Mancera performed surgery on 11/06/17, no complications. Blood counts have dropped, but likely from the fall rather than from surgical causes. Plan: PT therapy, but on hold until PRBCs are given and blood counts are greater than 8 and 25. Will replace with one PRBCs this evening. Qualifiers: Encounter type: initial encounter Fracture type: closed Fracture alignment: displaced Qualified Code(s): S72.141A - Displaced intertrochanteric fracture of right femur, initial encounter for closed fracture (2) Fall Impression: Patient has a Life-line that is provided by this hospital. Patient has not had several falls, and none with injury prior to this event. I suspect UTI, dehydration was the primary cause of this fall. Urine studies are inconclusive. Plan: Fall precautions and avoid long-term narcotics. Qualifiers: Encounter type: initial encounter Qualified Code(s): W19.XXXA - Unspecified fall, initial encounter (3) Hypertension Impression: Patient has a prominent history of this and is on several agents that seems to be the right formula for her per her son, Osvaldo. She has seen a smasher and PCP to make adjustments. Plan: continue medical management. (4) Chronic constipation Impression: Patient suspected to have slow bowels due to antihypertensive medications. Plan: Prescribed extra bowel medications, especially post op. Senna resumed, and will add a suppository and an enema. (5) Iron deficiency anemia Impression: Post transfusion lab results are hemoglobin increased from 7.6 to 7.8. Physical therapy has agreed to dangle patient, but waiting for hemoglobin to reach 8. Plan: Continue ferrous sulfate PO BID that was started yesterday. 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 Plan: Resume plavix after surgery and give lovenox per ortho surgery. (7) Delirium due to known physiological condition Impression: Patient has shown signs of confusion and at one point pulled out her IV that was just finishing her PRBCs. Patient has been reaching for things in the air. This is improved today and the morphine was changed to IV dilaudid. Plan: Limit narcotics. IV tylenol for pain should be given first.
[2017-11-07] MEDS ORDERED: CARBOXYMETHYLCELLULOSE OPHTH DROPS EACHEYE PRN (13:32)
[2017-11-07] MEDS: ACETAMINOPHEN 325 MG TABLET PO PRN (14:35)
--- NOTE | 2017-11-07 16:37 | PROVIDER PROGRESS NOTE ---
Subjective - Prog Note Date Prog Note Date: 11/07/17 Prog Note Time: 16:35 - Subjective Pt reports feeling: Improved (Mild hip pain. More oriented today) Objective - Vital Signs/Intake & Output Vital Signs: Vital Signs x48h Temp Pulse Pulse Pulse Resp BP BP 11/07/17 15:51 37.1 C 85 18 122/58 L 11/07/17 11:20 90 88 132/49 H BP Pulse Ox 11/07/17 15:51 96 11/07/17 11:20 140/52 H Intake & Output: Intake & Output 11/04/17 11/05/17 11/06/17 11/07/17 23:59 23:59 23:59 23:59 Intake Total 2250 3471 2499.667 Output Total 475 750 725 Balance 1775 2721 1774.667 - Lab Results Fish Bones: 11/07/17 06:17 11/07/17 06:17 Other Labs: Lab Results x24hrs 11/07/17 11/07/17 11/07/17 Range/Units 06:17 06:17 06:17 WBC 14.4 H (4.8-10.8) x10^3/uL RBC 2.56 L (4.20-5.40) 10^6/uL Hgb 7.8 L (12.0-16.0) g/dL Hct 23.8 L (37.0-47.0) % MCV 93.2 (81.0-99.0) fL MCH 30.4 (27.0-31.0) pg MCHC 32.6 (32.0-36.0) g/dL RDW 15.2 H (12.0-15.0) % Plt Count 173 (130-450) 10^3/uL MPV 8.2 (7.9-10.8) fL Neut # 13.2 H (1.5-6.6) 10^3/uL Lymph # 0.4 L (1.5-3.5) 10^3/uL Miller # 0.8 (0.0-1.0) 10^3/uL Eos # 0.0 (0.0-0.7) 10^3/uL Baso # 0.0 (0.0-0.1) 10^3/uL Absolute Nucleated RBC 0.00 x10^3/uL Nucleated RBC % 0.0 /100WBC Sodium 141 (135-145) mmol/L Potassium 3.8 (3.5-5.0) mmol/L Chloride 113 H (101-111) mmol/L Carbon Dioxide 22 (21-32) mmol/L Anion Gap 6.0 (6-13) BUN 36 H (6-20) mg/dL Creatinine 1.6 H (0.4-1.0) mg/dL Estimated GFR (MDRD) 30 L (>89) Glucose 107 H (70-100) mg/dL Lactic Acid 0.6 (0.5-2.2) mmol/L Calcium 7.9 L (8.5-10.3) mg/dL Total Bilirubin 0.6 (0.2-1.0) mg/dL AST 18 (10-42) IU/L ALT < 10 L (10-60) IU/L Alkaline Phosphatase 61 (42-121) IU/L Total Protein 4.8 L (6.7-8.2) g/dL Albumin 2.6 L (3.2-5.5) g/dL Globulin 2.2 (2.1-4.2) g/dL Albumin/Globulin Ratio 1.2 (1.0-2.2) - Other Results/Comments Other Results/Comments: EXAM: Dressing intact. No pain with hip rotation. Up with PT earlier Assessment/Plan - Problem List (1) Intertrochanteric fracture of right femur Impression: Katie post op PLAN: Will transfuse anouther unit of PRBC's tonight. Can go to SNF tomorrow for post op rehab. Continue with PT - walker ambulate - WBAT on right. Follow up in 2 weeks in clinic. Qualifiers: Encounter type: initial encounter Fracture type: closed Fracture alignment: displaced Qualified Code(s): S72.141A - Displaced intertrochanteric fracture of right femur, initial encounter for closed fracture
[2017-11-07] MEDS ORDERED: SODIUM CHLORIDE 0.9% 250 ML IV ONE (19:33)
[2017-11-08] MEDS: PIPERACILLIN/TAZOBACTAM 3.375 GM in SODIUM CHLORIDE 0.9% MINIBAG 100 ML IV SCH ×4 (01:09→21:07)
[2017-11-08 05:57] LABS: BASOPHILS % (AUTO) 0.2 %; EOSINOPHILS % (AUTO) 0.2 %; HGB - HEMOGLOBIN 9.4 g/dL (12.0-16.0); LYMPHOCYTES # (AUTO) 0.5 10^3/uL (1.5-3.5); LYMPHOCYTES % (AUTO) 5.3 %; MEAN CORPUSCULAR HEMOGLOBIN 30.9 pg (27.0-31.0); MEAN CORPUSCULAR HGB CONC 33.5 g/dL (32.0-36.0); MEAN CORPUSCULAR VOLUME 92.1 fL (81.0-99.0); MEAN PLATELET VOLUME 8.2 fL (7.9-10.8); MONOCYTES # (AUTO) 0.7 10^3/uL (0.0-1.0); MONOCYTES % (AUTO) 6.8 %; NEUTROPHILS # (AUTO) 8.7 10^3/uL (1.5-6.6); NEUTROPHILS % (AUTO) 87.5 %; PLT - PLATELET COUNT 183 10^3/uL (130-450); RED BLOOD COUNT 3.04 10^6/uL (4.20-5.40); RED CELL DISTRIBUTION WIDTH 15.6 % (12.0-15.0)
[2017-11-08 06:15] LABS: ALBUMIN 2.7 g/dL (3.2-5.5); ALKALINE PHOSPHATASE 63 IU/L (42-121); ALT ALANINE AMINOTRANSFERASE < 10 IU/L (10-60); AST ASPARTATE AMINOTRANSFERASE 20 IU/L (10-42); BILIRUBIN,TOTAL 0.5 mg/dL (0.2-1.0); BUN - BLOOD UREA NITROGEN 29 mg/dL (6-20); CALCIUM 8.4 mg/dL (8.5-10.3); CARBON DIOXIDE - CO2 20 mmol/L (21-32); CHLORIDE 110 mmol/L (101-111); CREATININE 1.4 mg/dL (0.4-1.0); GFR - MDRD 35 (>89); GLUCOSE 99 mg/dL (70-100); SODIUM 141 mmol/L (135-145); TOTAL PROTEIN 5.4 g/dL (6.7-8.2)
[2017-11-08] MEDS: SODIUM CHLORIDE FLUSH 0.9% 10 ML SYRINGE IVP SCH ×3 (06:39→17:26)
--- NOTE | 2017-11-08 07:42 | PROVIDER PROGRESS NOTE ---
Subjective - Prog Note Date Prog Note Date: 11/08/17 Prog Note Time: 07:40 - Subjective Pt reports feeling: Improved Objective - Vital Signs/Intake & Output Vital Signs: Vital Signs x48h Temp Pulse Resp BP 11/07/17 23:44 36.9 C 93 18 168/75 H Intake & Output: Intake & Output 11/05/17 11/06/17 11/07/17 11/08/17 23:59 23:59 23:59 23:59 Intake Total 2250 3471 3445.000 1050 Output Total 475 750 975 650 Balance 1775 2721 2470.000 400 - Lab Results Fish Bones: 11/08/17 05:35 11/08/17 05:35 Other Labs: Lab Results x24hrs 11/08/17 11/08/17 Range/Units 05:35 05:35 WBC 10.0 (4.8-10.8) x10^3/uL RBC 3.04 L (4.20-5.40) 10^6/uL Hgb 9.4 L (12.0-16.0) g/dL Hct 28.0 L (37.0-47.0) % MCV 92.1 (81.0-99.0) fL MCH 30.9 (27.0-31.0) pg MCHC 33.5 (32.0-36.0) g/dL RDW 15.6 H (12.0-15.0) % Plt Count 183 (130-450) 10^3/uL MPV 8.2 (7.9-10.8) fL Neut # 8.7 H (1.5-6.6) 10^3/uL Lymph # 0.5 L (1.5-3.5) 10^3/uL Wilkes # 0.7 (0.0-1.0) 10^3/uL Eos # 0.0 (0.0-0.7) 10^3/uL Baso # 0.0 (0.0-0.1) 10^3/uL Absolute Nucleated RBC 0.00 x10^3/uL Nucleated RBC % 0.0 /100WBC Sodium 141 (135-145) mmol/L Potassium 3.3 L (3.5-5.0) mmol/L Chloride 110 (101-111) mmol/L Carbon Dioxide 20 L (21-32) mmol/L Anion Gap 11.0 (6-13) BUN 29 H (6-20) mg/dL Creatinine 1.4 H (0.4-1.0) mg/dL Estimated GFR (MDRD) 35 L (>89) Glucose 99 (70-100) mg/dL Calcium 8.4 L (8.5-10.3) mg/dL Total Bilirubin 0.5 (0.2-1.0) mg/dL AST 20 (10-42) IU/L ALT < 10 L (10-60) IU/L Alkaline Phosphatase 63 (42-121) IU/L Total Protein 5.4 L (6.7-8.2) g/dL Albumin 2.7 L (3.2-5.5) g/dL Globulin 2.7 (2.1-4.2) g/dL Albumin/Globulin Ratio 1.0 (1.0-2.2) - Other Results/Comments Other Results/Comments: EXAM: Dressing intact. Moving toes well. Mild hip pain with rotation Assessment/Plan - Problem List (1) Intertrochanteric fracture of right femur Impression: -Satis post op PLAN: To SNF. Orthopedic recommendations per prior note. Qualifiers: Encounter type: initial encounter Fracture type: closed Fracture alignment: displaced Qualified Code(s): S72.141A - Displaced intertrochanteric fracture of right femur, initial encounter for closed fracture
[2017-11-08] MEDS ORDERED: POTASSIUM CHLORIDE 20 MEQ TABLET PO ONE (08:07)
[2017-11-08] MEDS: SODIUM CHLORIDE 0.9% 1,000 ML IV SCH ×3 (10:13→22:21)
[2017-11-08] MEDS: DOCUSATE SODIUM 250 MG CAPSULE PO SCH (10:15)
[2017-11-08] MEDS: FERROUS SULFATE 325 MG TABLET PO SCH ×2 (10:15→17:26)
[2017-11-08] MEDS: FAMOTIDINE 20 MG TABLET PO SCH (10:15)
[2017-11-08] MEDS: ENOXAPARIN 30 MG/0.3 ML SYRINGE SUBQ SCH (10:15)
[2017-11-08] MEDS: POLYETHYLENE GLYCOL 3350 17 GM PACKET PO SCH (10:15)
[2017-11-08] MEDS: SENNA 8.6 MG TABLET PO SCH (10:16)
[2017-11-08] MEDS: ACETAMINOPHEN 325 MG TABLET PO PRN (12:09)
[2017-11-08] MEDS: amLODIPine 5 MG TABLET PO SCH (13:34)
[2017-11-08] MEDS: METOPROLOL TARTRATE 50 MG TABLET PO SCH ×2 (13:34→21:15)
[2017-11-08] MEDS: lamoTRIgine 100 MG TABLET PO SCH ×2 (13:34→21:15)
[2017-11-08] MEDS: hydroCHLOROthiazide 25 MG TABLET PO SCH (13:34)
--- NOTE | 2017-11-08 15:09 | PROVIDER PROGRESS NOTE ---
Subjective - Prog Note Date Prog Note Date: 11/08/17 - Subjective Pt reports feeling: Improved Subjective: pt state she feel fine, no chest pain, fever, cough, shortness of breathing reported Current Medications - Current Medications Current Medications: Active Medications Acetaminophen (Tylenol) 650 mg PO Q4HR PRN PRN Reason: Pain 1 to 4 Last Admin: 11/08/17 12:09 Dose: 650 mg Acetaminophen (Tylenol) 650 - 975 mg PO Q4HR PRN PRN Reason: PAIN Acetaminophen/Hydrocodone Bitart ([place] 5/325) 1 tab PO Q4HR PRN PRN Reason: Pain 5 to 7 Last Admin: 11/06/17 12:16 Dose: 1 tab Amlodipine Besylate (Norvasc) 10 mg PO DAILY [facility] Last Admin: 11/08/17 13:34 Dose: 10 mg Carboxymethylcellulose (Refresh 1% Ophth Drops) 1 drops EACHEYE Q4HR PRN PRN Reason: Dry Eye Clopidogrel Bisulfate (Plavix) 75 mg PO DAILY [facility] Docusate Sodium (Colace 250mg Capsule) 250 - 500 mg PO DAILY [facility] Last Admin: 11/08/17 10:15 Dose: 250 mg Enoxaparin Sodium (Lovenox) 30 mg SUBQ DAILY [facility] Last Admin: 11/08/17 10:15 Dose: 30 mg Famotidine (Pepcid) 20 mg PO DAILY [facility] Last Admin: 11/08/17 10:15 Dose: 20 mg Ferrous Sulfate (Feosol) 325 mg PO BIDWM [facility] Last Admin: 11/08/17 10:15 Dose: 325 mg Hydrochlorothiazide (Hydrodiuril) 25 mg PO DAILY [facility] Last Admin: 11/08/17 13:34 Dose: 25 mg Hydromorphone HCl (Dilaudid Inj Syringe) 0.5 mg IVP Q4H PRN PRN Reason: PAIN Last Admin: 11/07/17 05:07 Dose: 0.5 mg Acetaminophen (Ofirmev) 100 mls @ 400 mls/hr IV Q6HR PRN PRN Reason: PAIN Last Infusion: 11/07/17 04:13 Dose: Infused Sodium Chloride (Normal Saline 0.9%) 1,000 mls @ 100 mls/hr IV .Q10H [facility] Last Admin: 11/08/17 12:13 Dose: Not Given Piperacillin Sod/Tazobactam (Sod 3.375 gm/ Sodium Chloride) 100 mls @ 200 mls/ hr IV Q6H [facility] Last Infusion: 11/08/17 14:08 Dose: Infused Lamotrigine (Lamictal) 100 mg PO BID [facility] Last Admin: 11/08/17 13:34 Dose: 100 mg Metoprolol Tartrate (Lopressor) 50 mg PO BID [facility] Last Admin: 11/08/17 13:34 Dose: 50 mg Ondansetron HCl (Zofran Inj) 4 mg IVP Q6HR PRN PRN Reason: Nausea / Vomiting Last Admin: 11/05/17 19:41 Dose: 4 mg Polyethylene Glycol (Miralax) 17 gm PO DAILY [facility] Last Admin: 11/08/17 10:15 Dose: 17 gm Prochlorperazine Edisylate (Compazine Inj) 10 mg IVP Q6HR PRN PRN Reason: Nausea / Vomiting Senna (Senokot) 8.6 mg PO DAILY [facility] Last Admin: 11/08/17 10:16 Dose: 8.6 mg Sodium Chloride (Normal Saline Flush 0.9%) 10 ml IVP PRN PRN PRN Reason: NEEDED PER PROVIDER ORDERS Last Admin: 11/05/17 11:02 Dose: 10 ml Sodium Chloride (Normal Saline Flush 0.9%) 10 ml IVP Q8HR [facility] Last Admin: 11/08/17 13:40 Dose: Not Given Temazepam (Restoril) 15 mg PO QPM PRN PRN Reason: Insomnia Lisinopril [Zestril] 40 mg PO DAILY 07/18/13 Metoprolol Tartrate [Lopressor] 50 mg PO BID 07/18/13 Clopidogrel [Plavix] 75 mg PO DAILY 01/02/16 Hydrochlorothiazide 25 mg PO DAILY 01/02/16 lamoTRIgine [LaMICtal] 100 mg PO BID 01/02/16 Amlodipine Besylate [Norvasc] 10 mg PO DAILY 11/08/17 Objective - Vital Signs/Intake & Output Reviewed Vital Signs: Yes Vital Signs: Vital Signs x48h Temp Pulse Pulse Pulse Resp BP BP 11/08/17 13:34 162/70 H 11/08/17 12:15 83 18 11/08/17 12:02 90 88 11/08/17 07:39 36.8 C 96 16 172/93 H BP BP BP Pulse Ox 11/08/17 13:34 11/08/17 12:15 183/75 H 97 11/08/17 12:02 132/49 H 140/52 H 11/08/17 07:39 96 Intake & Output: Intake & Output 11/05/17 11/06/17 11/07/17 11/08/17 23:59 23:59 23:59 23:59 Intake Total 2250 3471 3445.000 1620 Output Total 475 750 975 650 Balance 1775 2721 2470.000 970 - Objective General Appearance: positive: No acute distress, Alert. negative: Lethargic Eyes Bilateral: positive: Normal inspection, PERRL, No lid inflammation, Conjunctivae nml ENT: positive: ENT inspection nml, Pharynx nml, No signs of dehydration. negative: Purulent nasal drainage, Pharyngeal erythema, Oral lesions Neck: positive: Nml inspection, Thyroid nml, No JVD, Trachea midline. negative : Thyromegaly, Lymphadenopathy (R), Lymphadenopathy (L) Respiratory: positive: Chest non-tender, No respiratory distress. negative: Wheezes, Rales, Rhonchi Cardiovascular: positive: Regular rate & rhythm, No murmur, No gallop. negative : Irregularly irregular, Extrasystoles, Tachycardia, Bradycardia, Systolic murmur, Diastolic murmur Peripheral Pulses: 2+ Radial (R), 2+ Radial (L), 2+ Dorsalis pedis (R), 2+ Dorsalis pedis (L) Abdomen: positive: Non-tender, No organomegaly, Nml bowel sounds, No distention. negative: Tenderness, Guarding, Rebound Back: positive: Nml inspection. negative: CVA tenderness (R), CVA tenderness (L ) Skin: positive: Color nml, No rash, Warm, Dry. negative: Cyanosis, Diaphoresis , Pallor Extremities: positive: Non-tender, Nml appearance. negative: Calf tenderness, Joint swelling, Yoni's sign/cords Neurologic/Psychiatric: positive: Sensation nml, Mood/affect nml. negative: Sensory loss, Facial droop, Slurred/abnml speech, Depressed mood/affect - Lab Results Fish Bones: 11/08/17 05:35 11/08/17 05:35 Other Labs: Lab Results x24hrs 11/08/17 11/08/17 Range/Units 05:35 05:35 WBC 10.0 (4.8-10.8) x10^3/uL RBC 3.04 L (4.20-5.40) 10^6/uL Hgb 9.4 L (12.0-16.0) g/dL Hct 28.0 L (37.0-47.0) % MCV 92.1 (81.0-99.0) fL MCH 30.9 (27.0-31.0) pg MCHC 33.5 (32.0-36.0) g/dL RDW 15.6 H (12.0-15.0) % Plt Count 183 (130-450) 10^3/uL MPV 8.2 (7.9-10.8) fL Neut # 8.7 H (1.5-6.6) 10^3/uL Lymph # 0.5 L (1.5-3.5) 10^3/uL Bath # 0.7 (0.0-1.0) 10^3/uL Eos # 0.0 (0.0-0.7) 10^3/uL Baso # 0.0 (0.0-0.1) 10^3/uL Absolute Nucleated RBC 0.00 x10^3/uL Nucleated RBC % 0.0 /100WBC Sodium 141 (135-145) mmol/L Potassium 3.3 L (3.5-5.0) mmol/L Chloride 110 (101-111) mmol/L Carbon Dioxide 20 L (21-32) mmol/L Anion Gap 11.0 (6-13) BUN 29 H (6-20) mg/dL Creatinine 1.4 H (0.4-1.0) mg/dL Estimated GFR (MDRD) 35 L (>89) Glucose 99 (70-100) mg/dL Calcium 8.4 L (8.5-10.3) mg/dL Total Bilirubin 0.5 (0.2-1.0) mg/dL AST 20 (10-42) IU/L ALT < 10 L (10-60) IU/L Alkaline Phosphatase 63 (42-121) IU/L Total Protein 5.4 L (6.7-8.2) g/dL Albumin 2.7 L (3.2-5.5) g/dL Globulin 2.7 (2.1-4.2) g/dL Albumin/Globulin Ratio 1.0 (1.0-2.2) Assessment/Plan - Problem List (1) Intertrochanteric fracture of right femur Impression: (1) Intertrochanteric fracture of right femur Impression: will continue PT/OT continue pain control plan to be discharged to SNF, follow up orthopedic recommendation. Patient was found by EMS in her closet after a fall with injury to right hip. X -rays confirm fracture. Dr. Mancera performed surgery on 11/06/17, no complications. Blood counts have dropped, but likely from the fall rather than from surgical causes. Plan: PT therapy, but on hold until PRBCs are given and blood counts are greater than 8 and 25. Will replace with one PRBCs this evening. (2) Fall Impression: Patient has a Life-line that is provided by this hospital. Patient has not had several falls, and none with injury prior to this event. I suspect UTI, dehydration was the primary cause of this fall. Urine studies are inconclusive. Plan: Fall precautions and avoid long-term narcotics. (3) Hypertension Impression: pt has elevated BP, reconciliate home BP meds Cloninide PRN Patient has a prominent history of this and is on several agents that seems to be the right formula for her per her son, Osvaldo. She has seen a pool table mechanic and PCP to make adjustments. Plan: continue medical management. (4) Chronic constipation Impression: Patient suspected to have slow bowels due to antihypertensive medications. Plan: Prescribed extra bowel medications, especially post op. Senna resumed, and will add a suppository and an enema. (5) Iron deficiency anemia Impression: transfusion of blood, now HGB 9.4 continue lab monitor Post transfusion lab results are hemoglobin increased from 7.6 to 7.8. Physical therapy has agreed to dangle patient, but waiting for hemoglobin to reach 8. Plan: Continue ferrous sulfate PO BID that was started yesterday. 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 Plan: Resume plavix after surgery and give lovenox per ortho surgery. (7) Delirium due to known physiological condition Impression: pt is more oriented continue neuro check Patient has shown signs of confusion and at one point pulled out her IV that was just finishing her PRBCs. Patient has been reaching for things in the air. This is improved today and the morphine was changed to IV dilaudid. Plan: Limit narcotics. IV tylenol for pain should be given first. (8) pneumonia pt has low SO2 and with O2 supplement CXR reveals possible pneumonia with elevated WBC continue Zosyn continue vital, and lab monitor Qualifiers: Encounter type: initial encounter Fracture type: closed Fracture alignment: displaced Qualified Code(s): S72.141A - Displaced intertrochanteric fracture of right femur, initial encounter for closed fracture
[2017-11-08] MEDS ORDERED: cloNIDine 0.1 MG TABLET PO PRN (15:21)
[2017-11-08] MEDS: ACETAMINOPHEN 1,000 MG/100 ML 100 ML IV PRN (17:26)
[2017-11-09] MEDS: PIPERACILLIN/TAZOBACTAM 3.375 GM in SODIUM CHLORIDE 0.9% MINIBAG 100 ML IV SCH ×4 (02:13→20:14)
[2017-11-09] MEDS: SODIUM CHLORIDE FLUSH 0.9% 10 ML SYRINGE IVP SCH ×3 (04:50→20:15)
[2017-11-09 05:50] LABS: BASOPHILS % (AUTO) 0.1 %; EOSINOPHILS % (AUTO) 0.2 %; HGB - HEMOGLOBIN 9.9 g/dL (12.0-16.0); LYMPHOCYTES # (AUTO) 0.4 10^3/uL (1.5-3.5); LYMPHOCYTES % (AUTO) 4.8 %; MEAN CORPUSCULAR HEMOGLOBIN 31.1 pg (27.0-31.0); MEAN CORPUSCULAR HGB CONC 33.9 g/dL (32.0-36.0); MEAN CORPUSCULAR VOLUME 91.8 fL (81.0-99.0); MEAN PLATELET VOLUME 8.3 fL (7.9-10.8); MONOCYTES # (AUTO) 0.6 10^3/uL (0.0-1.0); MONOCYTES % (AUTO) 6.1 %; NEUTROPHILS # (AUTO) 8.1 10^3/uL (1.5-6.6); NEUTROPHILS % (AUTO) 88.8 %; PLT - PLATELET COUNT 219 10^3/uL (130-450); RED BLOOD COUNT 3.18 10^6/uL (4.20-5.40); WHITE BLOOD COUNT 9.1 x10^3/uL (4.8-10.8)
[2017-11-09 06:04] LABS: ALBUMIN 2.9 g/dL (3.2-5.5); ALBUMIN/GLOBULIN RATIO 1.1 (1.0-2.2); ALKALINE PHOSPHATASE 67 IU/L (42-121); ALT ALANINE AMINOTRANSFERASE < 10 IU/L (10-60); AST ASPARTATE AMINOTRANSFERASE 21 IU/L (10-42); BILIRUBIN,TOTAL 0.9 mg/dL (0.2-1.0); BUN - BLOOD UREA NITROGEN 23 mg/dL (6-20); CALCIUM 8.3 mg/dL (8.5-10.3); CARBON DIOXIDE - CO2 24 mmol/L (21-32); CHLORIDE 111 mmol/L (101-111); CREATININE 1.2 mg/dL (0.4-1.0); GFR - MDRD 42 (>89); GLUCOSE 92 mg/dL (70-100); MAGNESIUM 1.6 mg/dL (1.7-2.8); SODIUM 142 mmol/L (135-145); TOTAL PROTEIN 5.6 g/dL (6.7-8.2)
[2017-11-09] MEDS ORDERED: MAGNESIUM OXIDE 400 MG TABLET PO SCH (08:00)
[2017-11-09] MEDS ORDERED: POTASSIUM CHLORIDE 20 MEQ/15 ML UDC PO SCH (08:00)
[2017-11-09] MEDS: SODIUM CHLORIDE 0.9% 1,000 ML IV SCH ×2 (09:27→22:25)
[2017-11-09] MEDS: ENOXAPARIN 30 MG/0.3 ML SYRINGE SUBQ SCH (09:27)
[2017-11-09] MEDS: CLOPIDOGREL 75 MG TABLET PO SCH (09:27)
[2017-11-09] MEDS: FERROUS SULFATE 325 MG TABLET PO SCH ×2 (09:29→17:55)
[2017-11-09] MEDS: FAMOTIDINE 20 MG TABLET PO SCH (09:29)
[2017-11-09] MEDS: METOPROLOL TARTRATE 50 MG TABLET PO SCH ×2 (09:30→20:14)
[2017-11-09] MEDS: hydroCHLOROthiazide 25 MG TABLET PO SCH (09:30)
[2017-11-09] MEDS: amLODIPine 5 MG TABLET PO SCH (09:31)
[2017-11-09] MEDS: lamoTRIgine 100 MG TABLET PO SCH ×2 (09:32→20:14)
[2017-11-09] MEDS: POLYETHYLENE GLYCOL 3350 17 GM PACKET PO SCH (09:32)
[2017-11-09] MEDS: SENNA 8.6 MG TABLET PO SCH (09:32)
[2017-11-09] MEDS: DOCUSATE SODIUM 250 MG CAPSULE PO SCH (09:33)
[2017-11-09] MEDS: POTASSIUM CHLOR 10 MEQ/100 ML 10 MEQ/100 ML BAG IV SCH ×2 (11:06→14:06)
--- NOTE | 2017-11-09 12:15 | Discharge Plan ---
"Discharge Plan for SNF / [facility] - DC Plan and Transition Orders Disposition: 03 SNF DC/Xfer Condition: Stable SNF Transition Orders: Admit to: [[facility]] under the care of [Doctor Deejay Mauro] Discharge Diagnosis: [fracture of right femur, fall, hypertension, chronic constipation, iron deficiency anemia, hx of CVA,] Medicare Certification: I certify that Post Hospital care home care is medically necessary on a continuing basis for any of the conditions for which she/he is receiving care during hospitalization. Notify PCP of admission and forward orders to primary provider for signature. 58.9 kg on admission and 11/05/17. Call PCP immediately if weight increases by [4] pounds or if patient develops dyspnea, chest pain/tightness or edema. House Bowel Program: [Yes] If no BM after 2 days, nurse may give M.O.M. 30ml PO PRN and /or ducolax Supp 1 DE and /or HERMILA 250mg P.O., and/or senna 1-2 tabs PO. On day 3 nurse may give repeat above order until residents constipation is resolved. Immunizations: Annual Influenza Vaccine: [Yes]. (between Jul 01 and January 28.) Unless allergy or already given Two-Step PPD: [Yes] per [facility] [phone] or appropriate documentation of approved exceptions Treatments & Other Orders: [May see PCP in 3-4 days, continue with PT/OT/ST, weight bearing at tolerate on right, follow up in 2 weeks in orthopedics clinic ] Oxygen Orders: [PRN] Lab Tests or X-Rays Orders: [ CBC and CMP on 11/15/2017] Orthopedic Orders: [ continue with PT/OT/ST, weight bearing at tolerate on right , follow up in 2 weeks in orthopedics clinic ]. Medications: PLEASE REFER TO THE DISCHARGE MEDICATION LIST. Insulin Orders? [No] Diagnosis: Diabetes Initiate hypo and hyperglycemia protocols for BG <70 and BG >375. May check BG prn for signs/symptoms of dysglycemia. Frequency of BG checks: [AC/Meal/HS] Basal Insulin: [] Lantus 100 units / ml inject subq as follows: [] [] Other: [] Correction Insulin: - Select the type of insulin below [Choose: Novolog/Humalog]100 units /ml insulin inject subq per orders indicate below [] LOW DOSE [] MODERATE DOSE [] MODERATE/HIGH DOSE [] HIGH DOSE GB UNITS GB UNITS GB UNITS GB UNITS 61-140 0 UNITS 61-140 0 UNITS 61-140 0 UNITS 61-140 0 UNITS 141-175 1 UNITS 141-175 1 UNITS 141-175 2 UNITS 141-175 3 UNITS 176-225 2 UNITS 176-225 3 UNITS 176-225 4 UNITS 176-225 5 UNITS 226-275 3 UNITS 226-275 5 UNITS 226-275 6 UNITS 226-275 7 UNITS 276-325 4 UNITS 276-325 7 UNITS 276-325 8 UNITS 276-325 9 UNITS 326-375 5 UNITS 326-375 9 UNITS 326-375 10 UNITS 326-375 11 UNITS >375 CONTACT MD >375 CONTACT MD >375 CONTACT MD >375 CONTACT MD Custom Dosing: [Choose: None/Novolog/Humalog] 100 units/ml Insulin inject subq as follows: GB Units 61-140 [] Units 141-175 [] Units 176-225 [] Units 226-275 [] Units 276-325 []Units 326-375 [] Units >375 Contact MD Allergies and Adverse Reactions: Allergies Allergy/AdvReac Type Severity Reaction Status Date / Time No Known Drug Allergies Allergy Verified 11/05/17 06:29 - Medications New Prescriptions: Amox/Clav 500/125 [Augmentin] 1 each PO Q12H #10 tablet Ferrous Sulfate 325 mg PO DAILY #10 tablet HYDROcod/ACETAM 5/325 [[place] 5/325] 1 each PO Q6H PRN #15 tablet PRN Reason: Pain Potassium Chloride 20 meq PO DAILY #5 packet - Diet Type: Geriatric Texture: Dysphagia mech Liquids: [place] thick May have monthly special meal: Yes - Therapies | Activity Therapy: Evaluation | Treat if indicated: Speech, PT, OT, Swallowing / ST Rehabilitation Potential: Maximize functional status Activity: Activity as Tolerated Additional Instructions: May see PCP in 3-4 days, May continue with PT/OT/ST, weight bearing at tolerate on right, follow up in 2 weeks in orthopedics clinic"
[2017-11-09] MEDS: POTASSIUM CHLORIDE 20 MEQ/15 ML UDC PO SCH ×2 (12:19→12:21)
--- NOTE | 2017-11-09 12:58 | PROVIDER PROGRESS NOTE ---
Subjective - Prog Note Date Prog Note Date: 11/09/17 Prog Note Time: 12:57 - Subjective Pt reports feeling: Improved (Sleeping) Objective - Vital Signs/Intake & Output Vital Signs: Vital Signs x48h Temp Pulse Resp BP Pulse Ox 11/09/17 09:04 36.4 C L 87 18 117/38 L 97 Intake & Output: Intake & Output 11/06/17 11/07/17 11/08/17 11/09/17 23:59 23:59 23:59 23:59 Intake Total 3471 3445.000 3220.000 1763.334 Output Total 182 144 2448 Balance 2721 2470.000 914.197 5348.334 - Lab Results Fish Bones: 11/09/17 05:14 11/09/17 05:14 Other Labs: Lab Results x24hrs 11/09/17 11/09/17 Range/Units 05:14 05:14 WBC 9.1 (4.8-10.8) x10^3/uL RBC 3.18 L (4.20-5.40) 10^6/uL Hgb 9.9 L (12.0-16.0) g/dL Hct 29.2 L (37.0-47.0) % MCV 91.8 (81.0-99.0) fL MCH 31.1 H (27.0-31.0) pg MCHC 33.9 (32.0-36.0) g/dL RDW 15.0 (12.0-15.0) % Plt Count 219 (130-450) 10^3/uL MPV 8.3 (7.9-10.8) fL Neut # 8.1 H (1.5-6.6) 10^3/uL Lymph # 0.4 L (1.5-3.5) 10^3/uL [place] # 0.6 (0.0-1.0) 10^3/uL Eos # 0.0 (0.0-0.7) 10^3/uL Baso # 0.0 (0.0-0.1) 10^3/uL Absolute Nucleated RBC 0.00 x10^3/uL Nucleated RBC % 0.0 /100WBC Sodium 142 (135-145) mmol/L Potassium 2.7 L (3.5-5.0) mmol/L Chloride 111 (101-111) mmol/L Carbon Dioxide 24 (21-32) mmol/L Anion Gap 7.0 (6-13) BUN 23 H (6-20) mg/dL Creatinine 1.2 H (0.4-1.0) mg/dL Estimated GFR (MDRD) 42 L (>89) Glucose 92 (70-100) mg/dL Calcium 8.3 L (8.5-10.3) mg/dL Magnesium 1.6 L (1.7-2.8) mg/dL Total Bilirubin 0.9 (0.2-1.0) mg/dL AST 21 (10-42) IU/L ALT < 10 L (10-60) IU/L Alkaline Phosphatase 67 (42-121) IU/L Total Protein 5.6 L (6.7-8.2) g/dL Albumin 2.9 L (3.2-5.5) g/dL Globulin 2.7 (2.1-4.2) g/dL Albumin/Globulin Ratio 1.1 (1.0-2.2) Assessment/Plan - Problem List (1) Intertrochanteric fracture of right femur Impression: - satis post op PLAN: To SNF today as planned. Follow up in orthopedic clinic in about 2 weeks. Qualifiers: Encounter type: initial encounter Fracture type: closed Fracture alignment: displaced Qualified Code(s): S72.141A - Displaced intertrochanteric fracture of right femur, initial encounter for closed fracture
[2017-11-09] MEDS ORDERED: POTASSIUM CHLOR 10 MEQ/100 ML 10 MEQ/100 ML BAG IV SCH ×2 (14:00→15:00)
--- NOTE | 2017-11-09 15:22 | DISCHARGE SUMMARY ---
"Discharge Summary Discharge Date: 11/09/17 Discharging Provider: AWAD Primary Care Provider: Dr Deejay Mauro Condition at Discharge: Stable Discharge Disposition: 03 SNF DC/Xfer Discharge Facility Name: [facility] - DIAGNOSES Admission Diagnoses: (1) Intertrochanteric fracture of right femur (2) Fall (3) Hypertension (4) Chronic constipation (5) Iron deficiency anemia (6) CVA, old, cognitive deficits (7) Delirium due to known physiological condition Discharge Diagnoses with Status of Each Condition: (1) Intertrochanteric fracture of right femur surgery done by surgeon, evaluation and treatment by PT/OT. pt is gradually improved mobility function. (2) Fall continue on SNF training (3) Hypertension stable, (4) Chronic constipation stable, continue SNF protocol for constipation (5) Iron deficiency anemia stable, HGB9.9, continue ferrous sulfate (6) CVA, old, cognitive deficits stable for previous stroke, continue Plavix, continue PT/OT/ST in SNF (7) Delirium due to known physiological condition stable. after pt has sleep, pt can clearly talk with me in this afternoon around 3pm, pt is on her baseline for her mental status (8) pneumonia after treatment with antibiotics - HPI History of Present Illness: please refer from Ms. Real's HPI on 11/05/17 as the following: Quiana Tijerina is an elderly, well-appearing 86-year old female with a past medical history of CVA-residual mental capacity, hypertension, chronic constipation, ovarian cancer, urinary incontinence, and vision loss. She presented to the ED via EMS who arrived at her home after the life-line alert was activated. Patient was found in a closet around 2AM, because it was reported that she was getting ready for a baby shower later today and was confused about what time it was. According to her son, Osvaldo, she has been more confused for up to a week before this fall. Once the patient arrived in the ED she was found to have a suspected fractured hip, x-ray confirmed, an elevated WBC count of 15.4, and foul smelling urine. Patient will be admitted and cleared for surgery with Dr. Mancera, Orthopedic surgery. - CONSULTS | PROCEDURES Consultations: ortho surgeon Procedures: right femur repair - HOSPITAL COURSE Hospital Course: Pt was admitted for fall and right femur fracture. Pt had femur fracture repaired by surgeon. pt also developed pneumonia. Pt was treated with antibiotics. Pt developed significant anemia. The blood was transfused to pt. Pt was treated and evaluated by PT/OT. Pt was recommended to SNF for further training. pt was prescribed Potassium for hypokalemia, Hayes for pain control, Ferrous sulfate for iron deficiency, Augmentin for finishing antibiotics course for pneumonia. - ALLERGIES Allergies/Adverse Reactions: Allergies Allergy/AdvReac Type Severity Reaction Status Date / Time No Known Drug Allergies Allergy Verified 11/05/17 06:29 - MEDICATIONS Home Medications: Ambulatory Orders Medication Instructions Recorded Confirmed Lisinopril [Zestril] 40 mg PO DAILY 07/18/13 11/08/17 Metoprolol Tartrate [Lopressor] 50 mg PO BID 07/18/13 11/08/17 Clopidogrel [Plavix] 75 mg PO DAILY 01/02/16 11/08/17 Hydrochlorothiazide 25 mg PO DAILY 01/02/16 11/08/17 lamoTRIgine [LaMICtal] 100 mg PO BID 01/02/16 11/08/17 Amlodipine Besylate [Norvasc] 10 mg PO DAILY 11/08/17 11/08/17 Amox/Clav 500/125 [Augmentin] 1 each PO Q12H #10 tablet 11/09/17 Ferrous Sulfate 325 mg PO DAILY #10 tablet 11/09/17 HYDROcod/ACETAM 5/325 [[place] 5/325] 1 each PO Q6H PRN #15 tablet 11/09/17 Potassium Chloride 20 meq PO DAILY #5 packet 11/09/17 - PHYSICAL EXAM AT DISCHARGE General Appearance: positive: No acute distress, Alert. negative: Lethargic Eyes Bilateral: positive: Normal inspection, PERRL, No lid inflammation, Conjunctivae nml ENT: positive: ENT inspection nml, Pharynx nml, No signs of dehydration. negative: Purulent nasal drainage, Pharyngeal erythema, Oral lesions Neck: positive: Nml inspection, Thyroid nml, No JVD, Trachea midline. negative : Thyromegaly, Lymphadenopathy (R), Lymphadenopathy (L), Stiff neck, Carotid bruit, Swelling/bruising, Tracheal deviation Respiratory: positive: Chest non-tender, No respiratory distress, Breath sounds nml. negative: Wheezes, Rales, Rhonchi Cardiovascular: positive: Regular rate & rhythm, No murmur, No gallop. negative : Irregularly irregular, Extrasystoles, Tachycardia, Bradycardia, Systolic murmur, Diastolic murmur Peripheral Pulses: positive: 2+ Abdomen: positive: Non-tender, No organomegaly, Nml bowel sounds, No distention. negative: Tenderness, Guarding, Rebound Back: positive: Nml inspection. negative: CVA tenderness (R), CVA tenderness (L ) Skin: positive: Color nml, No rash, Warm, Dry. negative: Cyanosis, Diaphoresis , Pallor Extremities: positive: Non-tender, Full ROM. negative: Calf tenderness, Joint swelling, Yoni's sign/cords Neurologic/Psychiatric: positive: Oriented x3, Motor nml, Sensation nml. negative: Sensory loss, Facial droop, Slurred/abnml speech, Depressed mood/ affect - LABS Result Diagrams: 11/10/17 05:10 11/10/17 05:10 - FOLLOW UP Follow Up: May see PCP in 3-4 days, continue with PT/OT/ST, weight bearing at tolerate on right, follow up in 2 weeks in orthopedics clinic. pt was prescribed Potassium for hypokalemia, Hayes for pain control, Ferrous sulfate for iron deficiency, Augmentin for finishing antibiotics course for pneumonia. - TIME SPENT Time Spent in Discharge (Minutes): 50"
[2017-11-09] MEDS: ACETAMINOPHEN 325 MG TABLET PO PRN (18:34)
--- NOTE | 2017-11-09 18:48 | PROVIDER PROGRESS NOTE ---
Subjective - Prog Note Date Prog Note Date: 11/09/17 - Subjective Pt reports feeling: Improved Subjective: [facility] accepted pt. The rehabilitation caseworker and school social worker faxed all information to [facility], But [facility] did not take pt, do not know the reason. Current Medications - Current Medications Current Medications: Lisinopril [Zestril] 40 mg PO DAILY 07/18/13 Metoprolol Tartrate [Lopressor] 50 mg PO BID 07/18/13 Clopidogrel [Plavix] 75 mg PO DAILY 01/02/16 Hydrochlorothiazide 25 mg PO DAILY 01/02/16 lamoTRIgine [LaMICtal] 100 mg PO BID 01/02/16 Amlodipine Besylate [Norvasc] 10 mg PO DAILY 11/08/17 Objective - Vital Signs/Intake & Output Vital Signs: Vital Signs x48h Temp Pulse Resp BP Pulse Ox 11/09/17 15:32 37.1 C 80 24 155/67 H 97 11/09/17 13:44 22 93 Intake & Output: Intake & Output 11/06/17 11/07/17 11/08/17 11/09/17 23:59 23:59 23:59 23:59 Intake Total 3471 3445.000 3220.000 2156.667 Output Total 757 876 9934 Balance 2721 2470.000 428.455 3066.667 - Objective General Appearance: positive: No acute distress, Alert. negative: Lethargic Eyes Bilateral: positive: Normal inspection, PERRL, No lid inflammation, Conjunctivae nml ENT: positive: ENT inspection nml, Pharynx nml, No signs of dehydration. negative: Purulent nasal drainage, Pharyngeal erythema, Oral lesions, Dry mucous membranes Neck: positive: Nml inspection, Thyroid nml, No JVD, Trachea midline. negative : Thyromegaly, Lymphadenopathy (R), Lymphadenopathy (L), Stiff neck, Carotid bruit, Swelling/bruising, Tracheal deviation Respiratory: positive: Chest non-tender, No respiratory distress, Breath sounds nml. negative: Wheezes, Rales, Rhonchi Cardiovascular: positive: Regular rate & rhythm, No murmur, No gallop. negative : Irregularly irregular, Extrasystoles, Tachycardia, Bradycardia, Systolic murmur, Diastolic murmur Peripheral Pulses: 2+ Radial (R), 2+ Radial (L), 2+ Dorsalis pedis (R), 2+ Dorsalis pedis (L) Abdomen: positive: Non-tender, No organomegaly, Nml bowel sounds, No distention. negative: Tenderness, Guarding, Rebound Back: positive: Nml inspection. negative: CVA tenderness (R), CVA tenderness (L ) Skin: positive: Color nml, No rash, Warm, Dry. negative: Cyanosis, Diaphoresis , Pallor Extremities: positive: Non-tender, Full ROM, Nml appearance. negative: Calf tenderness, Joint swelling, Yoni's sign/cords Neurologic/Psychiatric: positive: Oriented x3, Motor nml, Sensation nml, Mood/ affect nml. negative: Sensory loss, Facial droop, Slurred/abnml speech, Depressed mood/affect - Lab Results Fish Bones: 11/10/17 05:10 11/10/17 05:10 Other Labs: Lab Results x24hrs 11/09/17 11/09/17 11/09/17 Range/Units 14:24 05:14 05:14 WBC 9.1 (4.8-10.8) x10^3/uL RBC 3.18 L (4.20-5.40) 10^6/uL Hgb 9.9 L (12.0-16.0) g/dL Hct 29.2 L (37.0-47.0) % MCV 91.8 (81.0-99.0) fL MCH 31.1 H (27.0-31.0) pg MCHC 33.9 (32.0-36.0) g/dL RDW 15.0 (12.0-15.0) % Plt Count 219 (130-450) 10^3/uL MPV 8.3 (7.9-10.8) fL Neut # 8.1 H (1.5-6.6) 10^3/uL Lymph # 0.4 L (1.5-3.5) 10^3/uL [place] # 0.6 (0.0-1.0) 10^3/uL Eos # 0.0 (0.0-0.7) 10^3/uL Baso # 0.0 (0.0-0.1) 10^3/uL Absolute Nucleated RBC 0.00 x10^3/uL Nucleated RBC % 0.0 /100WBC Sodium 142 (135-145) mmol/L Potassium 3.1 L 2.7 L (3.5-5.0) mmol/L Chloride 111 (101-111) mmol/L Carbon Dioxide 24 (21-32) mmol/L Anion Gap 7.0 (6-13) BUN 23 H (6-20) mg/dL Creatinine 1.2 H (0.4-1.0) mg/dL Estimated GFR (MDRD) 42 L (>89) Glucose 92 (70-100) mg/dL Calcium 8.3 L (8.5-10.3) mg/dL Magnesium 1.6 L (1.7-2.8) mg/dL Total Bilirubin 0.9 (0.2-1.0) mg/dL AST 21 (10-42) IU/L ALT < 10 L (10-60) IU/L Alkaline Phosphatase 67 (42-121) IU/L Total Protein 5.6 L (6.7-8.2) g/dL Albumin 2.9 L (3.2-5.5) g/dL Globulin 2.7 (2.1-4.2) g/dL Albumin/Globulin Ratio 1.1 (1.0-2.2) Assessment/Plan - Problem List (1) Intertrochanteric fracture of right femur Impression: (1) Intertrochanteric fracture of right femur Impression: [facility] accepted pt. pt had the order of discharge to [facility]. But [facility] did not take pt. I do not know the reason. pt and pt's family agreed to be discharged to [facility]. will continue PT/OT continue pain control plan to be discharged to SNF, follow up orthopedic recommendation. Patient was found by EMS in her closet after a fall with injury to right hip. X -rays confirm fracture. Dr. Mancera performed surgery on 11/06/17, no complications. Blood counts have dropped, but likely from the fall rather than from surgical causes. Plan: PT therapy, but on hold until PRBCs are given and blood counts are greater than 8 and 25. Will replace with one PRBCs this evening. (2) Fall Impression: Patient has a Life-line that is provided by this hospital. Patient has not had several falls, and none with injury prior to this event. I suspect UTI, dehydration was the primary cause of this fall. Urine studies are inconclusive. Plan: Fall precautions and avoid long-term narcotics. (3) Hypertension Impression: pt has elevated BP, reconciliate home BP meds Cloninide PRN Patient has a prominent history of this and is on several agents that seems to be the right formula for her per her son, Osvaldo. She has seen a front facer and PCP to make adjustments. Plan: continue medical management. (4) Chronic constipation Impression: Patient suspected to have slow bowels due to antihypertensive medications. Plan: Prescribed extra bowel medications, especially post op. Senna resumed, and will add a suppository and an enema. (5) Iron deficiency anemia Impression: transfusion of blood, now HGB 9.4 continue lab monitor Post transfusion lab results are hemoglobin increased from 7.6 to 7.8. Physical therapy has agreed to dangle patient, but waiting for hemoglobin to reach 8. Plan: Continue ferrous sulfate PO BID that was started yesterday. 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 Plan: Resume plavix after surgery and give lovenox per ortho surgery. (7) Delirium due to known physiological condition Impression: pt has some confusion at morning, but after she had sleep, she oriented again. pt is more oriented continue neuro check Patient has shown signs of confusion and at one point pulled out her IV that was just finishing her PRBCs. Patient has been reaching for things in the air. This is improved today and the morphine was changed to IV dilaudid. Plan: Limit narcotics. IV tylenol for pain should be given first. (8) pneumonia pt had SO2 95% on room air, WBC is at NWL, lung sound at NWL consider PO antibiotics to finish the antibiotics course for pt pt has low SO2 and with O2 supplement CXR reveals possible pneumonia with elevated WBC continue Zosyn continue vital, and lab monitor Qualifiers: Encounter type: initial encounter Fracture type: closed Fracture alignment: displaced Qualified Code(s): S72.141A - Displaced intertrochanteric fracture of right femur, initial encounter for closed fracture
[2017-11-09] MEDS: HYDROcod/ACETAM 5/325 MG TABLET PO PRN (20:13)
[2017-11-10] MEDS: PIPERACILLIN/TAZOBACTAM 3.375 GM in SODIUM CHLORIDE 0.9% MINIBAG 100 ML IV SCH ×2 (01:51→08:22)
[2017-11-10 05:21] LABS: BASOPHILS % (AUTO) 0.5 %; EOSINOPHILS # (AUTO) 0.1 10^3/uL (0.0-0.7); EOSINOPHILS % (AUTO) 0.8 %; HGB - HEMOGLOBIN 9.6 g/dL (12.0-16.0); LYMPHOCYTES # (AUTO) 0.8 10^3/uL (1.5-3.5); LYMPHOCYTES % (AUTO) 9.8 %; MEAN CORPUSCULAR HEMOGLOBIN 30.5 pg (27.0-31.0); MEAN CORPUSCULAR HGB CONC 33.2 g/dL (32.0-36.0); MEAN PLATELET VOLUME 7.6 fL (7.9-10.8); MONOCYTES # (AUTO) 0.7 10^3/uL (0.0-1.0); MONOCYTES % (AUTO) 9.5 %; NEUTROPHILS # (AUTO) 6.2 10^3/uL (1.5-6.6); NEUTROPHILS % (AUTO) 79.4 %; PLT - PLATELET COUNT 238 10^3/uL (130-450); RED BLOOD COUNT 3.14 10^6/uL (4.20-5.40); RED CELL DISTRIBUTION WIDTH 14.9 % (12.0-15.0); WHITE BLOOD COUNT 7.8 x10^3/uL (4.8-10.8)
[2017-11-10 05:33] LABS: ALBUMIN 2.8 g/dL (3.2-5.5); ALKALINE PHOSPHATASE 59 IU/L (42-121); ALT ALANINE AMINOTRANSFERASE < 10 IU/L (10-60); AST ASPARTATE AMINOTRANSFERASE 19 IU/L (10-42); BUN - BLOOD UREA NITROGEN 18 mg/dL (6-20); CALCIUM 8.4 mg/dL (8.5-10.3); CARBON DIOXIDE - CO2 24 mmol/L (21-32); CHLORIDE 110 mmol/L (101-111); CREATININE 1.1 mg/dL (0.4-1.0); GFR - MDRD 47 (>89); GLUCOSE 93 mg/dL (70-100); SODIUM 142 mmol/L (135-145); TOTAL PROTEIN 5.5 g/dL (6.7-8.2)
[2017-11-10] MEDS ORDERED: POTASSIUM CHLORIDE 20 MEQ TABLET PO ONE ×2 (06:58→07:52)
[2017-11-10] MEDS: SODIUM CHLORIDE FLUSH 0.9% 10 ML SYRINGE IVP SCH (07:00)
[2017-11-10] MEDS: POTASSIUM CHLOR 10 MEQ/100 ML 10 MEQ/100 ML BAG IV SCH ×4 (07:10→10:16)
[2017-11-10] MEDS: ACETAMINOPHEN 325 MG TABLET PO PRN (07:11)
[2017-11-10] MEDS ORDERED: POTASSIUM CHLOR 10 MEQ/100 ML 10 MEQ/100 ML BAG IV ONE ×2 (07:54→07:55)
[2017-11-10] MEDS: CLOPIDOGREL 75 MG TABLET PO SCH (08:13)
[2017-11-10] MEDS: SENNA 8.6 MG TABLET PO SCH (08:14)
[2017-11-10] MEDS: FAMOTIDINE 20 MG TABLET PO SCH (08:14)
[2017-11-10] MEDS: lamoTRIgine 100 MG TABLET PO SCH (08:14)
[2017-11-10] MEDS: DOCUSATE SODIUM 250 MG CAPSULE PO SCH (08:14)
[2017-11-10] MEDS: amLODIPine 5 MG TABLET PO SCH (08:14)
[2017-11-10] MEDS: FERROUS SULFATE 325 MG TABLET PO SCH (08:15)
[2017-11-10] MEDS: METOPROLOL TARTRATE 50 MG TABLET PO SCH (08:15)
[2017-11-10] MEDS: POLYETHYLENE GLYCOL 3350 17 GM PACKET PO SCH (08:16)
[2017-11-10] MEDS: hydroCHLOROthiazide 25 MG TABLET PO SCH (08:17)
[2017-11-10] MEDS: ENOXAPARIN 30 MG/0.3 ML SYRINGE SUBQ SCH (08:20)
[2017-11-10 08:24] VITALS: BP 147/77
[2017-11-10] MEDS: SODIUM CHLORIDE 0.9% 1,000 ML IV SCH (08:58)
--- NOTE | 2017-11-22 14:57 | XRAY Report ---
[facility] Fluoroscopy time; 4 images submitted for interpretation. Fluoroscopy time 0 minutes, 27 seconds. NAEEMD
== END 2017-11-10 14:00 | DRG 480 ==
LOC: EDUNIT# → ED 06:21 → MS2 09:07
PROVIDERS: ADMIT Nurse Practitioner; ATTEND Nurse Practitioner Gerontology
PROC: 0QS634Z Reposition Right Upper Femur with Internal Fixation Device, Percutaneous Approach (ICD-10-PCS; 2017-11-05)
PROC: 30233N1 Transfusion of Nonautologous Red Blood Cells into Peripheral Vein, Percutaneous Approach (ICD-10-PCS; principal; 2017-11-06)
DX: S72.141A Displaced intertrochanteric fracture of right femur, initial encounter for closed fracture (principal); J18.9 Pneumonia, unspecified organism; S00.03XA Contusion of scalp, initial encounter; W18.30XA Fall on same level, unspecified, initial encounter; Y92.003 Bedroom of unspecified non-institutional (private) residence as the place of occurrence of the external cause; E87.6 Hypokalemia; E86.0 Dehydration; R41.0 Disorientation, unspecified; D50.9 Iron deficiency anemia, unspecified; Z86.73 Personal history of transient ischemic attack (TIA), and cerebral infarction without residual deficits; I12.9 Hypertensive chronic kidney disease with stage 1 through stage 4 chronic kidney disease, or unspecified chronic kidney disease; N18.9 Chronic kidney disease, unspecified; I69.919 Unspecified symptoms and signs involving cognitive functions following unspecified cerebrovascular disease; H35.30 Unspecified macular degeneration; K59.09 Other constipation; R32 Unspecified urinary incontinence; R35.1 Nocturia; R35.0 Frequency of micturition; Z79.02 Long term (current) use of antithrombotics/antiplatelets; Z79.899 Other long term (current) drug therapy; Z85.43 Personal history of malignant neoplasm of ovary; Z91.81 History of falling; Z78.1 Physical restraint status; K21.9 Gastro-esophageal reflux disease without esophagitis
CPT/HCPCS: 36415; 51703; 70450; 71045; 72125; 80053; 80175; 81001; 81003; 83540; 83605; 83690; 83735; 84132; 84466; 84484; 85025; 86850; 86900; 86901; 86920; 87086; 93005; 96361; 96374; 99284; 99285

== ENCOUNTER 2017-11-15 14:30 | Outpatient (CLI) | payer MEDICARE, OTHER ==
[2017-11-15 15:41] LABS: BASOPHILS % (AUTO) 0.2 %; EOSINOPHILS % (AUTO) 0.1 %; HGB - HEMOGLOBIN 10.5 g/dL (12.0-16.0); LYMPHOCYTES # (AUTO) 0.6 10^3/uL (1.5-3.5); LYMPHOCYTES % (AUTO) 3.7 %; MEAN CORPUSCULAR HEMOGLOBIN 30.6 pg (27.0-31.0); MEAN CORPUSCULAR HGB CONC 32.4 g/dL (32.0-36.0); MEAN CORPUSCULAR VOLUME 94.3 fL (81.0-99.0); MEAN PLATELET VOLUME 7.9 fL (7.9-10.8); MONOCYTES # (AUTO) 1.1 10^3/uL (0.0-1.0); MONOCYTES % (AUTO) 6.5 %; NEUTROPHILS # (AUTO) 15.2 10^3/uL (1.5-6.6); NEUTROPHILS % (AUTO) 89.5 %; PLT - PLATELET COUNT 423 10^3/uL (130-450); RED BLOOD COUNT 3.44 10^6/uL (4.20-5.40); RED CELL DISTRIBUTION WIDTH 15.5 % (12.0-15.0); WHITE BLOOD COUNT 16.9 x10^3/uL (4.8-10.8)
[2017-11-15 15:50] LABS: ALBUMIN 3.6 g/dL (3.2-5.5); ALBUMIN/GLOBULIN RATIO 1.3 (1.0-2.2); ALKALINE PHOSPHATASE 80 IU/L (42-121); ALT ALANINE AMINOTRANSFERASE < 10 IU/L (10-60); AST ASPARTATE AMINOTRANSFERASE 18 IU/L (10-42); BILIRUBIN,TOTAL 0.5 mg/dL (0.2-1.0); BUN - BLOOD UREA NITROGEN 25 mg/dL (6-20); CARBON DIOXIDE - CO2 26 mmol/L (21-32); CHLORIDE 100 mmol/L (101-111); CREATININE 1.4 mg/dL (0.4-1.0); GFR - MDRD 35 (>89); GLUCOSE 162 mg/dL (70-100); SODIUM 137 mmol/L (135-145); TOTAL PROTEIN 6.4 g/dL (6.7-8.2)
== END 2017-11-15 14:31 | disposition home or self-care (01) ==
LOC: LAB.R 14:30
DX: E87.6 Hypokalemia (principal); I48.2 Chronic atrial fibrillation
CPT/HCPCS: 80053; 85025

== ENCOUNTER 2017-11-22 11:25 | Outpatient (CLI) | payer MEDICARE, OTHER | END 2017-11-22 11:26 | disposition home or self-care (01) | LOC: LAB.R 11:25 | DX: J69.0 Pneumonitis due to inhalation of food and vomit (principal) | CPT/HCPCS: 87040 ==

== ENCOUNTER 2018-01-20 13:15 | Outpatient (CLI) | payer MEDICARE, OTHER ==
--- NOTE | 2018-01-20 13:43 | CONSULTATION NOTE ---
Palliative Care Consultation - Referral Referring Provider: Dr. Janelle Lujan Time of Visit: 01/20/18. 10:05 - 11:40 Referral Reason: Debility, recent R femur fracture - Information Sources Records reviewed: RN notes reviewed, Previous records reviewed History/Review of Systems obtained from: Patient, Family, Caregiver Exam limitations: No limitations - History of Present Illness Brief History of Present Illness: Thank you, Dr. Lujan, for asking the palliative care consult service to be involved in the care of your patient. I am asked to provide support regarding progressive weakness s/p R hip fracture and advanced care planning. FACE to FACE for HOME HEALTH CARE: Physical therapy, occupational therapy, speech pathology therapy: Due to lower extremity weakness and general debility after a fall resulting in intertrochanteric fracture of R femur s/p ORIF, patient is completely non- ambulatory and non-weight bearing, and requires total assistance for transfers. Prior to the fracture, patient was ambulatory with a walker. She is now wheelchair bound, and house bound due to taxing and considerable effort due to immobility and transfer issues secondary to R femur fracture and senescence. Patient would benefit from outpatient physical and occupation therapy to increase upper and lower extremity strength, increase mobility and stamina. Patient chokes and coughs with eating and drinking, a risk for aspiration pneumonia and was recently diagnosed and treated with pneumonia twice. She would benefit from speech/swallow therapy by the speech language therapist. - This is a delightful 87-year-old woman with cognitive deficits and h/o recurrent falls, recently hospitalized November 05-2017 for an intertrochanteric fracture of R femur s/p ORIF. She was released to [facility] for rehabilitation, and discharged home around Dec 23, 2017 with outpatient therapy. 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 - Present at this initial assessment: patient, son Osvaldo Tijerina, [id number] Reta, grandnephew and neighbor Twan Rothman and Edith White, caregiver. - Good wit and dry sense of humor. - Articulate, deliberate speech. Memory deficits. - Has made some progress with therapy but remains weak, has minimal weight- bearing capacity, still requires total assistance for transfers. - Hip still painful at times but she uses Tylenol only occasionally. - PCP visit last week, diagnosed with infection/UTI and started on Bactrim DS. - Good appetite, sleeps well, wakes up several times during night for urination and goes right back to sleep. 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 - Has lost significant weight since her stroke/TIA 5+ years ago. At that time she weighed 140-150 lbs. New baseline about 120 lbs. She is unsure of her current weight. - Family is interested in Home Health nursing coverage, especially bathing aid. - Currently on outpatient therapy with [facility]: physical therapy, occupational therapy, speech therapy. Medical/Surgical History - Past Medical History Cardiovascular: reports: Hypertension Respiratory: reports: None Neuro: reports: CVA, Seizure disorder (history of seizure, per PCP referral) Endocrine/Autoimmune: reports: None, Type 2 diabetes (per PCP referral) GI: reports: Chronic constipation POLICE CHIEF DEPUTY: reports: Ovarian cancer : reports: Incontinence HEENT: reports: Macular degeneration Psych: reports: None Musculoskeletal: reports: None Derm: reports: None MRSA Hx?: No - Past Surgical History /POLICE CHIEF DEPUTY: reports: Hysterectomy - Substance History Use: Uses substance without health or social issues: NONE Social History - Living Situation Living arrangement: At home Living Situation: Alone, With caregiver(s) (Daily healthcare market consultant, Edith White. 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 Her at age 60. She has always lived on [address] [facility], currently in [facility]. She has one son, Osvaldo , and a daughter who is . She has a daily healthcare market consultant, Edith, and her grand-nephew lives next door to her and is involved in her care. Family History - Family History Family History: Mother: (Has a daughter who is .), Father: Medications/Allergies - Medications Home Medications: Ambulatory Orders Medication Instructions Recorded Confirmed Lisinopril [Zestril] 40 mg PO DAILY 07/18/13 01/20/18 Metoprolol Tartrate [Lopressor] 50 mg PO BID 07/18/13 01/20/18 Clopidogrel [Plavix] 75 mg PO DAILY 01/02/16 01/20/18 Hydrochlorothiazide 25 mg PO DAILY 01/02/16 01/20/18 lamoTRIgine [LaMICtal] 100 mg PO BID 01/02/16 01/20/18 Amlodipine Besylate [Norvasc] 5 mg PO DAILY 11/08/17 01/20/18 Potassium Chloride 20 meq PO DAILY #5 packet 11/09/17 01/20/18 Sulfamethox/Trimeth 800/160 1 tab PO BID MDD for 7 days 01/20/18 01/20/18 [Bactrim Ds] - Allergies Allergies/Adverse Reactions: Allergies Allergy/AdvReac Type Severity Reaction Status Date / Time No Known Drug Allergies Allergy Verified 11/05/17 06:29 Review of Systems - Constitutional Constitutional: reports: Fatigue, Weakness, Weight loss (Has lost weight from 4- 5 years ago when baselined was 140-150lbs. They think current baseline is around 120 lbs. She thinks she has lost weight since hip fracture, but does not know current weight. R bicep circumference is 22cm.). denies: Poor appetite - Eyes Eyes: reports: Vision loss - Ears, Nose & Throat Ears, Nose & Throat: reports: Hearing loss - Cardiovascular Cardiovascular: reports: Decr. exercise tolerance. denies: Chest pain - Respiratory Respiratory: denies: Cough - Gastrointestinal Gastrointestinal: reports: Good appetite - Genitourinary Genitourinary: reports: Nocturia - Musculoskeletal Musculoskeletal: reports: Limited range of motion (Kyphosis), Muscle weakness, Assistive devices (Wheelchair since hip fracture. Previously ambulatory with walker), Transfer issues (Requires total assistance for transfers) - Psychiatric Psychiatric: denies: Behavior disturbances Physical Exam - Vital Signs Temperature: 96.6 F Pulse Rate: 60 O2 Saturation: 99 (room air) Blood Pressure: 125/68 - Physical Exam General Appearance: positive: No acute distress, Alert, Other (slow, deliberate , articulate) Eyes Bilateral: positive: Normal inspection ENT: positive: No signs of dehydration Neck: positive: No JVD, Trachea midline Cardiovascular: positive: Regular rate & rhythm, No murmur Respiratory: positive: No respiratory distress Skin: positive: Other (scabbed basal cell lesions at top of skull; Mohs surgery is scheduled) Extremities: positive: Nml appearance, Pedal edema (1+) Neurologic/Psychiatric: positive: Oriented x3, Flat affect Palliative Care - POLST Patient has POLST: Yes POLST Status: DNR, Selective Treatment Pain: Location (R hip pain intermittently.), Comment (Stoic, does not complain of pain) Tiredness/Fatigue: Moderate (4-6), Comment Depression: None Anxiety: None Anorexia: None Sleep: Sleeps well, Other (wakes up to go to the bathroom at night, then goes back to sleep) Feelings of wellbeing/Perceived Quality of Life: Good (She rates her quality of life as "superior") Performance Status: Decline in functionality since R femur fracture in October: increased weakness , cognitive decline, now wheelchair bound, [id number], now requires total assistance for all transfers, home-bound due to weakness and difficulty transferring. Still articulate, has short-term memory deficits. - Palliative Care Discussion: - Conducted a lengthy discussion regarding advanced care planning to reflect patient's priorities, and goals. - Patient's absolutely doesn't want to go to a senior care again. Her goal is to remain independent in her home, and eventually in her home. - POLST filled out in accordance with wishes and stated goals of patient. Family is in agreement. Signed and posted on the refrigerator - Educated on Home Health, Palliative care, Hospice, care givers.....services, criteria, differences, benefits, burdens. - Family wanted Home Health nursing for anticipatory wound following upcoming Mohs surgery, and also nursing aid for bathing help. Provided education re surgeon/human resources vice president would make referral for wound care nursing if indicated, and bathing aid is not a stand-alone benefit. Impression and Recommendations - Palliative Care Impression: This is a delightful 87-year-old woman with cognitive deficits and h/o recurrent falls, recently hospitalized November 05-2017 for an intertrochanteric fracture of R femur. She had physical therapy at [facility] for 7 weeks, then discharged home around 12/23/17 to continue outpatient therapy through [facility] -- physical therapy, occupational therapy, and speech therapy. She has gradually declined in functionality and cognition, particularly since the hip fracture. She would benefit from ongoing outpatient oversight and monitoring of palliative care, and eventual transition to Hospice when appropriate. Recommendations/Counseling Done: UTI: Assessed condition, reacting well to antibiotics, continue Bactrim DS BID x 7 days until regimen completed. Demonstrated method of administration of Bactrim with applesauce. Patient indicated agreement for compliance. R femur fracture, s/p ORIF: Pain has improved, slowly progressing in therapy. Recommend continued therapy. Tylenol for pain control. Patient does not use the [place]; family will discard. Dysphagia: Recommend continued MOBILE HOME SET UP PERSON therapy. HTN: BP controlled with current plan and medications. Continue lisinopril, HCT , amlodipine Atrial fibrillation: Continue care plan with clopidogrel for anticoagulation and metoprolol for rate control. 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 Mohs surgery scheduled for February 06. Advanced care planning: Discussed at length patient and family goals and wishes , translated these to POLST (DNR, selective treatment, comfort antibiotics, no tube feeding), signed and displayed on refrigerator. Patient's expressed goal and priority is to remain at home, eventually at home, and to never go back to a senior care. Next visit: TueFebruary 08 2018, 13:30-14:30. Time Spent: 95 minutes were spent with more than 50% of the time spent on counseling, education, and coordination of care, weighing benefits and burdens, and providing anticipatory guidance.
== END 2018-01-20 13:16 | disposition home or self-care (01) ==
LOC: PC 13:15
PROVIDERS: ATTEND Nurse Practitioner
DX: Z51.5 Encounter for palliative care (principal); N30.90 Cystitis, unspecified without hematuria; S72.141D Displaced intertrochanteric fracture of right femur, subsequent encounter for closed fracture with routine healing; R13.10 Dysphagia, unspecified; I12.9 Hypertensive chronic kidney disease with stage 1 through stage 4 chronic kidney disease, or unspecified chronic kidney disease; I48.2 Chronic atrial fibrillation; Z99.3 Dependence on wheelchair; Z87.01 Personal history of pneumonia (recurrent); Z91.81 History of falling; E11.22 Type 2 diabetes mellitus with diabetic chronic kidney disease; N18.9 Chronic kidney disease, unspecified; K21.9 Gastro-esophageal reflux disease without esophagitis; Z86.73 Personal history of transient ischemic attack (TIA), and cerebral infarction without residual deficits; H35.30 Unspecified macular degeneration; D64.9 Anemia, unspecified; C44.41 Basal cell carcinoma of skin of scalp and neck; Z85.43 Personal history of malignant neoplasm of ovary; Z79.02 Long term (current) use of antithrombotics/antiplatelets; Z66 Do not resuscitate; Z79.899 Other long term (current) drug therapy
CPT/HCPCS: 99345

== ENCOUNTER 2018-02-08 15:35 | Outpatient (CLI) | payer MEDICARE, OTHER ==
--- NOTE | 2018-02-08 16:05 | CONSULTATION NOTE ---
Palliative Care Follow Up - Referral Referring Provider: Dr Janelle Lujan Time of Visit: 02.08.2018. 13:40 - 14:40 Referral setting: Home (Seen in home setting due to taxing and considerable effort required to leave the home due to limited mobility and being wheelchair bound secondary to R hip fracture s/p ORIF.) Referral Reason: R hip fracture / Pall Care - Information Sources Records reviewed: Previous records reviewed History/Review of Systems obtained from: Patient, Family Exam limitations: No limitations - History of Present Illness Update Brief HPI Update: - This is a delightful 87-year-old woman with cognitive delay deficits and a history of recurrent falls, hospitalized November 05- 2017, for an intertrochanteric fracture of right femur S/P ORIF. - Co-morbidities: HTN, chronic atrial fibrillation, CKD, cystitis, anemia, GERD , h/o seizures, h/o TIA or old CVA without residual deficits, macular degeneration, weakness, h/o falls and visits to ED. - [facility] and then discharged home around December 23, 2017 - Has PT and OT through [facility]. - She was evaluated for ST and it was not needed. - She has been stable with some progress in therapy. - No complaints of pain. "Stoic" is the description given by her family. - Sleeps well, has a good appetite. - Non-ambulatory with transfer issues. - Her caregiver, Edith, has some difficulties with safely transferring her at bath time and she has fallen twice. It may be related to her very short stature. There is concern for patient safety. - Twan, patient's great-nephew will talk with Edith (I offered to, he declined) . - We discussed alternative arrangements and suggested arranging the bathing schedule so Twan is taking care of the transfers in/out of shower, and Edith helping with the bathing itself. - Twan lives next door and his schedule permits him to be available. - Edith provides campground caretaker services 5-6 days/week about 7 hours daily. - She was campground caretaker for patient's sister prior to coming to work for the patient. - Mohs surgery: patient was scheduled for Mohs to remove basal cell cancer on scalp. - Surgery was cancelled because tumor is too large and they wouldn't be able to close the incision. - Alternate options are repeat freezing, and/or radiation therapy. They have opted for repeat freezing as the tumor grows. - Patient's weight is 104.4 lbs. She had previously reported 120 lbs. She reports her appetite has improved. - UTI is resolved after completion of Bactrim DS regimen. Social History - Living Situation Living arrangement: At home Living Situation: With family, With caregiver(s) Support System: -Patient lives home alone, but has consistent care giving help 5-6 days a week for about 7 hours a day. -In addition her great nephew, Twan, lives next door and is very involved with her care. -She has one son, Osvaldo, and a daughter who is . -She is , her at age 60. 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 Medications/Allergies - Medications Home Medications: Ambulatory Orders Medication Instructions Recorded Confirmed Lisinopril [Zestril] 40 mg PO DAILY 07/18/13 01/20/18 Metoprolol Tartrate [Lopressor] 50 mg PO BID 07/18/13 01/20/18 Clopidogrel [Plavix] 75 mg PO DAILY 01/02/16 01/20/18 Hydrochlorothiazide 25 mg PO DAILY 01/02/16 01/20/18 lamoTRIgine [LaMICtal] 100 mg PO BID 01/02/16 01/20/18 Amlodipine Besylate [Norvasc] 5 mg PO DAILY 11/08/17 01/20/18 Potassium Chloride 20 meq PO DAILY #5 packet 11/09/17 01/20/18 Sulfamethox/Trimeth 800/160 1 tab PO BID MDD for 7 days 01/20/18 01/20/18 [Bactrim Ds] - Allergies Allergies/Adverse Reactions: Allergies Allergy/AdvReac Type Severity Reaction Status Date / Time No Known Drug Allergies Allergy Verified 11/05/17 06:29 Review of Systems - Constitutional Constitutional: reports: Fatigue, Weakness, Weight loss (104.2 lbs on 02/08/18. Patient reports her previous baseline weight was 120 lbs. R bicep circumference was 22 cm on 01/20/18. She reports weight loss since hip fx, but denies more recent weight loss.). denies: Poor appetite - Ears, Nose & Throat Ears, Nose & Throat: reports: Hearing loss - Cardiovascular Cardiovascular: reports: Decr. exercise tolerance. denies: Chest pain, Edema - Respiratory Respiratory: reports: SOB at rest (occasionally). denies: SOB with exertion - Gastrointestinal Gastrointestinal: denies: Constipation - Genitourinary Genitourinary: reports: Incontinence, Nocturia. denies: Dysuria - Musculoskeletal Musculoskeletal: reports: Transfer issues (weak lower extremities, mostly non weight bearing, requires help for transfers.) - Psychiatric Psychiatric: denies: Behavior disturbances Physical Exam - Vital Signs Temperature: 96.7 F Pulse Rate: 67 O2 Saturation: 98 (room air) Blood Pressure: 117/54 - Physical Exam General Appearance: positive: No acute distress, Alert, Other (Marked kyphosis) Eyes Bilateral: positive: EOMI, No lid inflammation, Conjunctivae nml, No scleral icterus ENT: positive: No signs of dehydration Neck: positive: Trachea midline Cardiovascular: positive: Regular rate & rhythm, No murmur, No gallop Respiratory: positive: No respiratory distress, Diminished throughout. negative : Rales (no crackles) Skin: positive: Wound (Basal cell lesion on top of skull; not Mohs surgery candidate. Family will have it frozen off periodically) Extremities: positive: Pedal edema (1+) Neurologic/Psychiatric: positive: Oriented x3, Weakness Palliative Care - POLST POLST Status: DNR, Comfort Measures, Selective Treatment Pain: No pain (Family reports she is stoic) Sleep: Sleeps well - Palliative Care Discussion: - Patient has stated her goal is to remain home and to not return to [facility]. - When mentioning her wish to eventually at home not in hospital, she became teary. - She also became tearful about not being able to walk due to lower extremity weakness. - When asked if this was upsetting her, she responded yes. - We were not able to explore this idea further; her nephew Twan was present and immediately redirected the conversation, it appeared to be a pattern of avoiding sensitive topics. - If the patient is willing at the next visit, we can explore these reactions and emotions. - Patient had also requested that caregiver Edith not be at the visit, after Edith asked her directly. Afterwards Edith sought to speak to me alone and expressed her distress about this, feeling that she is being left out. Discussed patient's prerogative for medical privacy, HIPAA, etc. Impression and Recommendations - Palliative Care Impression: This is a delightful 87-year-old woman with cognitive deficits and history of recurrent falls and a recent hospitalization following an intertrochanteric fracture of right femur S/P ORIF. She is currently receiving physical and occupational therapy through [facility]. She remains weak and is unable to transfer independently or bear weight. Family requests ongoing oversight from the palliative care team. Patient would benefit from monitoring, with eventual transition to hospice when appropriate. Recommendations/Counseling Done: R femur fracture s/p ORIF: Patient denies pain. Continue PT and OT, making progress, goal is weight-bearing and patient's goal is mobility with walker. Tylenol for pain control. Family said they were going to discard the [place]. Dysphagia: GRAIN BLENDER evaluated patient and determined she did not require it. HTN: Stable, controlled on lisinopril, metoprolol, Hctz and amlodipine. BP today 117/54. Chronic atrial fibrillation: Stable, continue metoprolol for rate control, Plavix for anti-platelet activity. Advanced care planning: POLST is DNR and comfort care. Goal is to remain at home and out of SNF or long-term care. Family will make alterations in care giving logistics to keep patient safe in transfers to/from shower and dressing. Explore further at next visit the patient's emotions surrounding her physical debility and anticipatory grief about dying. Follow up visit: Tue 9, 13:30 [facility] Time Spent: 60 minutes were spent with more than 50% of the time spent on counseling, education, and coordination of care.
== END 2018-02-08 15:36 | disposition home or self-care (01) ==
LOC: PC 15:35
PROVIDERS: ATTEND Nurse Practitioner
DX: Z51.5 Encounter for palliative care (principal); S72.141D Displaced intertrochanteric fracture of right femur, subsequent encounter for closed fracture with routine healing; Z91.81 History of falling; I10 Essential (primary) hypertension; Z86.73 Personal history of transient ischemic attack (TIA), and cerebral infarction without residual deficits; E11.9 Type 2 diabetes mellitus without complications; Z66 Do not resuscitate; I48.2 Chronic atrial fibrillation; Z79.02 Long term (current) use of antithrombotics/antiplatelets; R53.1 Weakness; Z79.899 Other long term (current) drug therapy; Z87.440 Personal history of urinary (tract) infections
CPT/HCPCS: 99350

== ENCOUNTER 2018-02-17 08:00 | Outpatient (CLI) | payer MEDICARE, OTHER ==
[2018-02-17 13:56] LABS: BILIRUBIN,URINE NEGATIVE (NEGATIVE); GLUCOSE, URINE (UA) NEGATIVE (NEGATIVE); KETONES,URINE (UA) NEGATIVE (NEGATIVE); LEUKOCYTE ESTERASE, URINE NEGATIVE (NEGATIVE); NITRITE,URINE NEGATIVE (NEGATIVE); OCCULT BLOOD,URINE NEGATIVE (NEGATIVE); PH,URINE 6.5 PH (5.0-7.5); PROTEIN,URINE NEGATIVE (NEGATIVE); UROBILINOGEN,URINE 0.2 (NORMAL) E.U./dL (NORMAL)
[2018-02-17 13:59] LABS: CLARITY,URINE CLEAR (CLEAR)
== END 2018-02-17 08:01 | disposition home or self-care (01) ==
LOC: LAB.R 08:00
PROVIDERS: ATTEND Nurse Practitioner
DX: N39.0 Urinary tract infection, site not specified (principal)
CPT/HCPCS: 81001; 81003; 87086

== ENCOUNTER 2018-02-17 14:00 | Outpatient (CLI) | payer MEDICARE, OTHER ==
--- NOTE | 2018-02-18 06:50 | XRAY Report ---
TWO-VIEW CHEST: 02/17/2018 CLINICAL INDICATION: Pneumonia follow up. COMPARISON: 11/06/2017 FINDINGS: Frontal and lateral views of the chest demonstrate a mildly enlarged cardiac silhouette. The lungs are now clear. Previously seen left basilar airspace disease has resolved. No effusion or pneumothorax is present. Old, healed rib fractures are noted. IMPRESSION 1. MILD CARDIOMEGALY. 2. RESOLUTION OF PREVIOUSLY SEEN LEFT BASILAR AIRSPACE DISEASE. 3. NO EVIDENCE OF ACUTE CARDIOPULMONARY DISEASE. TD: 02/18/2018 06:49
== END 2018-02-17 14:01 | disposition home or self-care (01) ==
LOC: DI 14:00
PROVIDERS: ATTEND Nurse Practitioner
DX: I51.7 Cardiomegaly (principal)
CPT/HCPCS: 71046

== ENCOUNTER 2018-02-17 14:13 | Outpatient (CLI) | payer MEDICARE, OTHER ==
--- NOTE | 2018-02-18 12:39 | XRAY Report ---
THREE-VIEW LEFT FOOT: 02/17/2018 CLINICAL INDICATION: Pain. FINDINGS: AP, lateral, oblique views of the left foot demonstrate mild osteoarthritis. There are subacute fractures of the distal shafts of the second and third toes proximal phalanges without evidence of intraarticular extension. No radiopaque foreign body is seen in the soft tissues. IMPRESSION: SUBACUTE FRACTURES OF THE PROXIMAL PHALANGES OF THE LEFT SECOND AND THIRD TOES. TD: 02/18/2018 12:38
--- NOTE | 2018-02-18 12:39 | XRAY Report ---
THREE VIEW LEFT ANKLE: 02/17/2018 CLINICAL INDICATION: Pain. FINDINGS: AP, lateral, oblique views of the left ankle demonstrate sideplate and screw fixation of the fibula and screw fixation of the medial malleolus. Mild osteoarthritic changes are present. There is no evidence of acute fracture. No effusion is seen. IMPRESSION: PREVIOUS ANKLE ORIF. TD: 02/18/2018 12:38
== END 2018-02-17 14:14 | disposition home or self-care (01) ==
LOC: DI 14:13
PROVIDERS: ATTEND Internal Medicine
DX: S92.512A Displaced fracture of proximal phalanx of left lesser toe(s), initial encounter for closed fracture (principal); I51.7 Cardiomegaly; N39.0 Urinary tract infection, site not specified
CPT/HCPCS: 71046; 81003

== ENCOUNTER 2018-02-17 15:57 | Outpatient (CLI) | payer MEDICARE, OTHER ==
--- NOTE | 2018-02-17 16:32 | CONSULTATION NOTE ---
Palliative Care Follow Up - Referral Referring Provider: Dr Janelle Lujan Time of Visit: 02/17/2018. 12:30 -13:10 Referral setting: Home (Seen in home setting due to taxing and considerable effort required to leave the home due to limited mobility and being wheelchair- bound, secondary to right hip fracture S/P ORIF.) Referral Reason: Acute altered mental status, behavior changes - Information Sources Records reviewed: Previous records reviewed History/Review of Systems obtained from: Patient, Family, Caregiver Exam limitations: No limitations - History of Present Illness Update Brief HPI Update: -This is a delightful 87-year-old woman with cognitive delay deficits and history of recurrent falls, hospitalized November 05-2017, for an intertrochanteric fracture of right femur S/P ORIF. 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 -[facility] then discharged home around December 23, 2017. -Has PT and OT through [facility]. -She was evaluated for ST and it was not needed. -Family reported sudden acute change in mental status x 2 days and grandnephew requested palliative care come to assess patient. - She is displaying sudden paranoid behavior, aggression and striking out at family members and caregiver, believing the family is trying to defraud her of money, shouting out the front door that she is being hurt, etc. -This is interspersed with periods of calm behavior, or giving the family the "silent treatment." -Patient was treated for UTI in the latter part of December 2017 with Bactrim DS. -During today's assessment of patient, she is lying in bed and appears weak. She is appropriately responsive, denies chest pain, urinary pain, but does say she is not feeling well. She is cooperative and docile. -No signs of respiratory distress, lung sounds are diminished. -Obtained a clean-catch urine sample for UA with C&S -Ordered a chest x-ray, AP and lateral. -Chest x-ray is negative for current pneumonia. It showed resolution of previously seen left basilar infiltrate from 11/06/17. -Urinalysis is still pending at time of writing this note, which is Tuesday afternoon. Social History - Living Situation Living arrangement: At home Support System: Patient Lives home alone, but has consistent caregiving help 5-6 days a week for about 7 hours a day with paid caregiver. -In addition her great nephew, Twan, lives next door and is very involved with her care. -She has 1 son, Osvaldo, and a daughter who is . -She is , her at age 60. 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 She is a [place] of [employer]. Medications/Allergies - Medications Home Medications: Ambulatory Orders Medication Instructions Recorded Confirmed Lisinopril [Zestril] 40 mg PO DAILY 07/18/13 01/20/18 Metoprolol Tartrate [Lopressor] 50 mg PO BID 07/18/13 01/20/18 Clopidogrel [Plavix] 75 mg PO DAILY 01/02/16 01/20/18 Hydrochlorothiazide 25 mg PO DAILY 01/02/16 01/20/18 lamoTRIgine [LaMICtal] 100 mg PO BID 01/02/16 01/20/18 Amlodipine Besylate [Norvasc] 5 mg PO DAILY 11/08/17 01/20/18 Potassium Chloride 20 meq PO DAILY #5 packet 11/09/17 01/20/18 - Allergies Allergies/Adverse Reactions: Allergies Allergy/AdvReac Type Severity Reaction Status Date / Time No Known Drug Allergies Allergy Verified 11/05/17 06:29 Review of Systems - Constitutional Constitutional: reports: Fatigue, Weakness, Weight loss (104.2 lbs 02/08/18. Previou sbaseline weight was 120 lbs. R bicep circumference 22cm on 01/20/18.). denies: Fever, Poor appetite, Diaphoresis - Cardiovascular Cardiovascular: reports: Decr. exercise tolerance. denies: Chest pain - Respiratory Respiratory: denies: Cough, Wheezing, SOB at rest - Gastrointestinal Gastrointestinal: denies: Abdominal pain - Genitourinary Genitourinary: denies: Dysuria - Musculoskeletal Musculoskeletal: reports: Assistive devices (wheelchair), Transfer issues (1 person assist due to weak lower extremities, mostly non-weight bearing) - Psychiatric Psychiatric: reports: Anxiety, Delusions, Behavior disturbances, Other (acute change of mental status) - Other Findings Other Findings: Targeted ROS Physical Exam - Vital Signs Temperature: 96.8 F Pulse Rate: 76 O2 Saturation: 95 Blood Pressure: 190/80 (regular BP cuff) - Physical Exam General Appearance: positive: No acute distress, Lethargic Eyes Bilateral: positive: No lid inflammation ENT: positive: No signs of dehydration Neck: positive: No JVD, Trachea midline Cardiovascular: positive: Regular rate & rhythm Respiratory: positive: No respiratory distress, Diminished throughout Extremities: positive: Pedal edema (1+) Neurologic/Psychiatric: positive: Oriented x3, Weakness, Flat affect Palliative Care - POLST POLST Status: DNR, Selective Treatment Impression and Recommendations - Palliative Care Impression: This is a delightful 87-year-old woman with cognitive deficits and history of recurrent falls and recent hospitalization due to an intertrochanteric fracture of right femur S/P ORIF. She currently receives physical and occupational therapy through [facility]. She is very weak in the lower extremities, requiring assistance for all transfers. She is experiencing acute mental status alteration x 2 days with increased aggression, delusional thoughts, yelling out, and aggressive behaviors , interspersed with periods of calm and quiet. Urinalysis was run, a chest x- ray came back negative for pneumonia. Results of UA still pending. Recommendations/Counseling Done: Acute mental status changes: Checking for infection. Chest xray negative for pneumonia. It reveals resolution of previously seen left basilar infiltrate fro 11/06/17. UA C&S is pending (it is Tuesday afternoon). Results will be faxed to palliative care and Dr Lujan's office, the PCP. She may not be able to get to it Tuesday. Discussed with nurse Hammonds in PCP's office with decision not to start empiric antibiotic. The grandnephew has brought in several urine samples over the past few weeks, they have all been negative. today's sample was pale yellow without foul odor. Can discuss with family option of starting a medication like seroquel, or lorazepam. Will consult with PCP. Advanced care planning: No updates. Goal is comfort and to keep patient at home and out of SNF or long-term care. Explore further at next visit the patient 's emotions surround her physical debility and anticipatory grief about dying. Follow up next week. Next scheduled follow up visit is TueMarch 08, 13:30. Time Spent: 40 minutes were spent with more than 50% of the time spent on counseling, education, and coordination of care.
== END 2018-02-17 15:58 | disposition home or self-care (01) ==
LOC: PC 15:57
PROVIDERS: ATTEND Nurse Practitioner
DX: Z51.5 Encounter for palliative care (principal); R41.82 Altered mental status, unspecified; F91.9 Conduct disorder, unspecified; I10 Essential (primary) hypertension; I48.2 Chronic atrial fibrillation; Z79.02 Long term (current) use of antithrombotics/antiplatelets; Z91.81 History of falling; Z96.641 Presence of right artificial hip joint; Z99.3 Dependence on wheelchair; Z66 Do not resuscitate
CPT/HCPCS: 99349

== ENCOUNTER 2018-03-08 13:45 | Outpatient (CLI) | payer MEDICARE, OTHER ==
--- NOTE | 2018-03-08 17:20 | CONSULTATION NOTE ---
Palliative Care Follow Up - Referral Referring Provider: Dr Lujan Time of Visit: 03/08/2018. 13:45 - 14:30 Referral setting: Home (Seen in home setting due to taxing and considerable effort required to leave the home due to limited mobility and being wheelchair- bound, secondary to debility following R hip fracture s/p ORIF.) Referral Reason: Dementia with behaviors - Information Sources Records reviewed: Previous records reviewed History/Review of Systems obtained from: Patient, Family, Caregiver Exam limitations: Clinical condition (Dementia with cognitivie deficits, confabulation) - History of Present Illness Update Brief HPI Update: -A delightful 87-year-old woman with cognitive deficits and history of recurrent falls, hospitalized November 05-2017, for an intertrochanteric fracture of right femur S/P ORIF. 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 -[facility], then discharged home around December 23, 2017. -Continues with PT and OT through [facility]. -She was evaluated for ST and it was not needed. -She has episodes of acute psychotic behaviors -- paranoia, visual hallucinations, verbal aggressiveness. Family requested a visit during a recent episode, on February 17. -She continues to have sporadic episodes. I discussed this with her grand nephew , Twan, and suggested using haloperidol PRN. He is familiar with its usage, he administered it with his grandfather and grandmother. -I spoke with Osvaldo (son, DPNAVEED) who also agreed with a PRN medication to help calm patient during episodes. -Today patient is calm, does exhibit some confusion and confabulation. I note a decline in her cognition since my initial visit in December 2017. -Family has also noted a decrease in functionality. -Caregiver reports she does not sleep well; she has reverse circadian rhythm: sleeping during day and wakefulness at night. -Patient is still participating in PT, OT with [facility] but perceives she is not making progress. -She is disappointed that she is still unable to stand up. -I provided anticipatory guidance about the possibility of not returning to her previous baseline. -She reports pain is well controlled. She also states the tearfulness she exhibited at a previous visit has been resolved; she doesn't like when "people keep things from her" but "it's ok now." -Dermatology consultation yesterday for lesion on L wrist; biopsy taken. She also has basal cell cancer lesion on the top of her skull, treating it with freezing. It was not appropriate for Mohs surgery. Social History - Living Situation Living arrangement: At home Living Situation: Alone, With caregiver(s) Support System: Twan, great-nephew, lives next door. Edith the caregiver is there 5-6 days/week for 7hr a day. She is , her at age 60. 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 Medications/Allergies - Medications Home Medications: Ambulatory Orders Medication Instructions Recorded Confirmed Lisinopril [Zestril] 40 mg PO DAILY 07/18/13 01/20/18 Metoprolol Tartrate [Lopressor] 50 mg PO BID 07/18/13 01/20/18 Clopidogrel [Plavix] 75 mg PO DAILY 01/02/16 01/20/18 Hydrochlorothiazide 25 mg PO DAILY 01/02/16 01/20/18 lamoTRIgine [LaMICtal] 100 mg PO BID 01/02/16 01/20/18 Amlodipine Besylate [Norvasc] 5 mg PO DAILY 11/08/17 01/20/18 Potassium Chloride 20 meq PO DAILY #5 packet 11/09/17 01/20/18 Haloperidol Lactate [Haloperidol 0.5 ml PO BID PRN MDD 2mg/mL. 03/08/18 03/08/18 Lactate (Oral soln bottle)] 1mg/0.5mL - Allergies Allergies/Adverse Reactions: Allergies Allergy/AdvReac Type Severity Reaction Status Date / Time No Known Drug Allergies Allergy Verified 11/05/17 06:29 Review of Systems - Constitutional Constitutional: reports: Weight loss (104.2 lbs on 02/08/18. Previous baseline was 120 lbs. Previous to her CVA 5+ years ago she weighed 140-150 lbs. R bicep arm circumference is 22 cm.), Weight stable - Eyes Eyes: reports: Vision loss - Ears, Nose & Throat Ears, Nose & Throat: reports: Hearing loss - Cardiovascular Cardiovascular: reports: Decr. exercise tolerance. denies: Chest pain - Respiratory Respiratory: denies: Cough, SOB at rest - Gastrointestinal Gastrointestinal: reports: Reflux/heartburn. denies: Constipation - Genitourinary Genitourinary: denies: Dysuria - Musculoskeletal Musculoskeletal: reports: Muscle weakness, Assistive devices (wheelchair; unable to stand or use walker), Transfer issues - Psychiatric Psychiatric: reports: Hallucinations, Aggitation, Behavior disturbances ( episodic) - Hematologic/Lymphatic Hematologic/Lymphatic: reports: Anemia Physical Exam - Vital Signs Temperature: 96.2 F Pulse Rate: 75 O2 Saturation: 97 (room air) Blood Pressure: 108/63 (wrist cuff) - Physical Exam General Appearance: positive: No acute distress, Alert, Other (Kyphosis) Eyes Bilateral: positive: EOMI, No lid inflammation, Conjunctivae nml, No scleral icterus ENT: positive: No signs of dehydration, Other (poor dentition) Neck: positive: No JVD, Trachea midline Cardiovascular: positive: Regular rate & rhythm, No murmur, No gallop Respiratory: positive: No respiratory distress, Breath sounds nml. negative: Rales Skin: positive: Wound (wound from recent biopsy of lesion of L wrist.) Palliative Care - POLST Patient has POLST: Yes POLST Status: DNR, Selective Treatment Pain: No pain Anorexia: Mild (1-3) Sleep: Sleeps poorly - Palliative Care Discussion: Patient is having periodic episodes of paranoia, agitation and hallucinations. I spoke with both Osvaldo, the son, and Twan, the great-nephew who lives next door and provides oversight and caregiving. They were both in agreement to initiate medication on an "as needed" basis for her periods of agitation. We weighed benefits and burdens, discussing side effects. Twan is familiar with haldoperidol from taking care of both his grandparents. I provided a 1 ml syringe and demonstrated. Patient's goal continues to be to remain in her home. She does not want to return to [facility] or any nursing facility. Impression and Recommendations - Palliative Care Impression: This is an [place] 87-year-old woman with increasing cognitive deficits, confusion, and decline in functionality following a fracture of her right femur S/P ORIF. She has episodes of agitated and paranoid behavior and could benefit from pharmacological management of these behaviors. Recommendations/Counseling Done: Dementia with behaviors: Increasing confusion, confabulation, and agitation with paranoia. Start haloperidol solution 2mg/mL, take 0.5ml (1mg) PO BID as needed. Instructed family to call if tremors, increased agitation, or over sedation. Failure to thrive: 104.2 lbs on 02/08/18, previous baseline was 120 lbs, and 5 years ago, before her CVA, she weighed 140-150 lbs. Monitor progress. Recommend nutritional supplements to family. R femur fracture S/P ORIF: Denies pain, uses Tylenol as needed for pain. Continuing with [facility] for PT and OT therapy, not much progress. Remains wheelchair bound, non-weight bearing, and requires assistance with transfers, showers, ADLs. Follow up visit: May 09, 13:30 Time Spent: 45 minutes were spent with more than 50% of the time spent on counseling, education, and coordination of care.
== END 2018-03-08 13:46 | disposition home or self-care (01) ==
LOC: PC 13:45
PROVIDERS: ATTEND Nurse Practitioner
DX: Z51.5 Encounter for palliative care (principal); F03.91 Unspecified dementia, unspecified severity, with behavioral disturbance; R62.7 Adult failure to thrive; S72.141D Displaced intertrochanteric fracture of right femur, subsequent encounter for closed fracture with routine healing; E11.22 Type 2 diabetes mellitus with diabetic chronic kidney disease; I12.9 Hypertensive chronic kidney disease with stage 1 through stage 4 chronic kidney disease, or unspecified chronic kidney disease; N18.9 Chronic kidney disease, unspecified; Z91.81 History of falling; Z99.3 Dependence on wheelchair; Z86.73 Personal history of transient ischemic attack (TIA), and cerebral infarction without residual deficits; Z66 Do not resuscitate
CPT/HCPCS: 99349

== ENCOUNTER 2018-05-09 17:27 | Outpatient (CLI) | payer MEDICARE, OTHER ==
--- NOTE | 2018-05-09 17:54 | CONSULTATION NOTE ---
Palliative Care Follow Up - Referral Referring Provider: Dr Lujan. Time of Visit: 05/09/2018. 13:30 - 14:15 Referral setting: Home (Seen in home setting due to taxing and considerable effort required to leave the home due to limited mobility and being wheelchair- bound, secondary to debility following right hip fracture S/P ORIF.) Referral Reason: Debility following hip fracture - Information Sources Records reviewed: Previous records reviewed History/Review of Systems obtained from: Patient, Family, Caregiver Exam limitations: Clinical condition (dementia with cognitive deficits) - History of Present Illness Update Brief HPI Update: [id number] for Outpatient Physical Therapy Patient has poor postural balance and significant lower-extremity weakness and debility following a R hip fracture s/p ORIF. She would benefit from evaluation and treatment by outpatient Physical Therapy for safety and strengthening for a Home Exercise Program (HEP). -Frail 87-year-old woman with cognitive defect deficits and intertrochanteric fracture of the right femur s/p ORIF in October 2017. 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 -After her hip fracture she was at [facility] for rehabilitation, discharging home in December 2017 and having home PT and OT therapy through [facility]. -She was discharged from [facility] around April 13 due to benefits expiring. -Manager Sales Training and son/DPOA report that the patient has had no recent episodes of confusion or paranoid behaviors since a period back in January and February 2018. At that time I started haloperidol as needed. -Patient reports no concerns or questions, but repeatedly says she is upset with herself for not being able to "fix this," meaning that she can no longer ambulate since the hip fracture. -Edith, the caregiver, reports that she continues to exercise her 3x/day, taking her on a walk in the wheelchair, and that they usually get outside daily in this good weather. She also occasionally gets out on car ride. [place] has a stop a short walk from their house; Edith the caregiver will follow up. -Episodic constipation, caregiver manually disimpacted her recently; had docusate for a stool softener. -Patient denies fatigue and pain, but does take 1-2 Tylenol in the evening to relieve pain and help her sleep. Social History - Living Situation Living arrangement: At home Living Situation: With caregiver(s) Support System: Twan Rothman, her great-nephew, lives next door and is very supportive and involved in her care. Edith the caregiver works 5-6 days/week about 7 hrs /day. Her son/RENE Tijerina lives in the [facility]. Medications/Allergies - Medications Home Medications: Ambulatory Orders Medication Instructions Recorded Confirmed Lisinopril [Zestril] 40 mg PO DAILY 07/18/13 05/09/18 Metoprolol Tartrate [Lopressor] 50 mg PO BID 07/18/13 05/09/18 Clopidogrel [Plavix] 75 mg PO DAILY 01/02/16 05/09/18 Hydrochlorothiazide 25 mg PO DAILY 01/02/16 05/09/18 lamoTRIgine [LaMICtal] 100 mg PO BID 01/02/16 05/09/18 Amlodipine Besylate [Norvasc] 5 mg PO DAILY 11/08/17 05/09/18 Potassium Chloride 20 meq PO DAILY #5 packet 11/09/17 01/20/18 Haloperidol Lactate [Haloperidol 0.5 ml PO BID PRN MDD 2mg/mL. 03/08/18 05/09/18 Lactate (Oral soln bottle)] 1mg/0.5mL Acetaminophen 500 - 1,000 mg PO Q8H PRN 05/09/18 05/09/18 - Allergies Allergies/Adverse Reactions: Allergies Allergy/AdvReac Type Severity Reaction Status Date / Time No Known Drug Allergies Allergy Verified 11/05/17 06:29 Review of Systems - Constitutional Constitutional: reports: Other (Unable to weigh the patient. L bicep arm circumference today is 25.5cm. R bicep arm circumference was 22 cm on 03/08/18. Her last weight was 104.2 lbs on 02/08/18, previous baseline was 120 lbs. Prior to her CVA 5+ years ago, she weighed 140-150 lbs.). denies: Fatigue, Poor appetite - Eyes Eyes: reports: Vision loss - Ears, Nose & Throat Ears, Nose & Throat: reports: Hearing loss, Dental decay (poor dental hygiene; dicolored lower front teeth) - Cardiovascular Cardiovascular: reports: Decr. exercise tolerance. denies: Chest pain, Edema - Respiratory Respiratory: denies: SOB at rest - Gastrointestinal Gastrointestinal: denies: Abdominal pain, Poor appetite - Genitourinary Genitourinary: denies: Dysuria, Incontinence (occasional accidents at night) - Musculoskeletal Musculoskeletal: reports: Limited range of motion, Assistive devices ( wheelchair bound) - Integumentary Integumentary: reports: Dryness - Neurological Neurological: reports: General weakness, Memory problems - Psychiatric Psychiatric: reports: Behavior disturbances (history of paranoid behavior a few months ago, improved) Physical Exam - Vital Signs Temperature: 95.9 F Pulse Rate: 67 O2 Saturation: 98 (room air) Blood Pressure: 118/69 (wrist cuff) - Physical Exam General Appearance: positive: No acute distress, Alert, Other (kyphosis) Eyes Bilateral: positive: No lid inflammation, No scleral icterus ENT: positive: No signs of dehydration Neck: positive: Trachea midline Cardiovascular: positive: Regular rate & rhythm, No murmur Respiratory: positive: Chest non-tender, No respiratory distress, Breath sounds nml, Diminished throughout Abdomen: positive: Non-tender, Soft Skin: positive: No symptoms Extremities: positive: No pedal edema, Other (cold hands and feet) Neurologic/Psychiatric: positive: Mood/affect nml, Disoriented to time Palliative Care - POLST Patient has POLST: Yes POLST Status: DNR, Selective Treatment Pain: Pain improved, Location (R hip) Tiredness/Fatigue: None Drowsiness/Sedation: None Nausea: None Anxiety: None Anorexia: None Sleep: Sleeps well Constipation: No Performance Status: Requires assistance for all transfers; wheelchair bound, too weak to ambulate or stand independently. Mostly continent, with the occasional nighttime accident. - Palliative Care Discussion: Patient was discharged from [facility] last month due to running out of benefits. Patient voices discontent about not being able to ambulate. The [facility] electrician manager had suggested she may want to pursue outpatient PT for strengthening. I discussed this with her son Osvaldo Tijerina. He has not pursued it but would be interested if I made a referral. Edith the caregiver did some research into paratransit, and learned that they won't come into her street, but there is a drop-off/pickup point a short, walkable distance away from the house. Edith to follow up. Impression and Recommendations - Palliative Care Impression: This is a frail 87-year-old woman with steady decline over the past 6 months. Her episodes of paranoia and behaviors have improved since February. She remains weak and wheelchair bound. I am referring her to outpatient PT for evaluation and treatment for strengthening and possibly a home exercise program. Recommendations/Counseling Done: Dementia with behaviors: Improved, no reported agitation or paranoia for the past tow months. On previously prescribed haloperidol solution 2mg/mL, take 0.5mL (1mg) twice daily as needed. Continue supportive care. Constipation: Edith reported hard stool and she had to disimpact. She had docusate. I recommended Miralax and Senna instead, educated her on using Miralax daily rather than PRN, holding 1 day if needed for loose stools, then adjusting dosage as needed (full dose, half dose, quarter dose). Also senna for stimulating GI tract. Atrial fibrillation: On clopidogrel to prevent thrombotic event; metoprolol for rate control. HTN: BP today 118/69. Continue lisinopril, metroprolol, Hctz and amlodipine. R femur fracture s/p ORIF: Pain improved. Continue Tylenol 500mg 1-2tabs at night for pain as needed. [facility] discharged patient last month due to exhaustion of benefits. Referring her to outpatient physical therapy for evaluation and treatment for strengthening and a home exercise program. Advanced care planning: No changes. POLST is DNR and selective treatment. Son/ DPOA is supportive of physical therapy. Follow up with Osvaldo regarding outpatient physical therapy referral. Next visit 07/11/18 at 11:00 Time Spent: 45 minutes were spent with more than 50% of the time spent on counseling, education, and coordination of care.
== END 2018-05-09 17:28 | disposition home or self-care (01) ==
LOC: PC 17:27
PROVIDERS: ATTEND Nurse Practitioner
DX: Z51.5 Encounter for palliative care (principal); F03.91 Unspecified dementia, unspecified severity, with behavioral disturbance; K59.00 Constipation, unspecified; I48.2 Chronic atrial fibrillation; I12.9 Hypertensive chronic kidney disease with stage 1 through stage 4 chronic kidney disease, or unspecified chronic kidney disease; E11.22 Type 2 diabetes mellitus with diabetic chronic kidney disease; N18.9 Chronic kidney disease, unspecified; R53.1 Weakness; R53.81 Other malaise; Z99.3 Dependence on wheelchair; Z86.73 Personal history of transient ischemic attack (TIA), and cerebral infarction without residual deficits; Z91.81 History of falling; Z79.899 Other long term (current) drug therapy; Z79.02 Long term (current) use of antithrombotics/antiplatelets; Z66 Do not resuscitate; Z87.81 Personal history of (healed) traumatic fracture
CPT/HCPCS: 99349

== ENCOUNTER 2018-07-11 15:45 | Outpatient (CLI) | payer MEDICARE, OTHER ==
--- NOTE | 2018-07-11 16:09 | CONSULTATION NOTE ---
Palliative Care Follow Up - Referral Referring Provider: Dr Lujan Time of Visit: 07/11/2018. 11:15 - 11:55 Referral setting: Home (Seen in home setting due to taxing and considerable effort required to leave the home due to limited mobility, being wheelchair- bound, and debility following right hip fracture S/P ORIF.) Referral Reason: Debility - Information Sources Records reviewed: Previous records reviewed History/Review of Systems obtained from: Patient, Family Exam limitations: Clinical condition (dementia with cognitive deficits; tearfulness) - History of Present Illness Update Brief HPI Update: -Frail 87-year-old woman with cognitive defect deficits and general decline in cognition and functionality since intertrochanteric fracture of the right femur s/p ORIF in October 2017. 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 -After rehabilitation at [facility] she discharged home in December 2017 with home health PT and OT therapy through [facility]. -She was discharged from [facility] around April 13 due to benefits expiring. -She was then referred to outpatient PT in April 2018, and has been discharged due to lack of progress. Twan her grand-nephew and caregiver says she did go for awhile but it didn't make any difference. -The patient becomes easily tearful at loss of her function, mobility and ability to walk. -She recognizes she is "ning" and should be happy, but is easily distressed when she thinks about there being no possibiity of ever being able to walk again due to weakness and debility. -Her grand-nephew, Twan, reports she has a good appetite. Also various family members come over daily for dinner, and -She has rare occurrences of B/B incontinence. -She has increased cognitive deficits and her sleeping pattern has changed. She sleepsfor an hour or so at a time, throughout the day and throughout the night too. Social History - Living Situation Living arrangement: At home Living Situation: With family, With caregiver(s) Support System: Patient has a home a family member, wTan, who lives on her property and keeps close eye on her. He sleeps in a trailer and has a walkie-talkie system so he is aware of any movement or waking she makes during the night. Edith, her longtime caregiver, also works 5-6 days a week about 7 hours/day. Her son/DPOA, Osvaldo Tijerina, lives in [facility] and visits her regularly. She also has numerous family members in the area who are socialize with her regularly, often at dinnertime. Medications/Allergies - Medications Home Medications: Ambulatory Orders Medication Instructions Recorded Confirmed Lisinopril [Zestril] 40 mg PO DAILY 07/18/13 07/11/18 Metoprolol Tartrate [Lopressor] 50 mg PO BID 07/18/13 07/11/18 Clopidogrel [Plavix] 75 mg PO DAILY 01/02/16 07/11/18 Hydrochlorothiazide 25 mg PO DAILY 01/02/16 07/11/18 lamoTRIgine [LaMICtal] 100 mg PO BID 01/02/16 07/11/18 Amlodipine Besylate [Norvasc] 5 mg PO DAILY 11/08/17 05/09/18 Potassium Chloride 20 meq PO DAILY #5 packet 11/09/17 01/20/18 Haloperidol Lactate [Haloperidol 0.5 ml PO BID PRN MDD 2mg/mL. 03/08/18 07/11/18 Lactate (Oral soln bottle)] 1mg/0.5mL Acetaminophen 500 - 1,000 mg PO Q8H PRN 05/09/18 07/11/18 - Allergies Allergies/Adverse Reactions: Allergies Allergy/AdvReac Type Severity Reaction Status Date / Time No Known Drug Allergies Allergy Verified 11/05/17 06:29 Review of Systems - Constitutional Constitutional: reports: Weakness, Weight loss (Weight today is 97.2 lbs. Previous weight was 104.2 lbs on 02/08/18. L bicep is 22cm today. L bicep 05/09/18 was 25.5 cm. R bicep was 22cm on 03/08/18.). denies: Poor appetite - Eyes Eyes: reports: Vision loss - Ears, Nose & Throat Ears, Nose & Throat: reports: Dental decay (poordental hygiene; discolored lower front teeth) - Cardiovascular Cardiovascular: reports: Decr. exercise tolerance. denies: Edema - Respiratory Respiratory: denies: SOB at rest - Gastrointestinal Gastrointestinal: reports: Good appetite. denies: Constipation - Genitourinary Genitourinary: reports: Incontinence (mostly continent, but occasionally incontinent of bowel and bladder) - Musculoskeletal Musculoskeletal: reports: Muscle weakness (lower extremities), Assistive devices (wheelchair bound), Transfer issues (requires assistance), Other (denies pain) - Neurological Neurological: reports: General weakness, Memory problems - Psychiatric Psychiatric: reports: Behavior disturbances (history of paranoia), Other (occasional confusion) Physical Exam - Vital Signs Temperature: 96.5 F Pulse Rate: 72 O2 Saturation: 99 (room air) Blood Pressure: 125/77 (wrist cuff) - Physical Exam General Appearance: positive: No acute distress, Alert Eyes Bilateral: positive: Conjunctivae nml, No scleral icterus ENT: positive: No signs of dehydration, Other (kyphosis) Cardiovascular: positive: Regular rate & rhythm, No murmur, No gallop Respiratory: positive: No respiratory distress, Diminished throughout. negative: Wheezes, Rales Skin: positive: Dryness Extremities: positive: No pedal edema Neurologic/Psychiatric: positive: Oriented x3, Other (easily tearful today) Palliative Care - POLST Patient has POLST: Yes POLST Status: DNR, Selective Treatment Pain: No pain ( no complaints of pain) Depression: Mild (1-3) Performance Status: wheelchair bound, requires help with all transfers. appetite stable continent most of time with occasional incontinence of B/B - Palliative Care Discussion: Patient's main struggle is acceptance of being wheelchair-bound. She is having a hard time accepting that there "is no hope" of her ever walking again. She had SNF rehab, Home Health rehab, and outpatient rehab and remains too weak to stand or transfer on her own. She is easily moved to tears every time she thinks about what she has lost, and how she lives her life now. "I can't do anything, I can't go anywhere." We did discuss having Twan take her on outings in the car, as well as getting her out of the house more often, pushing her in the wheelchair around the garden, or having her get some air out on the deck. She used to go down to the beach behind her house, pick koch in her garden, go outside and enjoy the sunshine, and also go out various outings. The family is still able to take her out in the car, and Twan speaks of the little outings they could go on. Also her family is very supportive and they usually have at least one family member coming over for dinner every night, which has just started since she has been wheelchair-bound. Twan's dad and son come over, as does his sister who just relocated to [facility] from [place], a cousin who lives across the street, and Osvaldo, her son, also comes over. The patient says she knows she is "ning" she lives at home, has family who takes care of her, etc, but always ends these statements with, "but....." We discussed antidepressant medication and doing a trial to see if this would help her mood. The patient says she has never tried "anything like that" and does not want to start at this time. Twan is an attentive caregiver. He sleeps in his trailer just outside her bedroom and keeps a walkie-talkie on so he is aware of her movements at all times. The patient's sleep pattern has changed and she takes short naps throughout the day and the night. Twan reports this is not an issue, "I'm used to it," since he was also caregiver to his mother (the patient's sister) prior to her , and she followed a similar pattern. She was a Hospice patient at end of life, Twan knows and is known to the Hospice team, and is supportive of transitioning the patient to Hospice when she meets criteria. Impression and Recommendations - Palliative Care Impression: This is a frail 87-year-old woman with steady decline since fracturing her R femur in October 2017. She is struggling with sadness about the loss of her independence and mobility and has difficulty accepting being wheelchair bound. She had PT at [facility], with [facility], and finally as an outpatient, being discharged for lack of progress. Palliative care will continue to provide oversight and monitoring, with transition to Hospice when criteria are met. Recommendations/Counseling Done: Dementia with behaviors: Stable, no reported agitation or paranoia for the past tow months. Continue haloperidol solution 2mg/mL, take 0.5mL (1mg) twice daily as needed. Continue supportive care. Constipation: Controlled with Miralax and Senna Atrial fibrillation: On clopidogrel to prevent thrombotic event; metoprolol for rate control. HTN: Stable, 125/77 today Continue lisinopril, metroprolol, Hctz. R femur fracture s/p ORIF: No complaints of pain. Tylenol 500mg 1-2tabs at night for pain as needed. She is no longer on outpaitnet physical therapy due to nonprogress. Advanced care planning: No changes. DNR and selective treatment. Transition on Hospice when criteria are met Next visit 09/05/18 at 10:00 and as needed. Time Spent: 40 minutes were spent with more than 50% of the time spent on counseling, education, and coordination of care.
== END 2018-07-11 15:46 | disposition home or self-care (01) ==
LOC: PC 15:45
PROVIDERS: ATTEND Nurse Practitioner
DX: Z51.5 Encounter for palliative care (principal); F03.91 Unspecified dementia, unspecified severity, with behavioral disturbance; Z99.3 Dependence on wheelchair; R53.81 Other malaise; R41.81 Age-related cognitive decline; N18.9 Chronic kidney disease, unspecified; R56.9 Unspecified convulsions; Z86.73 Personal history of transient ischemic attack (TIA), and cerebral infarction without residual deficits; M62.81 Muscle weakness (generalized); Z66 Do not resuscitate
CPT/HCPCS: 99349

== ENCOUNTER 2018-08-23 11:50 | Outpatient (CLI) | payer MEDICARE, OTHER ==
--- NOTE | 2018-08-23 13:26 | CONSULTATION NOTE ---
Palliative Care Follow Up - Referral Referring Provider: Dr Janelle Lujan Time of Visit: 08/23/2018. 11:50 -12:35 Referral setting: Home (Seen in home setting due to taxing and considerable effort required to leave the home due to limited mobility, being checked wheelch air-bound, and debility following right hip fracture S/P ORIF.) Referral Reason: Change of LOC / Malnutrition - Information Sources History/Review of Systems obtained from: Patient, Family, Caregiver Exam limitations: Clinical condition (dementia with cognitive deficits) - History of Present Illness Update Brief HPI Update: -Very frail 87-year-old woman with cognitive defect deficits and general decline in cognition and functionality since intertrochanteric fracture of the right femur s/p ORIF in October 2017. 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 -Patient's nephew called to report that over the past few days she has had a sudden change of condition and level of consciousness change. -She has been sleeping continually and not accepting much food. -Over the past weeks she has been eating less and less, with concurrent weight loss. -Family and caregiver note increased problems with eating and swallowing. -Palliative care COUNTER INTELLIGENCE TECHNICIAN visited today, at which time the patient had woken up for the first time in about 2 days and was able to sit up in her wheelchair, stand on the scale with significant help, and also drank a little coffee and eat a few pieces of [place] toast. -Afterwards she immediately went back to bed. -Caregiver had reported at one point she slept 14 hours straight and basically spent the past 3-4 days mostly sleeping. -Family has noticed very steady decline cognitively and physically over these past months. -The patient has lost substantial weight: from 97.2 pounds on July 11 to 89 pounds today on the home scale. -Family does note that she prior to this recent change of condition she was eating, but also losing weight. -They reported phlegm production yesterday, but today she has no cough, no phlegm phlegm. Social History - Living Situation Living arrangement: At home Living Situation: With family, With caregiver(s) Support System: -Patient lives at home, and her great nephew Twan ([phone] mob), lives on her property and is closely involved with her care. -Edith ([phone] mobile) is her longtime caregiver and works 5-6 days a week about 7 hours/day. -Her son Osvaldo ([phone] mobile) is her DPOA and [place]. He visits her regularly. -She has numerous family members in the immediate area who visit regularly. Medications/Allergies - Medications Home Medications: Ambulatory Orders Medication Instructions Recorded Confirmed Lisinopril [Zestril] 40 mg PO DAILY 07/18/13 07/11/18 Metoprolol Tartrate [Lopressor] 50 mg PO BID 07/18/13 07/11/18 Clopidogrel [Plavix] 75 mg PO DAILY 01/02/16 07/11/18 Hydrochlorothiazide 25 mg PO DAILY 01/02/16 07/11/18 lamoTRIgine [LaMICtal] 100 mg PO BID 01/02/16 07/11/18 Amlodipine Besylate [Norvasc] 5 mg PO DAILY 11/08/17 05/09/18 Potassium Chloride 20 meq PO DAILY #5 packet 11/09/17 01/20/18 Haloperidol Lactate [Haloperidol 0.5 ml PO BID PRN MDD 2mg/mL. 03/08/18 07/11/18 Lactate (Oral soln bottle)] 1mg/0.5mL Acetaminophen 500 - 1,000 mg PO Q8H PRN 05/09/18 07/11/18 - Allergies Allergies/Adverse Reactions: Allergies Allergy/AdvReac Type Severity Reaction Status Date / Time No Known Drug Allergies Allergy Verified 11/05/17 06:29 Review of Systems - Constitutional Constitutional: reports: Fatigue, Weakness, Poor appetite, Weight loss (89 lbs 08/23/18. 97.2 lbs 07/01/18.) - Ears, Nose & Throat Ears, Nose & Throat: reports: Hearing loss, Other (phlegm reported yesterday) - Cardiovascular Cardiovascular: reports: Decr. exercise tolerance - Gastrointestinal Gastrointestinal: reports: Poor appetite - Genitourinary Genitourinary: reports: Incontinence - Musculoskeletal Musculoskeletal: reports: Limited range of motion, Muscle weakness, Assistive devices (wheelchair), Transfer issues (requires full assist. Her nephew just lifts her and places her in bed, in wheelchair, etc.) - Neurological Neurological: reports: General weakness, Memory problems, Pre-existing deficit - Psychiatric Psychiatric: reports: Depression (episodes of tearfulness), Behavior disturbances (h/o paranoia, episodic confusion) - Other Findings Other Findings: Limited ROS Physical Exam - Vital Signs Temperature: 96.5 F Pulse Rate: 89 O2 Saturation: 95 Blood Pressure: 169/97 (wrist) - Physical Exam General Appearance: positive: No acute distress, Lethargic Eyes Bilateral: positive: No lid inflammation, No scleral icterus ENT: positive: Dry mucous membranes Neck: positive: Trachea midline Cardiovascular: positive: Regular rate & rhythm, No murmur, No gallop Respiratory: positive: Chest non-tender, No respiratory distress, Diminished throughout, Rales (moderate) Skin: positive: Pallor, Dryness Extremities: positive: No pedal edema, Other (significant muscle wasting) Neurologic/Psychiatric: positive: Weakness, Unintelligible speech, Flat affect Palliative Care - POLST Patient has POLST: Yes POLST Status: DNR, Selective Treatment Pain: No pain Tiredness/Fatigue: Severe (7-10), Comment (extensive sleeping) Anorexia: Severe (7-10), Weight loss Performance Status: wheelchair bound, requires full assist for transfers weight loss increased difficulty swallowing - Palliative Care Discussion: Discussed with family members Twan (great nephew) and Osvaldo (son/DPOA) family's goals, which are comfort and qualify of life. They have noted significant declining of the patient's function, cognition, and awareness. Hospice aligns with their goals, and the family, especially Twan, has had prior experience with a family member on Hospice. Considering her declining condition and increased difficulty eating and swallowing, they agree to transition the patient to Hospice. Impression and Recommendations - Palliative Care Impression: This is a very frail, malnourished, and cachectic 87-year-old woman who fractured her R femur in October 2017 and has steadily declined since then. Most recently she has been sleeping most of the day, was unrousable yesterday, with increased difficulty with eating and swallowing, and a weight loss of 8.2 lbs over the past month, now weighing 89 lbs. She meets criteria for Hospice based on a diagnosis of protein calorie malnutrition, and transitioning her to Hospice aligns with the family's goals of care, which are keeping her comfortable, at home, and surrounded by family. Recommendations/Counseling Done: Protein calorie malnutrition: Worsening problems with eating and swallowing. Weight loss of 8.2 lbs between 911 abd 08/23, today she weight 89 lbs. Dementia with behaviors: Declining. On PRN heloperidol for agitation and paranoia. Atrial fibrillation: On clopidogrel to prevent thrombotic event; metoprolol for rate control. HTN: Elevated today at 169/97. On lisinopril, metroprolol, Hctz. Advanced care planning: Patient meets criteria for Hospice (diagnosis: malnutrition), family supports transition to Hospice. Recommended to Dr White's office to refer patient to Hospice service. Time Spent: 45 minutes were spent with more than 50% of the time spent on counseling, education, anticipatory guidance, weighing benefits and burdens, and coordination of care transitioning to Hospice.
== END 2018-08-23 11:51 | disposition home or self-care (01) ==
LOC: PC 11:50
PROVIDERS: ATTEND Nurse Practitioner
DX: Z51.5 Encounter for palliative care (principal); E46 Unspecified protein-calorie malnutrition; F03.91 Unspecified dementia, unspecified severity, with behavioral disturbance; I48.2 Chronic atrial fibrillation; I12.9 Hypertensive chronic kidney disease with stage 1 through stage 4 chronic kidney disease, or unspecified chronic kidney disease; E11.22 Type 2 diabetes mellitus with diabetic chronic kidney disease; N18.9 Chronic kidney disease, unspecified; Z99.3 Dependence on wheelchair; Z91.81 History of falling; Z66 Do not resuscitate; Z79.899 Other long term (current) drug therapy
CPT/HCPCS: 99349